=== PATIENT | male | born 1950 | race Caucasian/White ===

== ENCOUNTER 2020-05-31 15:22 | Outpatient (REF) | payer OTHER, SELFPAY | END 2020-05-31 15:23 | disposition home or self-care (01) | LOC: HO.LAB 15:22 | PROVIDERS: PCP Internal Medicine; Visit Provider Internal Medicine | DX: Z20.822 Contact with and (suspected) exposure to COVID-19 (principal) | CPT/HCPCS: 36415; C9803; U0003 ==

== ENCOUNTER 2020-06-30 10:24 | Outpatient (REF) | payer OTHER, SELFPAY | END 2020-06-30 10:25 | disposition home or self-care (01) | LOC: HO.LAB 10:24 | PROVIDERS: Visit Provider Internal Medicine | DX: Z20.822 Contact with and (suspected) exposure to COVID-19 (principal) | CPT/HCPCS: 36415; C9803; U0003; U0005 ==

== ENCOUNTER 2020-07-06 14:09 | Inpatient (IN) | payer MEDICARE, SELFPAY ==
--- NOTE | ~2020-07-06 | XR_ITS ---
EXAMINATION: XR CHEST CLINICAL INFORMATION: Dyspnea COMPARISON: Chest radiographs 11/08/2015, 11/20/2012 TECHNIQUE: Portable upright AP view of the chest was obtained. FINDINGS: There are postsurgical changes with mediastinal clips and sternotomy wires. There is mild cardiac enlargement. Subtle groundglass opacities are suggested along the bronchovascular markings without lobar or segmental airspace consolidation or air bronchograms. The costophrenic sulci are clear. The vascularity is within normal. The visualized hilar and mediastinal contours and remainder of the bony structures are unremarkable. XR/XR chest 1V IMPRESSION: Subtle scattered bronchovascular groundglass opacities. Finding may be related to underlying early atypical or viral pneumonia.
--- NOTE | ~2020-07-06 | CT_ITS ---
EXAMINATION: CT ANGIOGRAM OF THE CHEST WITH AND WITHOUT CONTRAST (CT PULMONARY ANGIOGRAM FOR PE) CLINICAL INFORMATION: Reason for Exam dyspnea, elevated d-dimer r/o PE COMPARISON: Chest radiographs 07/06/2020, 11/08/2015 TECHNIQUE: Prior to contrast administration, noncontrast localization images were obtained. Subsequently, multidetector volumetric imaging was performed from the thoracic inlet to below the diaphragms following the administration of 65 mL Omnipaque 350 intravenous contrast. Sagittal, coronal, and MIP oblique sagittal reformatted images were obtained on the CT workstation, uploaded to PACS, and reviewed. This CT examination was performed using dose optimization techniques as appropriate, variously including the following: *Automated exposure control *Adjustment of mA and/or kV according to patient size (this includes techniques or standardized protocols for targeted exams where dose is matched to indication/reason for exam; i.e. extremities or head) *Use of iterative reconstruction technique Total exam dose-length product 524 mGy-cm FINDINGS: QUALITY OF STUDY/CONTRAST BOLUS: Satisfactory. PULMONARY ARTERIES: No central or segmental pulmonary emboli. Assessment is limited by mild respiratory motion artifact. THORACIC AORTA: The thoracic aorta is normal in caliber and shows no aneurysmal enlargement. There is no contrast in the aorta to assess for dissection. LUNG: There is mild respiratory motion artifact. There is no lobar or segmental airspace consolidation. No mass or lobar segmental airspace consolidation. There is peribronchial and perivascular cuffing. PLEURA: Small bibasilar effusions, greater on right. No pleural thickening or pleural-based mass. MEDIASTINUM: Prior median sternotomy. Cardiomegaly. No pericardial effusion. No septal bowing. CHEST WALL/AXILLA: No axillary or internal mammary lymphadenopathy. OSSEOUS STRUCTURES: Prior median sternotomy. Multilevel degenerative changes thoracic spine. No acute bony abnormality. UPPER ABDOMEN: There is some reflux of contrast into the hepatic veins suggesting elevated right heart pressure. CT/CT angio chest PE protocol IMPRESSION: 1. No visible acute or chronic pulmonary embolism. 2. No thoracic aortic enlargement. No contrast aorta to assess for dissection. 3. Respiratory motion artifact. No lobar or segmental airspace consolidation. 4. Cardiomegaly. Prior median sternotomy. Peribronchial and perivascular cuffing with small bibasilar effusions. Reflux of contrast into the hepatic veins suggesting elevated right heart pressure. VTE: negative
--- NOTE | 2020-07-06 07:47 | ECG_ITS ---
Test Reason : SOB Blood Pressure : / mmHG Vent. Rate : 088 BPM Atrial Rate : 086 BPM P-R Int : 000 ms QRS Dur : 074 ms QT Int : 388 ms P-R-T Axes : 000 -49 -16 degrees QTc Int : 469 ms Atrial fibrillation with premature ventricular or aberrantly conducted complexes Left axis deviation Inferior infarct , age undetermined Abnormal ECG When compared with ECG of 01-AUG-2002 06:49, Atrial fibrillation has replaced Sinus rhythm Vent. rate has increased BY 29 BPM Inferior infarct is now Present QT has lengthened Referred By: Debi Lockwood Electronically Signed By:KEILY REARDON MD
[2020-07-06 14:19] VITALS: BP 157/102; PULSE 79; RESP 18; TEMP 36.9; O2SAT 96; BMI 42.9
--- NOTE | 2020-07-06 14:22 | ED.ARRPALP ---
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 Mode of arrival: ambulatory Limitations: no limitations History of Present Illness HPI narrative: 70 yo male with HTN, HPL, s/p CABG 3V in 2002 has not seen a director medical safety regularly c/o chest tightness with exertion and BROOKS x 5 days sent by PCP for chest pain as well as new onset afib MD complaint: rapid heart beat Onset (ago): day(s) (5) Duration: intermittent Severity: moderate Context: occurred during exertion Associated symptoms: shortness of breath Related Data Home Medications Medication Instructions Recorded Confirmed lancets #100 ea 04/28/20 losartan 100 mg tablet 100 mg PO DAILY 04/28/20 rosuvastatin 40 mg tablet 40 mg PO BEDTIME 04/28/20 07/06/20 trazodone 100 mg tablet 100 mg PO BEDTIME PRN 04/28/20 07/06/20 hydrochlorothiazide 1 tab PO DAILY 07/06/20 07/06/20 metoprolol tartrate 1 tab PO BID 07/06/20 07/06/20 tamsulosin 1 cap PO DAILY 07/06/20 07/06/20 Allergies Allergy/AdvReac Type Severity Reaction Status Date / Time lisinopril Allergy Cough Verified 04/27/20 13:55 Review of Systems Review of Systems: Constitutional : No Fever, No Chills ENT/Mouth : No sore throat, No Rhinorrhea, No Swallowing Difficulty Eyes: No Eye Pain, No Swelling, No Redness Cardiovascular : pos Chest Pain, positive SOB, No Orthopnea, positive Edema Respiratory : No Cough, No Sputum, No Wheezing, positive dyspnea Gastrointestinal : No Nausea, No Vomiting, No Diarrhea, No abdominal Pain, No Hematochezia, No Melena Genitourinary : No Dysuria, No Urinary Frequency, No Hematuria Musculoskeletal : No joint pain, No Myalgias Skin : No Skin Lesions, No rash Neuro : No Weakness, No Numbness, No Dizziness, No Headache Psych : No Anxiety/Panic, No Depression Heme/Lymph: No Bruising, No Lymphadenopathy Endocrine : No Polyuria, No Polydipsia All other systems reviewed and are negative [facility] Past Medical History Attestation statement: The following information was validated with the patient. Source: old records reviewed and obtained from family Medical History (Updated 07/06/20 @ 16:32 by Debi Lockwood DO) GERD (gastroesophageal reflux disease) High cholesterol HTN (hypertension) Surgical History (Updated 07/06/20 @ 14:59 by Debi Lockwood DO) Hx of CABG Social History Social History (Updated 07/06/20 @ 15:00 by Debi Lockwood DO) Alcohol intake: never Smoking Status: Former smoker Use of substances other than those prescribed or required for medical reasons: No Advance Directives: No Advance Directives Information Provided: No Physical Exam Vital Signs: Vital Signs: Last Vital Signs Temp 98.5 F 07/06/20 14:19 Pulse 79 07/06/20 14:19 Resp 18 07/06/20 14:19 BP 157/102 H 07/06/20 14:19 Pulse Ox 96 07/06/20 14:19 Body Mass Index 42.9 Appearance: Alert. Oriented X3. No acute distress. Eyes: Pupils equal, round and reactive to light. ENT: Pharynx normal. Neck: Normal inspection. Neck supple. CVS: irregular heart rate and rhythm. Pulses normal. Respiratory: No respiratory distress. Breath sounds rales in the bases. Abdomen: Soft and nontender. Skin: Skin warm and dry. Normal skin color. Normal skin turgor. Extremities: 1+ pitting bilateral lower extremity edema. No calf ttp Neuro: Oriented X 3. No motor deficit. No sensory deficit. Course Course Course Narrative: CTA PE ordered for elevated ddimer, CXR ?COVID BNP elevated IV lasix ordered, COVID negative COVID PCR negative on 06/30 as well HAS-BLED score 1, CHADSvasc - 3 rate controlled but appears in failure, IV lasix ordered and PO aspirin taken at home already, no PE, will order eliquis at this time hospitalist notified and aware MDM - Arrhythmia/Palpitations MDM Narrative Medical decision making narrative: 70 yo male with 3V CABG in 2002, HTN, HPL here with 5 days of shortness of breath and BROOKS as well as chest pain on exertion, went to PCP found to be in afib, will need labs, EKG, troponin, BNP, ddimer if positive will obtain CTA - COVID swab ordered, no prior episodes of afib in past, has not seen director medical safety regularly, has no pain currently Lab Data Result diagrams: 07/06/20 14:29 07/06/20 14:29 Labs: Lab Results 07/06/20 07/06/20 07/06/20 Range/Units 14:28 14:28 14:28 WBC (4.8-10.8) X10*3/uL RBC (4.60-5.80) X10*6/uL Hgb (14.0-18.0) g/dl Hct (42-52) % MCV (80-98) fL MCH (27.0-33.0) pg MCHC (31.0-36.0) g/dl RDW (11.0-16.0) % Plt Count (160-400) X10*3/uL MPV (9.4-12.4) fL Immature Gran % (Auto) (0.0-0.4) % Neut % (Auto) (45-73) % Lymph % (Auto) (20-40) % [place] % (Auto) (2-11) % Eos % (Auto) (0-4) % Baso % (Auto) (0-2) % Lymph # (Auto) (1.2-4.9) X10*3/uL [place] # (Auto) (0.1-1.2) X10*3/uL Eos # (Auto) (0.0-0.4) X10*3/uL Baso # (Auto) (0.0-0.2) X10*3/uL Abs Immat Gran (auto) (0.00-0.03) X10*3/uL Absolute Neuts (auto) (2.0-8.3) X10*3/uL Absolute Nucleated RBC (0.0-0.012) X10*3/uL Nucleated RBC % (auto) (0.0-0.2) /100WBC PT 13.8 H (10.8-13.0) SEC INR 1.2 H (0.9-1.1) APTT 33.1 (24.1-38.0) SEC D-Dimer 484 NG/ML Sodium (135-145) mmol/L Potassium (3.3-5.1) mmol/L Chloride (96-108) mmol/L Carbon Dioxide (22-29) mmol/L Anion Gap (12-20) BUN (9-16) mg/dL Creatinine (0.5-1.4) mg/dL Estim Creat Clear Calc Estimated GFR Random Glucose (60-115) mg/dL Calcium (8.4-10.2) mg/dL Magnesium (1.6-2.6) mg/dL Total Bilirubin (0.0-1.0) mg/dL Direct Bilirubin (0.0-0.5) mg/dL AST (5-37) U/L ALT (0-40) U/L Alkaline Phosphatase (39-117) U/L Troponin I High Sens 13.7 (<3.5-35.0) ng/L B-Natriuretic Peptide Cancelled 581 H Total Protein (6.5-8.0) g/dL Albumin (3.5-5.0) g/dL TSH (0.32-4.0) uIU/mL COVID-19 (LINDA) (Negative) COVID-19 Clin Com 07/06/20 07/06/20 07/06/20 Range/Units 14:28 14:29 14:29 WBC 9.4 (4.8-10.8) X10*3/uL RBC 5.00 (4.60-5.80) X10*6/uL Hgb 14.2 (14.0-18.0) g/dl Hct 45.2 (42-52) % MCV 90.4 (80-98) fL MCH 28.4 (27.0-33.0) pg MCHC 31.4 (31.0-36.0) g/dl RDW 15.8 (11.0-16.0) % Plt Count 153 L (160-400) X10*3/uL MPV 11.3 (9.4-12.4) fL Immature Gran % (Auto) 0.3 (0.0-0.4) % Neut % (Auto) 55.8 (45-73) % Lymph % (Auto) 30.8 (20-40) % [place] % (Auto) 11.6 H (2-11) % Eos % (Auto) 1.1 (0-4) % Baso % (Auto) 0.4 (0-2) % Lymph # (Auto) 2.9 (1.2-4.9) X10*3/uL [place] # (Auto) 1.1 (0.1-1.2) X10*3/uL Eos # (Auto) 0.1 (0.0-0.4) X10*3/uL Baso # (Auto) 0.0 (0.0-0.2) X10*3/uL Abs Immat Gran (auto) 0.03 (0.00-0.03) X10*3/uL Absolute Neuts (auto) 5.3 (2.0-8.3) X10*3/uL Absolute Nucleated RBC 0.000 (0.0-0.012) X10*3/uL Nucleated RBC % (auto) 0.0 (0.0-0.2) /100WBC PT (10.8-13.0) SEC INR (0.9-1.1) APTT (24.1-38.0) SEC D-Dimer NG/ML Sodium 142 (135-145) mmol/L Potassium 4.5 (3.3-5.1) mmol/L Chloride 111 H (96-108) mmol/L Carbon Dioxide 21 L (22-29) mmol/L Anion Gap 15 (12-20) BUN 19 H (9-16) mg/dL Creatinine 0.80 (0.5-1.4) mg/dL Estim Creat Clear Calc 110.4 Estimated GFR > 60 Random Glucose 81 (60-115) mg/dL Calcium 8.7 (8.4-10.2) mg/dL Magnesium 2.1 (1.6-2.6) mg/dL Total Bilirubin 1.0 (0.0-1.0) mg/dL Direct Bilirubin 0.4 (0.0-0.5) mg/dL AST 22 (5-37) U/L ALT 17 (0-40) U/L Alkaline Phosphatase 79 (39-117) U/L Troponin I High Sens (<3.5-35.0) ng/L B-Natriuretic Peptide Total Protein 7.5 (6.5-8.0) g/dL Albumin 4.1 (3.5-5.0) g/dL TSH 0.54 (0.32-4.0) uIU/mL COVID-19 (LINDA) Negative (Negative) COVID-19 Clin Com See Note ECG Data Attestation: I personally reviewed and interpreted this ECG as follows: ECG interpretation date: 07/06/20 ECG interpretation time: 14:30 Interpretation: Rate: 88 Rhythm: afib wih PVCs [place]: left Normal QRS complex. ST T wave : normal, no DIDIER qTC: normal prior studies: no acute ischemia The study has been interpreted contemporaneously by me. . Discharge Plan Discharge Clinical Impression: Acute dyspnea Atrial fibrillation Qualifiers: Atrial fibrillation type: unspecified Qualified Code(s): I48.91 - Unspecified atrial fibrillation Chest pain Qualifiers: Chest pain type: unspecified Qualified Code(s): R07.9 - Chest pain, unspecified Congestive cardiac failure Qualifiers: Heart failure type: unspecified Heart failure chronicity: acute Qualified Code(s): I50.9 - Heart failure, unspecified Patient Disposition: Admitted As Inpatient
[2020-07-06 14:34] LABS: MANUAL DIFF FLAG NO
[2020-07-06 14:39] LABS: Basophils Percent Auto 0.4 % (0-2); Eosinophils Absolute Auto 0.1 X10*3/uL (0.0-0.4); Eosinophils Percent Auto 1.1 % (0-4); Hematocrit 45.2 % (42-52); Hemoglobin 14.2 g/dl (14.0-18.0); Imm Gran Abs Auto 0.03 X10*3/uL (0.00-0.03); Imm Gran Pct Auto 0.3 % (0.0-0.4); Lymphocytes Absolute Auto 2.9 X10*3/uL (1.2-4.9); Lymphocytes Percent Auto 30.8 % (20-40); Mean Corpuscular HGB Conc 31.4 g/dl (31.0-36.0); Mean Corpuscular Hemoglobin 28.4 pg (27.0-33.0); Mean Corpuscular Volume 90.4 fL (80-98); Mean Platelet Volume 11.3 fL (9.4-12.4); Monocytes Absolute Auto 1.1 X10*3/uL (0.1-1.2); Monocytes Percent Auto 11.6 % (2-11); Neutrophils Absolute Auto 5.3 X10*3/uL (2.0-8.3); Neutrophils Percent Auto 55.8 % (45-73); Platelet Count 153 X10*3/uL (160-400); Red Cell Distribution Width 15.8 % (11.0-16.0); White Blood Count 9.4 X10*3/uL (4.8-10.8)
[2020-07-06 14:44] LABS: INTERNATIONAL NORM RATIO 1.2 (0.9-1.1); Prothrombin Time 13.8 SEC (10.8-13.0)
[2020-07-06 14:47] LABS: D Dimer 484 NG/ML; Partial Thromboplastin Time 33.1 SEC (24.1-38.0)
[2020-07-06 15:02] LABS: COVID-19 Test Negative (Negative); IDNOW Serial# 9DD0AD1C
[2020-07-06 15:08] LABS: Alanine Aminotransferase 17 U/L (0-40); Albumin Level 4.1 g/dL (3.5-5.0); Alkaline Phosphatase 79 U/L (39-117); Anion Gap 15 (12-20); Aspartate Amino Transferase 22 U/L (5-37); Bilirubin Direct 0.4 mg/dL (0.0-0.5); Blood Urea Nitrogen 19 mg/dL (9-16); Calcium 8.7 mg/dL (8.4-10.2); Carbon Dioxide 21 mmol/L (22-29); Chloride 111 mmol/L (96-108); Creatinine Clr Calc Pharmacy 110.4; Estimated Glomerular Filt Rate > 60; Glucose Random 81 mg/dL (60-115); Magnesium 2.1 mg/dL (1.6-2.6); Potassium 4.5 mmol/L (3.3-5.1); Sodium 142 mmol/L (135-145); Total Protein 7.5 g/dL (6.5-8.0)
[2020-07-06 15:09] LABS: B Type Natriuretic Peptide 581 pg/mL (<100); Troponin-I High Sensitivity 13.7 ng/L (<3.5-35.0)
[2020-07-06 15:27] LABS: Thyroid Stimulating Hormone 0.54 uIU/mL (0.32-4.0)
[2020-07-06] MEDS: iohexoL 350 MG/ML 100 ML INFUS..BTL 65 ML IV (16:04)
[2020-07-06 16:48] VITALS: BP 169/100; PULSE 88; RESP 18; TEMP 36.6; O2SAT 97
[2020-07-06] MEDS: Apixaban 5 MG TABLET PO (16:59)
--- NOTE | 2020-07-06 17:39 | P.HPHOSP_ITS ---
History of Present Illness Date of Service: 07/06/20 Chief Complaint: chest pain, shortness of breath This is a 70-year-old Cymro-speaking male with history of coronary artery disease who presents to the emergency department with chest pain and shortness of breath. His history was obtained with the help of a military pay clerk. [place] so he is a vague historian. Patient reports chest pain in the center of his chest which is worse with exertion and reproducible on exam. It has been intermittent over the past 5 days. It typically lasts about 5 minutes. There is no pleuritic component. He also reports dyspnea on exertion. His shortness of breath improves when lying down. He denies cough, fever or chills. He reports palpitations but it is unclear how often this occurs. He has noticed swelling in his legs. He has a history of CAD but is unable to describe any of his medications or other medical history. HIs EKG was significant for atrial fibrillation with controlled heart rate. BNP was 581 and troponin 13.7. He does not think he has a history of atrial fibrillation. Was negative for PE, did show small bibasilar effusions. He was treated with IV Lasix and 1 dose of Eliquis. Review of Systems Review of Systems: Yes all other systems are reviewed and are negative Constitutional: Constitutional: Denies chills and Denies fever(s) Cardiovascular: Cardiovascular: Reports chest pain, Reports palpitations, Reports dyspnea on exertion and Denies orthopnea Respiratory: Respiratory: Denies cough and Reports dyspnea on exertion Gastrointestinal: Gastrointestinal: Denies abdominal pain Endocrine: Endocrine: Reports palpitations [facility] Medical History (Updated 07/06/20 @ 17:46 by ANTONIO Hairston) BPH (benign prostatic hyperplasia) CAD (coronary artery disease) GERD (gastroesophageal reflux disease) High cholesterol HTN (hypertension) Functional capacity: independent ambulation Family History Other No cardiac disease Family history: reviewed and not pertinent Surgical History Hx of CABG Social History (Updated 07/06/20 @ 17:47 by ANTONIO Hairston) Household Members: Spouse Alcohol intake: never Smoking Status: Former smoker Use of substances other than those prescribed or required for medical reasons: No Advance Directives: No Advance Directives Information Provided: No Meds Allergies Allergy/AdvReac Type Severity Reaction Status Date / Time lisinopril Allergy Cough Verified 04/27/20 13:55 Active Medications: Current Medications Generic Name Dose Route Start Last Admin Trade Name Freq PRN Reason Stop Dose Admin Pharmacy Consult 1 each 07/06/20 16:34 Consult Rx Perform Med Rec MISCELLANE ONCE PRN Consult order Home Medications Medication Instructions Recorded Confirmed Last Taken Type lancets #100 ea 04/28/20 Unknown History hydrochlorothiazide 1 tab PO DAILY 07/06/20 07/06/20 Unknown History metoprolol tartrate 1 tab PO BID 07/06/20 07/06/20 Unknown History rosuvastatin 1 tab PO BEDTIME 07/06/20 07/06/20 Unknown History tamsulosin 1 cap PO DAILY 07/06/20 07/06/20 Unknown History trazodone 1 tab PO BEDTIME PRN 07/06/20 07/06/20 Unknown History Physical Exam Vital Signs and Narrative: Vital Signs: Last Vital Signs Temp 97.8 F 07/06/20 16:48 Pulse 88 07/06/20 16:48 Resp 18 07/06/20 16:48 BP 169/100 H 07/06/20 16:48 Pulse Ox 97 07/06/20 16:48 Body Mass Index 42.9 Const: General: alert and awake Nutritional Appearance: obese Orientation/consciousness: patient oriented x3 HENMT: Head: Yes normocephalic and Yes atraumatic Eyes: Sclerae: sclerae normal Chest: Chest palpation & inspection: normal inspection of the chest Resp: Effort & Inspection: normal respiratory effort and no respiratory distress Auscultation: rales bilateral at the base Cardio: Rate: regular rate Rhythm: abnormal rhythm irregularly irregular GI: Palpation (GI): Soft to palpation and nontender Skin: General skin exam: no rashes or lesions noted Neuro: General: patient oriented x3 Cranial nerves: Yes CN's II-XII intact bilaterally and Yes Bilaterally intact EOM present Extrem: Other: b/l leg edema Results Labs CBC and Chem 7: 07/06/20 14:29 07/06/20 14:29 Labs: Laboratory Results - last 24 hr 07/06/20 07/06/20 07/06/20 14:28 14:28 14:28 MCV MCH MCHC RDW Plt Count MPV Immature Gran % (Auto) Neut % (Auto) Lymph % (Auto) [place] % (Auto) Eos % (Auto) Baso % (Auto) Lymph # (Auto) [place] # (Auto) Eos # (Auto) Baso # (Auto) Abs Immat Gran (auto) Absolute Neuts (auto) Absolute Nucleated RBC Nucleated RBC % (auto) PT 13.8 H INR 1.2 H APTT 33.1 D-Dimer 484 Anion Gap Estim Creat Clear Calc Estimated GFR Random Glucose Calcium Magnesium Total Bilirubin Direct Bilirubin AST ALT Alkaline Phosphatase Troponin I High Sens 13.7 B-Natriuretic Peptide Cancelled 581 H Total Protein Albumin TSH COVID-19 (LINDA) COVID-19 Clin Com 07/06/20 07/06/20 07/06/20 14:28 14:29 14:29 MCV 90.4 MCH 28.4 MCHC 31.4 RDW 15.8 Plt Count 153 L MPV 11.3 Immature Gran % (Auto) 0.3 Neut % (Auto) 55.8 Lymph % (Auto) 30.8 [place] % (Auto) 11.6 H Eos % (Auto) 1.1 Baso % (Auto) 0.4 Lymph # (Auto) 2.9 [place] # (Auto) 1.1 Eos # (Auto) 0.1 Baso # (Auto) 0.0 Abs Immat Gran (auto) 0.03 Absolute Neuts (auto) 5.3 Absolute Nucleated RBC 0.000 Nucleated RBC % (auto) 0.0 PT INR APTT D-Dimer Anion Gap 15 Estim Creat Clear Calc 110.4 Estimated GFR > 60 Random Glucose 81 Calcium 8.7 Magnesium 2.1 Total Bilirubin 1.0 Direct Bilirubin 0.4 AST 22 ALT 17 Alkaline Phosphatase 79 Troponin I High Sens B-Natriuretic Peptide Total Protein 7.5 Albumin 4.1 TSH 0.54 COVID-19 (LINDA) Negative COVID-19 Clin Com See Note Imaging Radiologist's Impressions: Impressions Chest X-Ray 07/06/20 14:23 IMPRESSION: Subtle scattered bronchovascular groundglass opacities. Finding may be related to underlying early atypical or viral pneumonia. Chest CTA 07/06/20 14:54 IMPRESSION: 1. No visible acute or chronic pulmonary embolism. 2. No thoracic aortic enlargement. No contrast aorta to assess for dissection. 3. Respiratory motion artifact. No lobar or segmental airspace consolidation. 4. Cardiomegaly. Prior median sternotomy. Peribronchial and perivascular cuffing with small bibasilar effusions. Reflux of contrast into the hepatic veins suggesting elevated right heart pressure. VTE: negative Assessment and Plan (1) Atrial fibrillation: Qualifiers: Atrial fibrillation type: unspecified Qualified Code(s): I48.91 - Unspecified atrial fibrillation Status: Acute (2) Acute dyspnea: Status: Acute (3) Chest pain: Qualifiers: Chest pain type: unspecified Qualified Code(s): R07.9 - Chest pain, unspecified Status: Acute This is a 70-year-old Cymro-speaking male with a history of CAD status post CABG, BPH, hypertension presents to the emergency department with shortness of breath and chest pain found to have new onset atrial fibrillation possible CHF New onset atrial fibrillation Heart rate controlled Chads score 3. TSH wnl -continue dose of beta-alana for rate control -given 1 dose of Eliquis in ED, will continue -echocardiogram -cardiology consult Dyspnea No evidence of infection sx worse with exertion. small effusions on imaging BNP 581, no previous. seems c/w chf -IV lasix -echo -cardiology consult -trend troponin Chest pain ? r/t afib h/o CAD s/p CABG, but initial trop 13.7 also somewhat reproducible on exam -trend troponin -continue home asa, statin, BB HTN continue HCTZ, metoprolol BPH continue flomax Morbid obesity 42.9 likely contributing to dyspnea dvt ppx - eliquis code status - full code this case was discussed with Dr. Cabrera
[2020-07-06] MEDS: Furosemide 40 MG/4 ML VIAL IVPUSH (17:58)
--- NOTE | 2020-07-06 18:21 | PM.EVENT ---
Event Note Date of Service: 07/06/20 Event Note: The patient was seen and evaluated with ANTONIO Melgar. I agree with her note, assessment and plan with the following. In summary, 70 years old male with PMH of CAD, HTN, GERD, BPH who presents to the hospital with chest pain and shortness of breath. He is not the best historian he reports episodes of pain that comes and goes. He also reported dyspnea on exertion. Denies any fever, chills, coughing, swelling in his extremities. Found to be in atrial fibrillation in the emergency with unclear chronicity. Admitted for further evaluation and treatment. New onset atrial fibrillation Rate control Moises score of 3 Start Eliquis full dose To check echo and get cardiology eval in the morning Dyspnea on exertion Seems to be related to episodes of AFib Will monitor and check physical therapy evaluation, if continue to be symptomatic might consider cardioversion EKG showing no ST or T-wave changes to suggest ACS Rest of evaluations by PA note.
[2020-07-06 19:43] VITALS: BP 169/96; PULSE 82; RESP 18; O2SAT 97
[2020-07-06 22:00] LABS: Troponin-I High Sensitivity 12.7 ng/L (<3.5-35.0)
[2020-07-06 22:06] VITALS: BP 164/95; PULSE 76; RESP 25; TEMP 36.9; O2SAT 97
[2020-07-06 22:07] VITALS: BP 164/95; PULSE 74
[2020-07-06] MEDS: Metoprolol Tartrate 50 MG TABLET PO (22:07)
[2020-07-06] MEDS: Atorvastatin Calcium 80 MG TABLET PO (22:07)
[2020-07-07] VITALS (15 sets, daily range): BP systolic 116–157; BP diastolic 66–103; PULSE 58–76; RESP 14–22; TEMP 36.4–36.8; O2SAT 94–98; BMI 41.8
--- NOTE | 2020-07-07 00:11 | PC.NURSE ---
pt oob to bathroom with steady gait. pt states he suffers from chonic back pain to his lower back. pt denies chest pain.
--- NOTE | 2020-07-07 02:50 | PC.NURSE ---
pt ambulated to bathroom with steady gait. no sob noted. pt back to bed and denies pain. vitals stable skin pink warm and dry.
[2020-07-07 05:59] LABS: Imm Gran Abs Auto 0.02 X10*3/uL (0.00-0.03); Imm Gran Pct Auto 0.2 % (0.0-0.4); Mean Platelet Volume 11.5 fL (9.4-12.4); PLT CLUMP 1; SCAN SMEAR FLAG 1
[2020-07-07 06:01] LABS: Basophils Percent Auto 0.5 % (0-2); Eosinophils Absolute Auto 0.1 X10*3/uL (0.0-0.4); Eosinophils Percent Auto 1.2 % (0-4); Hematocrit 43.4 % (42-52); Hemoglobin 13.9 g/dl (14.0-18.0); Lymphocytes Absolute Auto 1.8 X10*3/uL (1.2-4.9); Lymphocytes Percent Auto 22.3 % (20-40); MANUAL DIFF FLAG NO; Mean Corpuscular Hemoglobin 28.8 pg (27.0-33.0); Monocytes Absolute Auto 0.9 X10*3/uL (0.1-1.2); Monocytes Percent Auto 10.7 % (2-11); Neutrophils Absolute Auto 5.3 X10*3/uL (2.0-8.3); Neutrophils Percent Auto 65.1 % (45-73); Platelet Count 134 X10*3/uL (160-400); Red Blood Count 4.82 X10*6/uL (4.60-5.80); Red Cell Distribution Width 15.8 % (11.0-16.0); White Blood Count 8.1 X10*3/uL (4.8-10.8)
[2020-07-07 06:22] LABS: B Type Natriuretic Peptide 579 pg/mL (<100)
[2020-07-07 06:35] LABS: Anion Gap 12 (12-20); Blood Urea Nitrogen 18 mg/dL (9-16); Calcium 8.8 mg/dL (8.4-10.2); Carbon Dioxide 26 mmol/L (22-29); Chloride 108 mmol/L (96-108); Creatinine Clr Calc Pharmacy 110.4; Estimated Glomerular Filt Rate > 60; Glucose Random 96 mg/dL (60-115); Potassium 3.8 mmol/L (3.3-5.1); Sodium 142 mmol/L (135-145)
[2020-07-07] MEDS: 0.9 % Sodium Chloride Flush 3 ML SYRINGE IVFLUSH ×3 (07:34→21:33)
--- NOTE | 2020-07-07 07:35 | PC.NURSE ---
pt is alert and oriented x3. Pt has bilateral +1 pitting edema on lower legs. skin is shiny and taut but normal in color, pt denies any pain in legs or feet. pedal pulses present bilaterally. lung sounds clear bilaterally in all [place], pt denies feeling short of breath and denies pain with respirations. respiratory rate and depth normal, effort is non-labored. pt able to speak in full sentences. pt given bedside urinal to monitor intake and output. pt currently eating breakfast. pt aware of plan of care admission to hospital.
--- NOTE | 2020-07-07 09:05 | PC.NURSE ---
pt's son arely stopped in for an updated status on his father. son states that he has been unable to get his father on his phone since yesterday after his arrival to ed. pt is aware that is was in the waiting room for an update. pt 's phone was so this rn has put pt's phone to charge for him. pt's son is aware of plan of care for admission to hospital for his father.
[2020-07-07] MEDS: Metoprolol Tartrate 50 MG TABLET PO (09:14)
[2020-07-07] MEDS: Apixaban 5 MG TABLET PO ×2 (09:14→21:29)
[2020-07-07] MEDS: hydroCHLOROthiazide 25 MG TABLET PO (09:15)
[2020-07-07] MEDS: Tamsulosin HCL 0.4 MG CAPSULE PO (09:15)
--- NOTE | 2020-07-07 09:15 | PC.NURSE ---
this rn called pt's bing ([phone]) and gave her an update on pt status. she is aware that pt's phone is charging and he will call her as soon as the phone charged. pt's son earlier had some concern about pt signing any paper work because son states that his father is unable to read and write. aware.
[2020-07-07] MEDS: Furosemide 40 MG/4 ML VIAL IVPUSH (09:16)
--- NOTE | 2020-07-07 10:06 | PC.NURSE ---
Rechecked blood pressure, 135/95, pt has voided 500cc of clear yellow urine since 7am. pt still has slight pitting in lower legs bilaterally but less than before. skin is still shiny and taut. pt denies pain in lower legs or feet bilaterally. pedal pulses palpable bilaterally. aware.
--- NOTE | 2020-07-07 11:10 | PC.NURSE ---
pt is having echocardiogram being done at bedside.
--- NOTE | 2020-07-07 12:22 | P.CONCA_ITS ---
History of Present Illness History of Present Illness Date of Service: 07/07/20 Requesting physician: Bharathi Quintanilla Consult reason: chest pain and congestive heart failure Chief complaint: Afib CHF Narrative: Thank you for asking us to consult on Chucko0 for new onset congestive heart failure. Patient is Lao speaking 70-year-old male with prior history of coronary artery disease status post 3 vessel coronary artery bypass grafting by Dr. Rasmussen at [facility] in July of 2002 for angina. Patient since then has done generally well. Saw his food services director about 3 weeks ago when he was doing well. About a week ago he started noticing symptoms of exertional chest discomfort which he describes as pressure when he t jessica to walk fast in a grocery store with his . Symptoms then subside with rest in 5 minutes. He has also been noticing increasing exertional shortness of breath, however says he has been short of breath ever since his childhood. He has noticed some leg swelling over the last week as well as gaining weight and some abdominal distension as well as shortness of breath when he is laying down. He also noticed some palpitations however is very vague about the same. He came to the hospital was noted to be in atrial fibrillation with controlled ventricular response was noted to be in congestive heart failure by elevated BNP. He has been given Lasix with good diuresis. He says he feels better and shortness of breath is improved. Denies any chest pressure right now. His troponins are flat Review of Systems Constitutional: Constitutional: Denies body ache(s), Denies chills, Denies fever(s) and Denies headache(s) ENT: Denies headache(s) Cardiovascular: Cardiovascular: Reports Abdominal Distension, Reports chest pain with activity, Reports leg edema, Denies Loss of Consciousness, Denies palpitations, Reports dyspnea on exertion and Reports orthopnea Respiratory: Respiratory: Denies cough, Denies excessive phlegm production and Reports dyspnea on exertion Gastrointestinal: Gastrointestinal: Reports no additional gastrointestinal complaints Neurologic: Reports system reviewed and no additional complaints, except as documented and Denies headache(s) Psychiatric: Psychiatric: Reports no additional psychiatric complaints Endocrine: Endocrine: Reports no additional endocrine complaints and Denies palpitations PMFSH Past Medical History Medical History (Updated 07/07/20 @ 12:33 by Jaison Rivera MD) BPH (benign prostatic hyperplasia) CAD (coronary artery disease) Congestive heart failure Exertional chest pain GERD (gastroesophageal reflux disease) High cholesterol HTN (hypertension) Functional capacity: independent ambulation Family History Family History Other No cardiac disease Family history: reviewed and not pertinent Surgical History Surgical History Hx of CABG Social History Social History Household Members: Spouse Alcohol intake: never Smoking Status: Former smoker Use of substances other than those prescribed or required for medical reasons: No Advance Directives: No Advance Directives Information Provided: No Meds Allergies Allergy/AdvReac Type Severity Reaction Status Date / Time lisinopril Allergy Cough Verified 04/27/20 13:55 Active Medications: Current Medications Generic Name Dose Route Start Last Admin Trade Name Freq PRN Reason Stop Dose Admin Acetaminophen 650 mg 07/06/20 20:40 Acetaminophen 325 Mg Tablet PO Q6H PRN Pain, Mild (Pain Scale 1-3) Apixaban 5 mg 07/07/20 09:00 07/07/20 09:14 Apixaban 5 Mg Tablet PO 5 mg BID FABY Administration Atorvastatin Calcium 80 mg 07/06/20 21:00 07/06/20 22:07 Atorvastatin Calcium 80 Mg Tablet PO 80 mg BEDTIME FABY Administration Docusate Sodium 100 mg 07/06/20 20:40 Docusate Sodium 100 Mg Capsule PO DAILY PRN Constipation Furosemide 40 mg 07/07/20 09:00 07/07/20 09:16 Furosemide 40 Mg/4 Ml Vial IVPUSH 40 mg DAILY FABY Administration Protocol Hydrochlorothiazide 25 mg 07/07/20 09:00 07/07/20 09:15 Hydrochlorothiazide 25 Mg Tablet PO 25 mg DAILY FABY Administration Protocol Metoprolol Tartrate 50 mg 07/06/20 21:00 07/07/20 09:14 Metoprolol Tartrate 50 Mg Tablet PO 50 mg BID FABY Administration Protocol Ondansetron HCl 4 mg 07/06/20 20:40 Ondansetron Hcl 4 Mg/2 Ml Vial IVPUSH Q8H PRN Nausea and Vomiting Pharmacy Consult 1 each 07/06/20 16:34 Consult Rx Perform Med Rec MISCELLANE ONCE PRN Consult order Sodium Chloride 3 ml 07/07/20 00:00 07/07/20 07:34 0.9 % Sodium Chloride Flush 3 Ml Syringe IVFLUSH 3 ml QSHIFT FABY Administration Tamsulosin HCl 0.4 mg 07/07/20 09:00 07/07/20 09:15 Tamsulosin Hcl 0.4 Mg Capsule PO 0.4 mg DAILY FABY Administration Trazodone HCl 100 mg 07/06/20 20:40 Trazodone Hcl 100 Mg Tablet PO BEDTIME PRN Insomnia Home Medications Medication Instructions Recorded Confirmed Last Taken Type lancets #100 ea 04/28/20 Unknown History hydrochlorothiazide 1 tab PO DAILY 07/06/20 07/06/20 Unknown History metoprolol tartrate 1 tab PO BID 07/06/20 07/06/20 Unknown History rosuvastatin 1 tab PO BEDTIME 07/06/20 07/06/20 Unknown History tamsulosin 1 cap PO DAILY 07/06/20 07/06/20 Unknown History trazodone 1 tab PO BEDTIME PRN 07/06/20 07/06/20 Unknown History Physical Exam Vital Signs: Vital Signs: Last Vital Signs Temp 98.2 F 07/07/20 09:12 Pulse 72 07/07/20 09:14 Resp 18 07/07/20 09:12 BP 135/85 07/07/20 09:14 Pulse Ox 97 07/07/20 09:12 Body Mass Index 41.8 Const: General: cooperative, comfortable, alert and awake Nutritional Appearance: obese Orientation/consciousness: patient oriented x3 Limitations: no limitations HENMT: Head: Yes normocephalic and Yes atraumatic Neck: Neck: Yes trachea midline, Yes supple and Yes JVD Resp: Effort & Inspection: normal respiratory effort Auscultation: clear to auscultation bilaterally Cardio: Palpation: abnormal PMI Rhythm: abnormal rhythm irregularly irregular Heart sounds: S1 normal heart sound present and S2 normal heart sound present GI: Auscultation: normal bowel sounds Skin: General skin exam: no rashes or lesions noted Neuro: General: patient oriented x3 and no focal motor deficits Extrem: General: No clubbing, No cyanosis and Yes edema Psych: Appearance: grossly normal Results Labs and Meds Result diagrams: 07/07/20 05:50 07/07/20 05:51 Lab results: Laboratory Results - last 24 hr 07/06/20 07/06/20 07/06/20 14:28 14:28 14:28 WBC RBC Hgb Hct MCV MCH MCHC RDW Plt Count MPV Immature Gran % (Auto) Neut % (Auto) Lymph % (Auto) Emanuel % (Auto) Eos % (Auto) Baso % (Auto) Lymph # (Auto) Emanuel # (Auto) Eos # (Auto) Baso # (Auto) Abs Immat Gran (auto) Absolute Neuts (auto) Absolute Nucleated RBC Nucleated RBC % (auto) PT 13.8 H INR 1.2 H APTT 33.1 D-Dimer 484 Sodium Potassium Chloride Carbon Dioxide Anion Gap BUN Creatinine Estim Creat Clear Calc Estimated GFR Random Glucose Calcium Magnesium Total Bilirubin Direct Bilirubin AST ALT Alkaline Phosphatase Troponin I High Sens 13.7 B-Natriuretic Peptide Cancelled 581 H Total Protein Albumin TSH COVID-19 (LINDA) COVID-[facility] 07/06/20 07/06/20 07/06/20 14:28 14:29 14:29 WBC 9.4 RBC 5.00 Hgb 14.2 Hct 45.2 MCV 90.4 MCH 28.4 MCHC 31.4 RDW 15.8 Plt Count 153 L MPV 11.3 Immature Gran % (Auto) 0.3 Neut % (Auto) 55.8 Lymph % (Auto) 30.8 Emanuel % (Auto) 11.6 H Eos % (Auto) 1.1 Baso % (Auto) 0.4 Lymph # (Auto) 2.9 Emanuel # (Auto) 1.1 Eos # (Auto) 0.1 Baso # (Auto) 0.0 Abs Immat Gran (auto) 0.03 Absolute Neuts (auto) 5.3 Absolute Nucleated RBC 0.000 Nucleated RBC % (auto) 0.0 PT INR APTT D-Dimer Sodium 142 Potassium 4.5 Chloride 111 H Carbon Dioxide 21 L Anion Gap 15 BUN 19 H Creatinine 0.80 Estim Creat Clear Calc 110.4 Estimated GFR > 60 Random Glucose 81 Calcium 8.7 Magnesium 2.1 Total Bilirubin 1.0 Direct Bilirubin 0.4 AST 22 ALT 17 Alkaline Phosphatase 79 Troponin I High Sens B-Natriuretic Peptide Total Protein 7.5 Albumin 4.1 TSH 0.54 COVID-19 (LINDA) Negative COVID-19 Interact Public Safety Com See Note 07/06/20 07/07/20 07/07/20 21:30 05:50 05:50 WBC 8.1 RBC 4.82 Hgb 13.9 L Hct 43.4 MCV 90.0 MCH 28.8 MCHC 32.0 RDW 15.8 Plt Count 134 L MPV 11.5 Immature Gran % (Auto) 0.2 Neut % (Auto) 65.1 Lymph % (Auto) 22.3 Emanuel % (Auto) 10.7 Eos % (Auto) 1.2 Baso % (Auto) 0.5 Lymph # (Auto) 1.8 Emanuel # (Auto) 0.9 Eos # (Auto) 0.1 Baso # (Auto) 0.0 Abs Immat Gran (auto) 0.02 Absolute Neuts (auto) 5.3 Absolute Nucleated RBC 0.000 Nucleated RBC % (auto) 0.0 PT INR APTT D-Dimer Sodium Potassium Chloride Carbon Dioxide Anion Gap BUN Creatinine Estim Creat Clear Calc Estimated GFR Random Glucose Calcium Magnesium Total Bilirubin Direct Bilirubin AST ALT Alkaline Phosphatase Troponin I High Sens 12.7 B-Natriuretic Peptide 579 H Total Protein Albumin TSH COVID-19 (LINDA) COVID-19 Interact Public Safety Com 07/07/20 05:51 WBC RBC Hgb Hct MCV MCH MCHC RDW Plt Count MPV Immature Gran % (Auto) Neut % (Auto) Lymph % (Auto) Emanuel % (Auto) Eos % (Auto) Baso % (Auto) Lymph # (Auto) Emanuel # (Auto) Eos # (Auto) Baso # (Auto) Abs Immat Gran (auto) Absolute Neuts (auto) Absolute Nucleated RBC Nucleated RBC % (auto) PT INR APTT D-Dimer Sodium 142 Potassium 3.8 Chloride 108 Carbon Dioxide 26 Anion Gap 12 BUN 18 H Creatinine 0.80 Estim Creat Clear Calc 110.4 Estimated GFR > 60 Random Glucose 96 Calcium 8.8 Magnesium Total Bilirubin Direct Bilirubin AST ALT Alkaline Phosphatase Troponin I High Sens B-Natriuretic Peptide Total Protein Albumin TSH COVID-19 (LINDA) COVID-19 Interact Public Safety Com EKG shows atrial fibrillation with PVC with left axis deviation possible inferior infarct Imaging Radiologist's impression: Impressions Chest X-Ray 07/06/20 14:23 IMPRESSION: Subtle scattered bronchovascular groundglass opacities. Finding may be related to underlying early atypical or viral pneumonia. Chest CTA 07/06/20 14:54 IMPRESSION: 1. No visible acute or chronic pulmonary embolism. 2. No thoracic aortic enlargement. No contrast aorta to assess for dissection. 3. Respiratory motion artifact. No lobar or segmental airspace consolidation. 4. Cardiomegaly. Prior median sternotomy. Peribronchial and perivascular cuffing with small bibasilar effusions. Reflux of contrast into the hepatic veins suggesting elevated right heart pressure. VTE: negative Assessment and Plan (1) Congestive heart failure: Status: Acute New onset symptoms suggestive of congestive heart failure with elevated BNP with chest x-ray finding of bilateral pleural effusion with clinical evidenc e of fluid overload. Most likely precipitated by new onset atrial fibrillation. Exact duration of atrial fibrillation not known, see below. Continue IV diuresis with Lasix 40 mg IV b.i.d.. Strict I&Os Q shift. Continue to trend BMP and BNP. Will follow echocardiogram that was done already to review the results as to noting LV systolic and diastolic function to evaluate for pulmonary hypertension. Eventually may require rhythm control approach was atrial fibrillation after adequate anticoagulation unless he does not improve and may need ANGÉLICA guided cardioversion. (2) Atrial fibrillation: Qualifiers: Atrial fibrillation type: unspecified Qualified Code(s): I48.91 - Unspecified atrial fibrillation Status: Acute Atrial fibrillation of unknown duration. Rate adequately controlled at this point time. Most likely cause for his congestive heart failure is about due to loss of AV synchrony. Eventually require rhythm control approach. Exact duration of atrial fibrillation unknown. Agree with Eliquis 5 mg b.i.d. for anticoagulation. Continue current rate control. If he has inadequate rate control or persistent heart failure despite adequate diuresis, may pursue rhythm control with ANGÉLICA guided. (3) Exertional chest pain: Status: Acute Recent onset exertional angina is suggestive of progressive myocardial ischemia probably due to graft closure. He is not having any evidence of acute coronary syndrome at this point time. This can be worked up as an outpatient. Blood pressure is optimized at current time. Continue current therapy. Continue high-intensity statin therapy. Aspirin can be withheld given that he has been started on oral anticoagulation therapy to reduce bleeding risk. Findings were discussed with him in details with help of supervisor blood donor recruiters. Will continue to follow with the patient. Thank you for allowing us to partake in his care Procedures Date of Service Date of Service: 07/07/20
--- NOTE | 2020-07-07 12:34 | HO.PM.IMPN ---
Subjective Subjective Date of Service: 07/07/20 Interval History: the patient was seen and evaluated this morning Laying in bed, feels comfortable, heart rate irregular and controlled Denies any fever, chills No reported chest pain, improvement in shortness of breath No reported other overnight events. Systemic review: No fever, chills or weakness No recurrent chest pain, episodes of palpitation Exertion and shortness of breath or coughing No abdominal pain, nausea or vomiting No urinary symptoms No any rash or wounds Physical Exam Vital Signs: Vital Signs: Last Vital Signs Temp 98.2 F 07/07/20 09:12 Pulse 72 07/07/20 09:14 Resp 18 07/07/20 09:12 BP 135/85 07/07/20 09:14 Pulse Ox 97 07/07/20 09:12 Body Mass Index 41.8 Const: Other: Constitutional : Alert, oriented, not in distress Neck : Normal inspection, Supple Cardiovascular : Irregularly irregular, S1 S2, no lower extremity edema Respiratory : Fair bilateral air entry, find basal left-sided crackles, no wheezes or rhonchi Gastrointestinal: soft, lax, Normal bowel sounds, Non tender Skin : Warm/Dry, No rash Neurological : Alert & oriented x3, No focal deficit Objective Data Current Medications Generic Name Dose Route Start Last Admin Trade Name Freq PRN Reason Stop Dose Admin Acetaminophen 650 mg 07/06/20 20:40 Acetaminophen 325 Mg Tablet PO Q6H PRN Pain, Mild (Pain Scale 1-3) Apixaban 5 mg 07/07/20 09:00 07/07/20 09:14 Apixaban 5 Mg Tablet PO 5 mg BID FABY Administration Atorvastatin Calcium 80 mg 07/06/20 21:00 07/06/20 22:07 Atorvastatin Calcium 80 Mg Tablet PO 80 mg BEDTIME FABY Administration Docusate Sodium 100 mg 07/06/20 20:40 Docusate Sodium 100 Mg Capsule PO DAILY PRN Constipation Furosemide 40 mg 07/07/20 09:00 07/07/20 09:16 Furosemide 40 Mg/4 Ml Vial IVPUSH 40 mg DAILY FABY Administration Protocol Hydrochlorothiazide 25 mg 07/07/20 09:00 07/07/20 09:15 Hydrochlorothiazide 25 Mg Tablet PO 25 mg DAILY FABY Administration Protocol Metoprolol Tartrate 50 mg 07/06/20 21:00 07/07/20 09:14 Metoprolol Tartrate 50 Mg Tablet PO 50 mg BID FABY Administration Protocol Ondansetron HCl 4 mg 07/06/20 20:40 Ondansetron Hcl 4 Mg/2 Ml Vial IVPUSH Q8H PRN Nausea and Vomiting Pharmacy Consult 1 each 07/06/20 16:34 Consult Rx Perform Med Rec MISCELLANE ONCE PRN Consult order Sodium Chloride 3 ml 07/07/20 00:00 07/07/20 07:34 0.9 % Sodium Chloride Flush 3 Ml Syringe IVFLUSH 3 ml QSHIFT FABY Administration Tamsulosin HCl 0.4 mg 07/07/20 09:00 07/07/20 09:15 Tamsulosin Hcl 0.4 Mg Capsule PO 0.4 mg DAILY FABY Administration Trazodone HCl 100 mg 07/06/20 20:40 Trazodone Hcl 100 Mg Tablet PO BEDTIME PRN Insomnia Labs CBC & Chem 7: 07/07/20 05:50 07/07/20 05:51 Assessment and Plan (1) Atrial fibrillation: Status: Acute (2) Acute dyspnea: Status: Acute (3) Chest pain: Status: Acute (4) Acute diastolic CHF (congestive heart failure): Status: Acute Assessment and Plan: This is a 70-year-old [place] Islander-speaking male with a history of CAD status post CABG, BPH, hypertension presents to the emergency department with shortness of breath and chest pain found to have new onset atrial fibrillation possible CHF New onset atrial fibrillation rate controlled Chads score 3 continue metoprolol for rate control Continue Eliquis, discussed benefits and risks with the patient who agrees to the plan Pending echocardiogram Keep on monitor for now Acute diastolic CHF exacerbation effusions on imaging BNP 581 Continue IV Lasix Intake and output Pending cardiology consult Chest pain h/o CAD s/p CABG Troponin trended negative Possibly result of AFib continue home asa, statin, BB HTN continue HCTZ, metoprolol BPH continue flomax Morbid obesity 42.9 likely contributing to dyspnea, advised to lose weight dvt ppx - eliquis code status - full code
[2020-07-07 14:49] LABS: B Type Natriuretic Peptide 473 pg/mL (<100)
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
--- NOTE | 2020-07-07 20:40 | CA_ITS ---
Transthoracic Echocardiogram Patient (Last, First, Middle): Harvinder Espinosa, Gender: Male Date of : 1950 Age: 70 Procedure Date: 07/07/2020 Procedure Type: Transthoracic Echocardiogram Location: [facility] [place] Height: 172.72 cm Weight: 127.92 kg BSA: 2.37 m2 Heart Rate: bpm BP: 154 / 93 mmHg Automation Specialist: DELMAR Mayfield MD: Radha ALVAREZ Auto Top Mechanic: Jaison Rivera MD Symptoms: new afib, chf Study Quality: Fair ECG Rhythm: Atrial Fibrillation Conclusions: - 1. Normal LV systolic function with mild LVH 2. Severely dilated left atrium 3. [id number] mitral regurgitation 4. Moderate tricuspid regurgitation 5. Mildly elevated right ventricular systolic pressure 6. No gross pericardial effusion Findings Procedure Information Contrast agent, definity, is being given per protocol without apparent complications. Left Ventricle Normal left ventricular size and systolic function. There is mildly increased left ventricular wall thickness. The visually estimated ejection fraction is between 55-60%. Diastolic function is indeterminate on the basis of available data. Right Ventricle Mildly increased right ventricular cavity size. There is normal right ventricular systolic function. Atria The left atrium is severely dilated. Interatrial shunt cannot be excluded. The right atrium is mildly dilated. Aortic Valve Normal aortic valve structure and function. There is no aortic valve stenosis. There is no aortic valve regurgitation. Mitral Valve There is mild anterior and posterior mitral leaflet thickening. There is mild to moderate mitral valve regurgitation. There is no mitral valve stenosis. Pulmonic Valve The pulmonic valve was not well visualized. Tricuspid Valve Likely normal tricuspid valve structure and function. There is moderate tricuspid valve regurgitation. Mild pulmonary hypertension is present. Great Vessels All visible segments of the aorta are normal in size. The pulmonary artery was not well visualized. Venous The inferior vena cava was not well visualized. Pericardium/Pleural There is no evidence of pericardial effusion. Prior Study Comparison No previous study in the last 5 years for comparison Measurements 2D Linear Measurements IVSd: 1.31 0.6-0.9/0.6-1.0 cm LVIDd: 5.47 3.9-5.3/4.2-5.9 cm LVIDd Index: 2.31 2.4-3.2/2.2-3.1 cm/m2 LVIDs: 3.78 2.0-3.6 cm LVPWd: 1.20 0.7-1.1 cm Ao Root: 3.30 2.1-3.5 cm LA Diam: 5.40 2.7-3.8/3.0-4.0 cm LAIDs Index: 2.28 1.5-2.3 cm/m2 LV Mass: 358.28 67-162/88-224 g LV Mass Index: 151.17 43-95/49-115 g/m2 LVOT Diam: 2.10 3.0+(-)1.3 cm 2D Systolic Function EF 4C: 48.50 >55% EF 2C: 66.40 >55% EF BiP: 58.80 >55% Mitral Valve MV Pk E: 0.98 MV Decel Time: 141.00 E'Medial: 7.74 E/E' Med: 12.60 PHT: 41.00 MVA PHT: 5.37 Decel Perkins: 6.92 Aortic Valve AoV Pk Rip: 1.25 AoV Mn Rip: 0.74 AoV VTI: 0.25 AoV Pk Grad: 6.00 Aov Mn Grad: 3.00 DARCY Cont.VTI: 2.74 LVOT LVOT Pk Rip: 0.93 LVOT Mn Rip: 0.59 LVOT VTI: 0.20 LVOT Pk Grad: 3.00 LVOT Mn Grad: 2.00 LVOT Diam: 2.10 LVOT Area: 3.46 Diastolic Function MV Pk E: 0.98 E'Medial: 7.74 E/E' Med: 12.60 Tricuspid Valve TR Pk Rip: 3.07 TR Pk Grad: 38.00 RA Press: 3.00 RVSP: 41.00 Great Vessels Aorta Ao Root-2D: 3.30 2.0-3.7 cm Ao Asc: 2.90 2.1-3.4 cm Pulmonary Valve PV Pk Rip: 0.72 Peak PV Grad: 2.00 Updated in Other Vendor System with Status of Final Jaison Rivera MD electronically signed on 07/07/2020 4:40:29 PM with status of Final
[2020-07-07] MEDS: Atorvastatin Calcium 80 MG TABLET PO (21:29)
[2020-07-08] VITALS (7 sets, daily range): BP systolic 101–136; BP diastolic 64–98; PULSE 67–86; RESP 16–20; TEMP 36.3–36.4; O2SAT 94–96; BMI 40.8
[2020-07-08 05:57] LABS: Anion Gap 15 (12-20); Blood Urea Nitrogen 20 mg/dL (9-16); Carbon Dioxide 25 mmol/L (22-29); Chloride 103 mmol/L (96-108); Creatinine Clr Calc Pharmacy 108.9; Estimated Glomerular Filt Rate > 60; Glucose Random 103 mg/dL (60-115); Potassium 3.9 mmol/L (3.3-5.1); Sodium 139 mmol/L (135-145)
[2020-07-08] MEDS: 0.9 % Sodium Chloride Flush 3 ML SYRINGE IVFLUSH ×3 (08:30→23:40)
[2020-07-08] MEDS: Furosemide 40 MG/4 ML VIAL IVPUSH ×2 (08:30→17:19)
[2020-07-08] MEDS: Tamsulosin HCL 0.4 MG CAPSULE PO (08:31)
[2020-07-08] MEDS: Metoprolol Tartrate 50 MG TABLET PO ×2 (08:31→20:21)
[2020-07-08] MEDS: hydroCHLOROthiazide 25 MG TABLET PO (08:31)
[2020-07-08] MEDS: Apixaban 5 MG TABLET PO ×2 (08:31→20:21)
--- NOTE | 2020-07-08 11:58 | MHC.CM.PN ---
IMM 07/05/20, EMR REVIEWED, PT ADMITTED W/ACUTE DIASTOLIC CHF, AFIB, DYSPNEA AND CHEST PAIN, CM MET W/PT VIA POULTRY INSEMINATOR, PT REPORTS HE LIVES WITH HIS AND IS INDEPENDENT AT HOME AND DENIES USE OF DME, PT DOES REPORT HE HAS A WEEKLY VNA AND DOES NOT RECALL THE NAME OF THE COMPANY, PT ASKS CM TO CALL WHO REPORTS THE VNA IS THROUGH [facility] AND THE NEXT VISIT WILL BE ON Friday, CM WILL FOLLOW UP WITH [facility] ON Friday TO VERIFY SERVICES DUE TO [facility] BEING CLOSED ON WEEKENDS. PT WILL BE CONTINUE ON Parental Health AFTER D/C AND PT WAS GIVEN A 30DAY SUPPLY DISCOUNT CARD AND DIRECTIONS OF WHAT TO DO IF COPAY IS TO HIGH, NUMBER CIRCLED FOR PT ON PAMPHLET. DISCHARGE PLAN: HOME W/RESUMP OF VNA, TO TRANSPORT. PCP: GLADYS MANRIQUE : DEISY TEE, PER REQUEST PLEASE SPEAK WITH DAUGHTER DAUGHTER: [phone]
--- NOTE | 2020-07-08 12:13 | PM.PNCARD ---
Subjective Subjective Date of Service: 07/08/20 Principal diagnosis: Atrial fibrillation, heart failure Interval history: Patient is feeling a lot better today. Has diuresed well. BNP is down trending. Echo shows normal LV systolic function but severely dilated left atrium. Remains in atrial fibrillation controlled ventricular response. Blood pressure is optimal. Review of Systems Review of Systems Yes all other systems are reviewed and are negative Physical Exam Vital Signs: Last Vital Signs Temp 97.6 F 07/08/20 11:58 Pulse 67 07/08/20 11:58 Resp 18 07/08/20 11:58 BP 101/69 07/08/20 11:58 Pulse Ox 95 07/08/20 11:58 Body Mass Index 40.8 Const General: cooperative, comfortable, no acute distress, alert and awake Nutritional Appearance: obese Orientation/consciousness: patient oriented x3 Limitations: no limitations Neck Neck: Yes trachea midline, Yes supple and Yes JVD Resp Effort & Inspection: normal respiratory effort Auscultation: clear to auscultation bilaterally Cardio Rhythm: abnormal rhythm irregularly irregular Heart sounds: S1 normal heart sound present and S2 normal heart sound present GI Auscultation: normal bowel sounds Skin General skin exam: no rashes or lesions noted Neuro General: patient oriented x3 and no focal motor deficits Extrem General: No clubbing, No cyanosis and Yes edema (Minimal, improving significantly) Psych Appearance: grossly normal Results Labs and Meds Result diagrams: 07/07/20 05:50 07/08/20 05:08 Lab results: Laboratory Results - last 24 hr 07/07/20 07/08/20 14:08 05:08 Sodium 139 Potassium 3.9 Chloride 103 Carbon Dioxide 25 Anion Gap 15 BUN 20 H Creatinine 0.79 Estim Creat Clear Calc 108.9 Estimated GFR > 60 Random Glucose 103 Calcium 9.0 B-Natriuretic Peptide 473 H Progress Note: A&P Assessment and plan (1) Acute diastolic CHF (congestive heart failure): Status: Acute Assessment and Plan: Heart failure which is improved significantly. Still has some mild fluid overload and central venous congestion. Continue IV Lasix for 1 more day. If by tomorrow he has good urine output and BNP is down trended significantly, can be discharged home on p.o. Lasix 40 mg. Heart failure education should be provided in Hungarian. Most likely cause for his heart failure is related to new onset atrial fibrillation. Will require ischemic workup which can be pursued as an outpatient. He follows with a learning program manager at [facility]. (2) Atrial fibrillation: Status: Acute Assessment and Plan: Atrial fibrillation, new onset. Rate is adequately controlled. May need to consider outpatient for rhythm control approach given his age. However he does have significant left atrial enlargement which could be challenging for rhythm control approach. This will be pursued as an outpatient with his learning program manager. Continue full oral anticoagulation, currently on apixaban 5 mg b.i.d.. Fall Risk Details Current Medications: Current Medications Generic Name Dose Route Start Last Admin Trade Name Freq PRN Reason Stop Dose Admin Acetaminophen 650 mg 07/06/20 20:40 Acetaminophen 325 Mg Tablet PO Q6H PRN Pain, Mild (Pain Scale 1-3) Apixaban 5 mg 07/07/20 09:00 07/08/20 08:31 Apixaban 5 Mg Tablet PO 5 mg BID FABY Administration Atorvastatin Calcium 80 mg 07/06/20 21:00 07/07/20 21:29 Atorvastatin Calcium 80 Mg Tablet PO 80 mg BEDTIME FABY Administration Docusate Sodium 100 mg 07/06/20 20:40 Docusate Sodium 100 Mg Capsule PO DAILY PRN Constipation Furosemide 40 mg 07/08/20 18:00 Furosemide 40 Mg/4 Ml Vial IVPUSH BID@0900,1800 FABY Protocol Hydrochlorothiazide 25 mg 07/07/20 09:00 07/08/20 08:31 Hydrochlorothiazide 25 Mg Tablet PO 25 mg DAILY FABY Administration Protocol Metoprolol Tartrate 50 mg 07/06/20 21:00 07/08/20 08:31 Metoprolol Tartrate 50 Mg Tablet PO 50 mg BID FABY Administration Protocol Ondansetron HCl 4 mg 07/06/20 20:40 Ondansetron Hcl 4 Mg/2 Ml Vial IVPUSH Q8H PRN Nausea and Vomiting Pharmacy Consult 1 each 07/06/20 16:34 Consult Rx Perform Med Rec MISCELLANE ONCE PRN Consult order Sodium Chloride 3 ml 07/07/20 00:00 07/08/20 08:30 0.9 % Sodium Chloride Flush 3 Ml Syringe IVFLUSH 3 ml QSHIFT FABY Administration Tamsulosin HCl 0.4 mg 07/07/20 09:00 07/08/20 08:31 Tamsulosin Hcl 0.4 Mg Capsule PO 0.4 mg DAILY FABY Administration Trazodone HCl 100 mg 07/06/20 20:40 Trazodone Hcl 100 Mg Tablet PO BEDTIME PRN Insomnia Time Spent With Patient Time: Total time spent is greater than 50% in coordination of care (as documented) at patient's floor/unit and/or counseling patient: Time with patient: 25 - 35 minutes Procedures Date of Service Date of Service: 07/08/20
--- NOTE | 2020-07-08 12:37 | HO.PM.IMPN ---
Subjective Subjective Date of Service: 07/08/20 Interval History: the patient was seen and evaluated this morning Laying in bed, feels comfortable, heart rate irregular and controlled Denies any fever, chills Making good amount of urine, swelling decreasing No reported chest pain, improvement in shortness of breath No reported other overnight events. Systemic review: No fever, chills or weakness No recurrent chest pain, episodes of palpitation Exertion and shortness of breath or coughing No abdominal pain, nausea or vomiting No urinary symptoms No any rash or wounds Physical Exam Vital Signs: Vital Signs: Last Vital Signs Temp 97.6 F 07/08/20 11:58 Pulse 67 07/08/20 11:58 Resp 18 07/08/20 11:58 BP 101/69 07/08/20 11:58 Pulse Ox 95 07/08/20 11:58 Body Mass Index 40.8 Const: Other: Constitutional : Alert, oriented, not in distress Neck : Normal inspection, Supple Cardiovascular : Irregularly irregular, S1 S2, bilateral trace lower extremity edema, elevated JVP Respiratory : Fair bilateral air entry, find basal left-sided crackles, no wheezes or rhonchi Gastrointestinal: soft, lax, Normal bowel sounds, Non tender Skin : Warm/Dry, No rash Neurological : Alert & oriented x3, No focal deficit Objective Data Current Medications Generic Name Dose Route Start Last Admin Trade Name Freq PRN Reason Stop Dose Admin Acetaminophen 650 mg 07/06/20 20:40 Acetaminophen 325 Mg Tablet PO Q6H PRN Pain, Mild (Pain Scale 1-3) Apixaban 5 mg 07/07/20 09:00 07/08/20 08:31 Apixaban 5 Mg Tablet PO 5 mg BID FABY Administration Atorvastatin Calcium 80 mg 07/06/20 21:00 07/07/20 21:29 Atorvastatin Calcium 80 Mg Tablet PO 80 mg BEDTIME FABY Administration Docusate Sodium 100 mg 07/06/20 20:40 Docusate Sodium 100 Mg Capsule PO DAILY PRN Constipation Furosemide 40 mg 07/08/20 18:00 Furosemide 40 Mg/4 Ml Vial IVPUSH BID@0900,1800 FABY Protocol Hydrochlorothiazide 25 mg 07/07/20 09:00 07/08/20 08:31 Hydrochlorothiazide 25 Mg Tablet PO 25 mg DAILY FABY Administration Protocol Metoprolol Tartrate 50 mg 07/06/20 21:00 07/08/20 08:31 Metoprolol Tartrate 50 Mg Tablet PO 50 mg BID FABY Administration Protocol Ondansetron HCl 4 mg 07/06/20 20:40 Ondansetron Hcl 4 Mg/2 Ml Vial IVPUSH Q8H PRN Nausea and Vomiting Pharmacy Consult 1 each 07/06/20 16:34 Consult Rx Perform Med Rec MISCELLANE ONCE PRN Consult order Sodium Chloride 3 ml 07/07/20 00:00 07/08/20 08:30 0.9 % Sodium Chloride Flush 3 Ml Syringe IVFLUSH 3 ml QSHIFT FABY Administration Tamsulosin HCl 0.4 mg 07/07/20 09:00 07/08/20 08:31 Tamsulosin Hcl 0.4 Mg Capsule PO 0.4 mg DAILY FABY Administration Trazodone HCl 100 mg 07/06/20 20:40 Trazodone Hcl 100 Mg Tablet PO BEDTIME PRN Insomnia Labs CBC & Chem 7: 07/07/20 05:50 07/08/20 05:08 Assessment and Plan (1) Atrial fibrillation: Status: Acute (2) Acute dyspnea: Status: Acute (3) Chest pain: Status: Acute (4) Acute diastolic CHF (congestive heart failure): Status: Acute Assessment and Plan: This is a 70-year-old Upper Sorbian-speaking male with a history of CAD status post CABG, BPH, hypertension presents to the emergency department with shortness of breath and chest pain found to have new onset atrial fibrillation possible CHF New onset atrial fibrillation rate controlled Chads score 3 continue metoprolol for rate control Continue Eliquis, discussed benefits and risks with the patient who agrees to the plan echocardiogram showing dilated LA, LVH and normal EF Keep on monitor for now Acute diastolic CHF exacerbation effusions on imaging BNP trending down Continue IV Lasix Intake and output Appreciate cardiology consult Chest pain h/o CAD s/p CABG Troponin trended negative Possibly result of AFib continue home asa, statin, BB HTN continue HCTZ, metoprolol BPH continue flomax Morbid obesity 42.9 likely contributing to dyspnea, advised to lose weight dvt ppx - eliquis code status - full code
--- NOTE | 2020-07-08 12:46 | MHC.CM.PN ---
Addendum entered by Katya Olson RN 07/08/20 12:47: DISCHARGE PLAN HOME W/ RESUMPTION OF VNA OR ADDITIONAL VNA SERVICES, TO TRANSPORT. Original Note: REFERRAL MADE TO [facility] IN ANTICIPATION OF NEED FOR ADDITIONAL VNA SERVICES, CM TO FOLLOW-UP W/[facility] Friday07/10/20.
[2020-07-08 14:28] LABS: B Type Natriuretic Peptide 244 pg/mL (<100)
[2020-07-08] MEDS: Atorvastatin Calcium 80 MG TABLET PO (20:21)
[2020-07-09] VITALS: BP 125/72; PULSE 66; RESP 16; TEMP 36.6; O2SAT 95
[2020-07-09 03:33] VITALS: BP 107/67; PULSE 72; RESP 18; O2SAT 96
[2020-07-09 05:43] LABS: Anion Gap 17 (12-20); Blood Urea Nitrogen 20 mg/dL (9-16); Calcium 9.4 mg/dL (8.4-10.2); Carbon Dioxide 27 mmol/L (22-29); Chloride 98 mmol/L (96-108); Creatinine Clr Calc Pharmacy 91.5; Estimated Glomerular Filt Rate > 60; Glucose Random 112 mg/dL (60-115); Potassium 4.1 mmol/L (3.3-5.1); Sodium 138 mmol/L (135-145)
[2020-07-09 05:59] VITALS: BMI 39.9
[2020-07-09 08:00] VITALS: BP 127/84; PULSE 65; RESP 16; TEMP 36.8; O2SAT 96
[2020-07-09 08:29] VITALS: BP 127/84; PULSE 100
[2020-07-09] MEDS: Apixaban 5 MG TABLET PO (08:29)
[2020-07-09] MEDS: Metoprolol Tartrate 50 MG TABLET PO (08:29)
[2020-07-09] MEDS: 0.9 % Sodium Chloride Flush 3 ML SYRINGE IVFLUSH (08:29)
[2020-07-09] MEDS: Tamsulosin HCL 0.4 MG CAPSULE PO (08:29)
[2020-07-09] MEDS: hydroCHLOROthiazide 25 MG TABLET PO (08:29)
[2020-07-09] MEDS: Furosemide 40 MG/4 ML VIAL IVPUSH (08:29)
--- NOTE | 2020-07-09 09:52 | PM.DS ---
DS: Providers Provider Date of Service: 07/09/20 Date of admission: 07/06/20 17:34 Primary care physician: Jeff Ny MD Consults: 07/06/20 20:40 Consult to Cardiology Routine Consulting Provider: Jaison Rivera Reason for consultation: new afib, chf Has provider been notified: No 07/07/20 19:02 Consult Respiratory Therapy Routine Reason for consultation: MARTELL HX. NONCOMPLIANT WITH CPAP DS: Diagnosis Discharge Diagnosis (1) Acute dyspnea: Status: Acute (2) Chest pain: Status: Acute (3) Acute diastolic CHF (congestive heart failure): Status: Acute (4) Exertional chest pain: Status: Acute (5) New onset atrial fibrillation: Status: Acute DS: Medications Discharge Medications Home Medications: Home Medications Medication Instructions Recorded Confirmed lancets #100 ea 04/28/20 hydrochlorothiazide 1 tab PO DAILY 07/06/20 07/06/20 metoprolol tartrate 1 tab PO BID 07/06/20 07/06/20 rosuvastatin 1 tab PO BEDTIME 07/06/20 07/06/20 tamsulosin 1 cap PO DAILY 07/06/20 07/06/20 trazodone 1 tab PO BEDTIME PRN 07/06/20 07/06/20 Previous Rx's Medication Instructions Recorded apixaban [Eliquis] 5 mg PO BID #60 tab 07/09/20 furosemide 40 mg PO QAM #30 tab 07/09/20 DS: Summary Hospital Course Hospital Course: Admission note HPI This is a 70-year-old Setswana-speaking male with history of coronary artery disease who presents to the emergency department with chest pain and shortness of breath. His history was obtained with the help of a translator and interpreterDannie Alberts so he is a vague historian. Patient reports chest pain in the center of his chest which is worse with exertion and reproducible on exam. It has been intermittent over the past 5 days. It typically lasts about 5 minutes. There is no pleuritic component. He also reports dyspnea on exertion. His shortness of breath improves when lying down. He denies cough, fever or chills. He reports palpitations but it is unclear how often this occurs. He has noticed swelling in his legs. He has a history of CAD but is unable to describe any of his medications or other medical history. HIs EKG was significant for atrial fibrillation with controlled heart rate. BNP was 581 and troponin 13.7. He does not think he has a history of atrial fibrillation. Was negative for PE, did show small bibasilar effusions. He was treated with IV Lasix and 1 dose of Eliquis. Hospital course The patient was admitted to the hospital for evaluation of shortness of breath and chest pain. He was found on EKG to have new onset atrial fibrillation with controlled rate. He was continued his home dose metoprolol and Eliquis was added after discussing the benefits and risks with the patient with treat with. An echocardiogram was done showing dilated LA, LDH and normal ejection fraction. Evaluated by Cardiology who recommended to continue the same. He was also noticed to be in acute diastolic CHF. BNP was elevated and trended down during the hospital stay as he was treated with IV Lasix with good response and good output. To be discharged on oral Lasix and to follow up with Cardiology as outpatient. No reported chest pain during the hospital stay. To be discharged home Eliquis and Lasix among his other home medications Time Spent with Patient Time attestation: Total time spent providing and/or coordinating discharge services: Discharge coordination time: Greater than 30 minutes Physical Exam Vital Signs: Vital Signs: Last Vital Signs Temp 98.3 F 07/09/20 08:00 Pulse 100 07/09/20 08:29 Resp 16 07/09/20 08:00 BP 127/84 07/09/20 08:29 Pulse Ox 96 07/09/20 08:00 Body Mass Index 39.9 Const: Other: Constitutional : Alert, oriented, not in distress Neck : Normal inspection, Supple Cardiovascular : Irregularly irregular, S1 S2, no lower extremity edema Respiratory : Fair bilateral air entry, no crackles, no wheezes or rhonchi Gastrointestinal: soft, lax, Normal bowel sounds, Non tender Skin : Warm/Dry, No rash Neurological : Alert & oriented x3, No focal deficit DS: Data Data Completed and Pending Labs on day of discharge: Laboratory Results - last 24 hr 07/08/20 07/09/20 13:23 04:57 Sodium 138 Potassium 4.1 Chloride 98 Carbon Dioxide 27 Anion Gap 17 BUN 20 H Creatinine 0.94 Estim Creat Clear Calc 91.5 Estimated GFR > 60 Random Glucose 112 Calcium 9.4 B-Natriuretic Peptide 244 H Discharge Plan Discharge Patient Disposition: Home Health Service Referrals: [facility] VISITING NURSE [Other] (Resumption of VNA services.) Jeff Ny MD [Primary Care Provider] - Discharge Medications: New Eliquis 5 mg Tablet 5 mg PO BID Qty: 60 RF: 2 furosemide 40 mg tablet 40 mg PO QAM Qty: 30 RF: 2 Continued tamsulosin 0.4 mg capsule 1 cap PO DAILY RF: 0 metoprolol tartrate 50 mg tablet 1 tab PO BID RF: 0 hydrochlorothiazide 25 mg tablet 1 tab PO DAILY RF: 0 trazodone 100 mg tablet 1 tab PO BEDTIME PRN (Reason: Insomnia) RF: 0 rosuvastatin 40 mg tablet 1 tab PO BEDTIME RF: 0 Discharge Orders: Discharge Order (Routine); Ordered 07/09/20 Ordered By: Bharathi Quintanilla Diet: advance to usual diet Activity on Discharge: As tolerated Stand Alone Forms: Patient Portal Discharge page Care Plan Goals: Read below Health Concerns: Read below Plan of Treatment: You were admitted to hospital for reported chest pain and shortness of breath. You were evaluated by EKG, heart enzymes and heart monitoring which showed irregular heart rhythm called atrial fibrillation which was evaluated by Cardiology and treated with your home dose metoprolol and addition of blood thinners of Eliquis. An echogram was showing within normal heart function. Your also noted to fluid overload treated as heart failure with IV water pills. To be discharged home on oral pills. Started Eliquis, which for bleeding Start Lasix, monitor your weight at home To follow up with Cardiology as outpatient
--- NOTE | 2020-07-09 09:56 | MHC.CM.PN ---
PT DISCHARGING HOME W/RESUMPTION OF [facility] VNA, FAMILY TO OUTPATIENT CASE MANAGER PT BETWEEN 11:00-11:30AM, FAMILY REPORTS PT IS DUE FOR VNA VISIT , CM TO FOLLOW-UP W/[facility] ON Friday.
--- NOTE | 2020-07-09 11:09 | P.PNCA_ITS ---
Subjective Subjective Date of Service: 07/09/20 Principal diagnosis: Atrial fibrillation, heart failure Interval history: Patient feeling very well. Not having any symptoms of angina. Heart rate is well controlled. Shortness of breath is much improved. Cumulative negative balance of 6400 cc. BNP is down trended to 244, greater than 50% improvement. Review of Systems Review of Systems Yes all other systems are reviewed and are negative Physical Exam Vital Signs: Last Vital Signs Temp 98.3 F 07/09/20 08:00 Pulse 100 07/09/20 08:29 Resp 16 07/09/20 08:00 BP 127/84 07/09/20 08:29 Pulse Ox 96 07/09/20 08:00 Body Mass Index 39.9 Const General: cooperative, comfortable, alert and awake Nutritional Appearance: obese Orientation/consciousness: patient oriented x3 Neck Neck: Yes trachea midline, Yes supple and Yes no JVD Resp Effort & Inspection: normal respiratory effort Auscultation: clear to auscultation bilaterally Cardio Jugular venous distension: no JVD Rhythm: abnormal rhythm irregularly irregular Heart sounds: S1 normal heart sound present and S2 normal heart sound present GI Auscultation: normal bowel sounds Skin General skin exam: no rashes or lesions noted Neuro General: patient oriented x3 and no focal motor deficits Extrem General: Yes no clubbing, cyanosis or edema Results Labs and Meds Result diagrams: 07/07/20 05:50 07/09/20 04:57 Lab results: Laboratory Results - last 24 hr 07/08/20 07/09/20 13:23 04:57 Sodium 138 Potassium 4.1 Chloride 98 Carbon Dioxide 27 Anion Gap 17 BUN 20 H Creatinine 0.94 Estim Creat Clear Calc 91.5 Estimated GFR > 60 Random Glucose 112 Calcium 9.4 B-Natriuretic Peptide 244 H Progress Note: A&P Assessment and plan (1) New onset atrial fibrillation: Status: Acute Assessment and Plan: New onset rate control atrial fibrillation. Rate is adequately control on current metoprolol therapy. Continue the same. Unknown duration of atrial fibrillation. At some point I may need to consider rhythm control approach. He will follow up with his own java tech lead at [facility]. Continue full oral anticoagulation, currently on Eliquis 5 mg b.i.d.. (2) Congestive heart failure: Status: Acute Assessment and Plan: Congestive heart failure well optimized at current time. Continue p.o. Lasix therapy. We discussed about heart failure management at home. Daily weight monitoring and avoidance of salt loading was discussed. Additional diuretic therapy if he has sudden weight gain was discussed as well. Eventually might most likely benefit from rhythm control approach. Consider sleep study as outpatient. Management of heart failure was discussed with help of staff design engineer. (3) Exertional chest pain: Status: Acute Assessment and Plan: Exertional chest pain with remote history of coronary artery bypass grafting. Will require myocardial perfusion imaging as outpatient. This will be pursued through his java tech lead's office. Continue current high-intensity statin therapy as well as metoprolol therapy. Advised to avoid sudden strenuous exertion. Patient can be discharged home today. Thank you for allowing us to partake in his care Fall Risk Details Current Medications: Current Medications Generic Name Dose Route Start Last Admin Trade Name Freq PRN Reason Stop Dose Admin Acetaminophen 650 mg 07/06/20 20:40 Acetaminophen 325 Mg Tablet PO Q6H PRN Pain, Mild (Pain Scale 1-3) Apixaban 5 mg 07/07/20 09:00 07/09/20 08:29 Apixaban 5 Mg Tablet PO 5 mg BID FABY Administration Atorvastatin Calcium 80 mg 07/06/20 21:00 07/08/20 20:21 Atorvastatin Calcium 80 Mg Tablet PO 80 mg BEDTIME FABY Administration Docusate Sodium 100 mg 07/06/20 20:40 Docusate Sodium 100 Mg Capsule PO DAILY PRN Constipation Furosemide 40 mg 07/08/20 18:00 07/09/20 08:29 Furosemide 40 Mg/4 Ml Vial IVPUSH 40 mg BID@0900,1800 FABY Administration Protocol Hydrochlorothiazide 25 mg 07/07/20 09:00 07/09/20 08:29 Hydrochlorothiazide 25 Mg Tablet PO 25 mg DAILY FABY Administration Protocol Metoprolol Tartrate 50 mg 07/06/20 21:00 07/09/20 08:29 Metoprolol Tartrate 50 Mg Tablet PO 50 mg BID FABY Administration Protocol Ondansetron HCl 4 mg 07/06/20 20:40 Ondansetron Hcl 4 Mg/2 Ml Vial IVPUSH Q8H PRN Nausea and Vomiting Pharmacy Consult 1 each 07/06/20 16:34 Consult Rx Perform Med Rec MISCELLANE ONCE PRN Consult order Sodium Chloride 3 ml 07/07/20 00:00 07/09/20 08:29 0.9 % Sodium Chloride Flush 3 Ml Syringe IVFLUSH 3 ml QSHIFT FABY Administration Tamsulosin HCl 0.4 mg 07/07/20 09:00 07/09/20 08:29 Tamsulosin Hcl 0.4 Mg Capsule PO 0.4 mg DAILY FABY Administration Trazodone HCl 100 mg 07/06/20 20:40 Trazodone Hcl 100 Mg Tablet PO BEDTIME PRN Insomnia Time Spent With Patient Time: Total time spent is greater than 50% in coordination of care (as documented) at patient's floor/unit and/or counseling patient: Time with patient: 25 - 35 minutes Procedures Date of Service Date of Service: 07/09/20
--- NOTE | 2020-07-09 11:57 | PC.NURSE ---
IV AND MONITOR REMOVED, HEM MARKER USED FOR DISCHARGE INSTRUCTIONS.
--- NOTE | 2020-07-11 16:04 | MHC.CM.PN ---
CM RECEIVED CALL FROM LIASON AT [facility] AT 4PM ON 07/11/20 REGARDING PT AND REPORTED THAT THEY CONTACTED [facility] ON 07/10/20 AND [facility] DID REQUEST THEY PROVIDE VNA SERVICES FOR PT, FAMILY IN AGREEMENT AND [facility] WILL BEGIN SERVICE FOR PT.
== END 2020-07-09 11:23 | disposition home health service (06) | DRG 293 ==
LOC: HO.ED 16:36 → HO.EDOVER 18:03 → HO.ICU 07-07 13:55
PROVIDERS: Physician Assistant Medical; Admitting Provider Student in an Organized Health Care Education/Training Program; Emergency Provider Emergency Medicine; PCP Internal Medicine; Visit Provider Student in an Organized Health Care Education/Training Program
DX: I11.0 Hypertensive heart disease with heart failure (principal); I48.91 Unspecified atrial fibrillation; I25.10 Atherosclerotic heart disease of native coronary artery without angina pectoris; Z95.1 Presence of aortocoronary bypass graft; Z91.19 Patient's noncompliance with other medical treatment and regimen; I50.9 Heart failure, unspecified; K21.9 Gastro-esophageal reflux disease without esophagitis; N40.0 Benign prostatic hyperplasia without lower urinary tract symptoms; Z20.822 Contact with and (suspected) exposure to COVID-19; Z79.899 Other long term (current) drug therapy
CPT/HCPCS: 36415; 71045; 71275; 80048; 80076; 83735; 83880; 84443; 84484; 85025; 85379; 85610; 85730; 87635; 93005; 93306; 96374; 96376; 99285; J1940; Q9957; Q9967

== ENCOUNTER → 2020-09-05 14:39 | Outpatient (BNVA) | payer MEDICARE, SELFPAY | PROVIDERS: PCP Internal Medicine; Visit Provider Urology | DX: Z13.89 Encounter for screening for other disorder (principal) | CPT/HCPCS: Q3014 ==

== ENCOUNTER 2021-01-03 10:18 | Outpatient (REF) | payer MEDICARE, SELFPAY ==
--- NOTE | ~2021-01-03 | XR_ITS ---
EXAMINATION: XR CHEST CLINICAL INFORMATION: Cough COMPARISON: Previous chest x-ray and chest CTA June 2020 TECHNIQUE: 2 views of the chest were obtained. FINDINGS: The cardiac silhouette is enlarged but stable. There are post-CABG changes. There may be pulmonary venous redistribution. There is no evidence of pulmonary edema or pneumonia. There is no pleural effusion. There are degenerative changes of the spine. XR/XR chest 2V IMPRESSION: Stable enlargement of the cardiac silhouette and pulmonary venous redistribution. No evidence of pulmonary edema or pneumonia.
== END 2021-01-03 10:19 | disposition home or self-care (01) ==
LOC: HO.XRAY 10:18
PROVIDERS: Absent Provider Internal Medicine; PCP Internal Medicine; Visit Provider Emergency Medicine
DX: R05 Cough (principal)
CPT/HCPCS: 71046

== ENCOUNTER 2021-01-30 07:40 | Outpatient (REF) | payer MEDICARE, SELFPAY ==
[2021-01-30 09:23] LABS: PSA,Total (Free>4and<10) 4.89 ng/mL (0.00-4.00)
[2021-01-31 11:11] LABS: Free Prostate Spec Ag 0.8 ng/mL; Percent Free Prostate Spec Ag 18 % (calc) (>25); Prostate Specific Ag Total 4.5 ng/mL (< OR = 4.0)
== END 2021-01-30 07:41 | disposition home or self-care (01) ==
LOC: HO.LAB 07:40
PROVIDERS: PCP Internal Medicine; Visit Provider Urology
DX: Z12.5 Encounter for screening for malignant neoplasm of prostate (principal); N40.1 Benign prostatic hyperplasia with lower urinary tract symptoms; N13.8 Other obstructive and reflux uropathy
CPT/HCPCS: 36415; 84153; 84154

== ENCOUNTER → 2021-03-12 11:01 | Outpatient (BNVA) | payer MEDICARE, SELFPAY | PROVIDERS: PCP Internal Medicine; Referring Provider Internal Medicine; Visit Provider Surgery | DX: D17.1 Benign lipomatous neoplasm of skin and subcutaneous tissue of trunk (principal) | CPT/HCPCS: 99202 ==

== ENCOUNTER → 2021-04-16 18:46 | Outpatient (REF) | payer MEDICARE, SELFPAY | LOC: HO.SL 18:46 | PROVIDERS: PCP Internal Medicine; Visit Provider Internal Medicine | DX: G47.9 Sleep disorder, unspecified (principal); R06.83 Snoring | CPT/HCPCS: 95810 ==

== ENCOUNTER → 2021-04-20 13:14 | Outpatient (BNVA) | payer MEDICARE, SELFPAY | PROVIDERS: PCP Internal Medicine; Visit Provider Urology | DX: N40.1 Benign prostatic hyperplasia with lower urinary tract symptoms (principal); R35.1 Nocturia; R97.20 Elevated prostate specific antigen [PSA] | CPT/HCPCS: Q3014 ==

== ENCOUNTER 2021-05-21 09:05 | Outpatient (REF) | payer MEDICARE, SELFPAY ==
[2021-05-21 11:51] LABS: Binax Internal Control QC Valid; Binax Now Covid-19 Ag Negative (Negative)
== END 2021-05-21 09:06 | disposition home or self-care (01) ==
LOC: HO.LAB 09:05
PROVIDERS: Visit Provider Internal Medicine
DX: Z20.822 Contact with and (suspected) exposure to COVID-19 (principal)
CPT/HCPCS: 36415; C9803

== ENCOUNTER 2021-07-03 09:50 | Day surgery (SDC) | payer MEDICARE, SELFPAY ==
--- NOTE | 2021-03-30 | ECG_ITS ---
Test Reason : preop Blood Pressure : / mmHG Vent. Rate : 066 BPM Atrial Rate : 000 BPM P-R Int : 000 ms QRS Dur : 094 ms QT Int : 410 ms P-R-T Axes : 000 -54 -16 degrees QTc Int : 429 ms Atrial fibrillation with premature ventricular or aberrantly conducted complexes Left anterior fascicular block Abnormal ECG When compared with ECG of 06-JUL-2020 14:26, Heart rate has decreased Premature ventricular complexes are now less frequent Referred By: Maribeth Bob Electronically Signed By:KAT PATRICK MD
[2021-03-30 12:21] VITALS: BMI 43.5
[2021-03-30 12:29] VITALS: BP 141/76; PULSE 76; RESP 20; O2SAT 96
--- NOTE | 2021-03-30 12:34 | P.CONAN_ITS ---
HPI - Anesthesia Eval Consult details Narrative: Pt cx'd self d/t shortness of breath 71yo M for Right Excision of Back Lipoma Optimized per blasting gang miner Shaan for afib PMFSH Active Problems Active Problems: All Active Problems (Updated 03/30/21 @ 12:29 by Coral Hadley RN) New onset atrial fibrillation (Acute) Exertional chest pain (Acute) Nocturia more than twice per night (Acute) Feeling of incomplete bladder emptying (Acute) Lipoma of back (Acute) Morbid obesity (Acute) BPH (benign prostatic hyperplasia) (Acute) Past Medical History Medical History Atrial fibrillation BPH (benign prostatic hyperplasia) CAD (coronary artery disease) Congestive heart failure COVID-19 vaccine series completed Diabetes Exertional chest pain GERD (gastroesophageal reflux disease) High cholesterol HTN (hypertension) Lipoma of back Morbid obesity Sleep apnea Unable to read or write Family History Family History Other No cardiac disease Family history of problems with anesthesia: No Surgical History Surgical History (Updated 03/30/21 @ 12:19 by Coral Hadley RN) H/O colonoscopy History of esophagogastroduodenoscopy (EGD) Hx of CABG History of Problems with Anesthesia: No Social History Social History Household Members: Spouse Housing: Apartment Do you presently have visiting nurse or other home services: Yes ([facility] EVERY 3-4 MONTHS.) Alcohol intake: never Patient Tobacco Use Status: Former Tobacco user Quit Date: teenager Tobacco use type: Cigarette Use of substances other than those prescribed or required for medical reasons: No Have you been hit, kicked, punched, or otherwise hurt by someone within the past year? If so, by whom?: No Are you DNR?: No Advance Directives: No Advance Directives Information Provided: Yes (informational brochure given) Advance Directives on File: No Recently lost weight without trying: No Eating poorly because of decreased appetite: No Nutrition Risks: No Nutritional Risk Poor oral hygiene: No (crown lower left) service: No Current occupational status: unemployed Narrative Narrative: No recent illness No CP/SOB with minimal activity Meds Allergies Allergy/AdvReac Type Severity Reaction Status Date / Time lisinopril Allergy Cough Verified 03/12/21 11:16 Home Medications Medication Instructions Recorded Confirmed Last Taken Type lancets #100 ea 04/28/20 03/12/21 Unknown History metoprolol tartrate 50 mg tablet 1 tab PO BID 07/06/20 03/30/21 Unknown History rosuvastatin 40 mg tablet 1 tab PO BEDTIME 07/06/20 03/30/21 Unknown History tamsulosin 0.4 mg capsule 1 cap PO DAILY 07/06/20 03/30/21 Unknown History trazodone 100 mg tablet 1 tab PO BEDTIME PRN 07/06/20 03/30/21 Unknown History blood sugar diagnostic (OneTouch #10 ea 03/12/21 03/12/21 Unknown History Ultra Test) losartan 100 mg tablet 100 mg PO DAILY 03/12/21 03/30/21 Unknown History metformin 500 mg tablet,extended 500 mg PO QPM 03/12/21 03/30/21 Unknown History release 24 hr omeprazole 40 mg capsule,delayed 40 mg PO BID 03/12/21 03/30/21 Unknown History release Exam Exam Date and Time: March 30, 2021 1234 Height,Weight and Vital Signs: Height 5 ft 8 in Weight 129.9 kg Last Vital Signs Pulse 76 03/30/21 12:29 Resp 20 03/30/21 12:29 BP 141/76 H 03/30/21 12:29 Pulse Ox 96 03/30/21 12:29 Pertinent Lab Results Pertinent Lab Results: Lab Results 03/30/21 03/30/21 Range/Units 13:07 13:07 WBC 7.4 (4.8-10.8) X10*3/uL RBC 4.67 (4.60-5.80) X10*6/uL Hgb 13.5 L (14.0-18.0) g/dl Hct 42.7 (42.0-52.0) % MCV 91.4 (80.0-98.0) fL MCH 28.9 (27.0-33.0) pg MCHC 31.6 (31.0-36.0) g/dl RDW 15.2 (11.0-16.0) % Plt Count 147 L (160-400) X10*3/uL MPV 11.7 (9.4-12.4) fL Absolute Nucleated RBC 0.000 (0.0-0.012) X10*3/uL Nucleated RBC % (auto) 0.0 (0.0-0.2) /100WBC Sodium 144 (135-145) mmol/L Potassium 4.5 (3.3-5.1) mmol/L Chloride 108 (96-108) mmol/L Carbon Dioxide 27 (22-29) mmol/L Anion Gap 14 (12-20) BUN 22 H (9-16) mg/dL Creatinine 0.97 (0.5-1.4) mg/dL Estim Creat Clear Calc 90.5 Estimated GFR > 60 Random Glucose 133 H (60-115) mg/dL Calcium 9.2 (8.4-10.2) mg/dL Magnesium 2.1 (1.6-2.6) mg/dL Narrative Narrative: EKG 03/2021 Vent. Rate : 066 BPM ? ? Atrial Rate : 000 BPM ?? P-R Int : 000 ms? QRS Dur : 094 ms ? ? QT Int : 410 ms ? ? ? P-R-T Axes : 000 -54 -16 degrees ?? QTc Int : 429 ms ? Atrial fibrillation with premature ventricular or aberrantly conducted complexes Left anterior fascicular block Abnormal ECG When compared with ECG of 06-JUL-2020 14:26, Heart rate has decreased Premature ventricular complexes are now less frequent Airway Mallampati Class: I TM Dist: >3cm Neck ROM: Full Loose/Missing/Broken Teeth: No (Lower right crown) Heart: irreg Lungs: clear throughout, but bases dim Assessment and Plan Assessment Anesthesia Assessment: Anesthesia Plan Discussed and PAT Visit Final Anesthetic Review Family History of Problems with Anesthesia: No History of Problems with Anesthesia: No
[2021-03-30 13:37] LABS: Hematocrit 42.7 % (42.0-52.0); Hemoglobin 13.5 g/dl (14.0-18.0); Mean Corpuscular HGB Conc 31.6 g/dl (31.0-36.0); Mean Corpuscular Hemoglobin 28.9 pg (27.0-33.0); Mean Corpuscular Volume 91.4 fL (80.0-98.0); Mean Platelet Volume 11.7 fL (9.4-12.4); Platelet Count 147 X10*3/uL (160-400); Red Blood Count 4.67 X10*6/uL (4.60-5.80); Red Cell Distribution Width 15.2 % (11.0-16.0); White Blood Count 7.4 X10*3/uL (4.8-10.8)
[2021-03-30 14:03] LABS: Anion Gap 14 (12-20); Blood Urea Nitrogen 22 mg/dL (9-16); Calcium 9.2 mg/dL (8.4-10.2); Carbon Dioxide 27 mmol/L (22-29); Chloride 108 mmol/L (96-108); Creatinine Clr Calc Pharmacy 90.5; Estimated Glomerular Filt Rate > 60; Glucose Random 133 mg/dL (60-115); Magnesium 2.1 mg/dL (1.6-2.6); Potassium 4.5 mmol/L (3.3-5.1); Sodium 144 mmol/L (135-145)
--- NOTE | 2021-05-17 12:49 | P.CONAN_ITS ---
HPI - Anesthesia Eval Consult details Narrative: 71yo M for Right Excision of Back Lipoma Optimized per instructional supervisor Shaan for afib PMFSH Active Problems Active Problems: All Active Problems (Updated 04/20/21 @ 15:02 by Nate Mendieta MD) Elevated PSA (Acute) New onset atrial fibrillation (Acute) Exertional chest pain (Acute) Nocturia more than twice per night (Acute) Feeling of incomplete bladder emptying (Acute) Lipoma of back (Acute) Morbid obesity (Acute) BPH (benign prostatic hyperplasia) (Acute) Past Medical History Medical History Atrial fibrillation BPH (benign prostatic hyperplasia) CAD (coronary artery disease) Congestive heart failure COVID-19 vaccine series completed Diabetes Exertional chest pain GERD (gastroesophageal reflux disease) High cholesterol HTN (hypertension) Lipoma of back Morbid obesity Sleep apnea Unable to read or write Family History Family History Other No cardiac disease Family history of problems with anesthesia: No Surgical History Surgical History H/O colonoscopy History of esophagogastroduodenoscopy (EGD) Hx of CABG History of Problems with Anesthesia: No Social History Social History Household Members: Spouse Housing: Apartment Do you presently have visiting nurse or other home services: Yes ([facility] EVERY 3-4 MONTHS.) Alcohol intake: never Patient Tobacco Use Status: Former Tobacco user Quit Date: teenager Tobacco use type: Cigarette service: No Current occupational status: unemployed Meds Allergies Allergy/AdvReac Type Severity Reaction Status Date / Time lisinopril Allergy Cough Verified 04/20/21 13:15 Home Medications Medication Instructions Recorded Confirmed Last Taken Type lancets #100 ea 04/28/20 03/12/21 Unknown History metoprolol tartrate 50 mg tablet 1 tab PO BID 07/06/20 03/30/21 Unknown History rosuvastatin 40 mg tablet 1 tab PO BEDTIME 07/06/20 03/30/21 Unknown History trazodone 100 mg tablet 1 tab PO BEDTIME PRN 07/06/20 03/30/21 Unknown History blood sugar diagnostic (OneTouch #10 ea 03/12/21 03/12/21 Unknown History Ultra Test) losartan 100 mg tablet 100 mg PO DAILY 03/12/21 03/30/21 Unknown History metformin 500 mg tablet,extended 500 mg PO QPM 03/12/21 03/30/21 Unknown History release 24 hr omeprazole 40 mg capsule,delayed 40 mg PO BID 03/12/21 03/30/21 Unknown History release Exam Exam Date and Time: May 17, 2021 1249 Height,Weight and Vital Signs: Height 5 ft 8 in Weight 129.9 kg Last Vital Signs Pulse 76 03/30/21 12:29 Resp 20 03/30/21 12:29 BP 141/76 H 03/30/21 12:29 Pulse Ox 96 03/30/21 12:29 Pertinent Lab Results Pertinent Lab Results: Laboratory Tests 03/30/21 03/30/21 13:07 13:07 WBC 7.4 RBC 4.67 Hgb 13.5 L Hct 42.7 MCV 91.4 MCH 28.9 MCHC 31.6 RDW 15.2 Plt Count 147 L MPV 11.7 Absolute Nucleated RBC 0.000 Nucleated RBC % (auto) 0.0 Sodium 144 Potassium 4.5 Chloride 108 Carbon Dioxide 27 Anion Gap 14 BUN 22 H Creatinine 0.97 Estim Creat Clear Calc 90.5 Estimated GFR > 60 Random Glucose 133 H Calcium 9.2 Magnesium 2.1 Narrative Narrative: EKG 03/2021 Vent. Rate : 066 BPM ? ? Atrial Rate : 000 BPM ?? P-R Int : 000 ms? QRS Dur : 094 ms ? ? QT Int : 410 ms ? ? ? P-R-T Axes : 000 -54 -16 degrees ?? QTc Int : 429 ms ? Atrial fibrillation with premature ventricular or aberrantly conducted complexes Left anterior fascicular block Abnormal ECG When compared with ECG of 06-JUL-2020 14:26, Heart rate has decreased Premature ventricular complexes are now less frequent ECHO 06/2020 Conclusions: -? 1. Normal LV systolic function with mild LVH? 2. Severely dilated left atrium? 3. [id number] mitral regurgitation ? 4. Moderate tricuspid regurgitation? 5. Mildly elevated right ventricular systolic pressure ? 6. No gross pericardial effusion ?? Assessment and Plan Assessment Anesthesia Assessment: Chart Reviewed Final Anesthetic Review Family History of Problems with Anesthesia: No History of Problems with Anesthesia: No
--- NOTE | 2021-06-29 09:38 | P.CONAN_ITS ---
Documented by User: Maribeth Bob NP 06/29/21 09:39 HPI - Anesthesia Eval Consult details Narrative: 71yo M for Right Excision of Back Lipoma Optimized per tractor mechanic apprentice Shaan for afib PMFSH Active Problems Active Problems: All Active Problems (Updated 04/20/21 @ 15:02 by Nate Mendieta MD) Elevated PSA (Acute) New onset atrial fibrillation (Acute) Exertional chest pain (Acute) Nocturia more than twice per night (Acute) Feeling of incomplete bladder emptying (Acute) Lipoma of back (Acute) Morbid obesity (Acute) BPH (benign prostatic hyperplasia) (Acute) Past Medical History Medical History Atrial fibrillation BPH (benign prostatic hyperplasia) CAD (coronary artery disease) Congestive heart failure COVID-19 vaccine series completed Diabetes Exertional chest pain GERD (gastroesophageal reflux disease) High cholesterol HTN (hypertension) Lipoma of back Morbid obesity Sleep apnea Unable to read or write Family History Family History Other No cardiac disease Family history of problems with anesthesia: No Surgical History Surgical History H/O colonoscopy History of esophagogastroduodenoscopy (EGD) Hx of CABG History of Problems with Anesthesia: No Social History Social History Household Members: Spouse Housing: Apartment Do you presently have visiting nurse or other home services: Yes ([facility] EVERY 3-4 MONTHS.) Alcohol intake: never Patient Tobacco Use Status: Former Tobacco user Quit Date: teenager Tobacco use type: Cigarette Smoked in Last 30 Days: No Use of substances other than those prescribed or required for medical reasons: No Have you been hit, kicked, punched, or otherwise hurt by someone within the past year? If so, by whom?: No Are you DNR?: No Advance Directives: No Advance Directives Information Provided: Yes (informational brochure given) Advance Directives on File: No Recently lost weight without trying: No Eating poorly because of decreased appetite: No Nutrition Risks: No Nutritional Risk Poor oral hygiene: No (crown lower left) service: No Current occupational status: unemployed Meds Allergies Allergy/AdvReac Type Severity Reaction Status Date / Time lisinopril Allergy Cough Verified 07/03/21 10:27 Home Medications Medication Instructions Recorded Confirmed Last Taken Type lancets #100 ea 04/28/20 03/12/21 Unknown History metoprolol tartrate 50 mg tablet 1 tab PO BID 07/06/20 03/30/21 Unknown History rosuvastatin 40 mg tablet 1 tab PO BEDTIME 07/06/20 03/30/21 Unknown History trazodone 100 mg tablet 1 tab PO BEDTIME PRN 07/06/20 03/30/21 Unknown History blood sugar diagnostic (OneTouch #10 ea 03/12/21 03/12/21 Unknown History Ultra Test) losartan 100 mg tablet 100 mg PO DAILY 03/12/21 03/30/21 Unknown History metformin 500 mg tablet,extended 500 mg PO QPM 03/12/21 07/03/21 06/30/21 History release 24 hr omeprazole 40 mg capsule,delayed 40 mg PO BID 03/12/21 03/30/21 Unknown History release Exam Exam Date and Time: June 29, 2021 0938 Height,Weight and Vital Signs: Height 5 ft 8 in Weight 129.9 kg Last Vital Signs Pulse 76 03/30/21 12:29 Resp 20 03/30/21 12:29 BP 141/76 H 03/30/21 12:29 Pulse Ox 96 03/30/21 12:29 Pertinent Lab Results Pertinent Lab Results: Laboratory Tests 03/30/21 03/30/21 13:07 13:07 WBC 7.4 RBC 4.67 Hgb 13.5 L Hct 42.7 MCV 91.4 MCH 28.9 MCHC 31.6 RDW 15.2 Plt Count 147 L MPV 11.7 Absolute Nucleated RBC 0.000 Nucleated RBC % (auto) 0.0 Sodium 144 Potassium 4.5 Chloride 108 Carbon Dioxide 27 Anion Gap 14 BUN 22 H Creatinine 0.97 Estim Creat Clear Calc 90.5 Estimated GFR > 60 Random Glucose 133 H Calcium 9.2 Magnesium 2.1 Assessment and Plan Assessment Anesthesia Assessment: Chart Reviewed Final Anesthetic Review Family History of Problems with Anesthesia: No History of Problems with Anesthesia: No Documented by User: Alirio Torres MD 07/03/21 15:14 HPI - Anesthesia Eval Consult details Narrative: 71yo M for Right Excision of Back Lipoma CABG about 11years ago Optimized per tractor mechanic apprentice Shaan for afib, on hold . Patient did not take his beta blockers for more than 24 hours . Explained to the patient of the increased risks . Also counselled the patient the importance of taking the beta blockers . [facility] Past Medical History Medical History Atrial fibrillation BPH (benign prostatic hyperplasia) CAD (coronary artery disease) Congestive heart failure COVID-19 vaccine series completed Diabetes Exertional chest pain GERD (gastroesophageal reflux disease) High cholesterol HTN (hypertension) Lipoma of back Morbid obesity Sleep apnea Unable to read or write Family History Family History Other No cardiac disease Surgical History Surgical History H/O colonoscopy History of esophagogastroduodenoscopy (EGD) Hx of CABG Social History Social History Household Members: Spouse Housing: Apartment Do you presently have visiting nurse or other home services: Yes ([facility] EVERY 3-4 MONTHS.) Alcohol intake: never Patient Tobacco Use Status: Former Tobacco user Quit Date: teenager Tobacco use type: Cigarette Smoked in Last 30 Days: No Use of substances other than those prescribed or required for medical reasons: No Have you been hit, kicked, punched, or otherwise hurt by someone within the past year? If so, by whom?: No Are you DNR?: No Advance Directives: No Advance Directives Information Provided: Yes (informational brochure given) Advance Directives on File: No Recently lost weight without trying: No Eating poorly because of decreased appetite: No Nutrition Risks: No Nutritional Risk Poor oral hygiene: No (crown lower left) service: No Current occupational status: unemployed Meds Allergies Allergy/AdvReac Type Severity Reaction Status Date / Time lisinopril Allergy Cough Verified 07/03/21 10:27 Home Medications Medication Instructions Recorded Confirmed Last Taken Type lancets #100 ea 04/28/20 03/12/21 Unknown History metoprolol tartrate 50 mg tablet 1 tab PO BID 07/06/20 03/30/21 Unknown History rosuvastatin 40 mg tablet 1 tab PO BEDTIME 07/06/20 03/30/21 Unknown History trazodone 100 mg tablet 1 tab PO BEDTIME PRN 07/06/20 03/30/21 Unknown History blood sugar diagnostic (OneTouch #10 ea 03/12/21 03/12/21 Unknown History Ultra Test) losartan 100 mg tablet 100 mg PO DAILY 03/12/21 03/30/21 Unknown History metformin 500 mg tablet,extended 500 mg PO QPM 03/12/21 07/03/21 06/30/21 History release 24 hr omeprazole 40 mg capsule,delayed 40 mg PO BID 03/12/21 03/30/21 Unknown History release Exam Airway Mallampati Class: III TM Dist: >3cm Neck ROM: Full Loose/Missing/Broken Teeth: Yes (Crowns , missing ) Heart: irregular Lungs: distant breath sounds Assessment and Plan Assessment Anesthesia Assessment: Anesthesia Plan Discussed Final Anesthetic Review NPO: Yes ASA Class: III Final Preanesthetic Review: Meds/Allgs Chart Reviewed, Consent Obtained/Reviewed and Anes Risks/Benef Reviewed Patient Risk: High Procedure Risk: Intermediate Anesthetic Plan Anesthetic Plan: MAC: Disposition: Standard PACU
[2021-07-03] VITALS (7 sets, daily range): BP systolic 109–168; BP diastolic 79–90; PULSE 54–104; RESP 14–24; TEMP 36.4–36.9; O2SAT 93–98; BMI 33.4
[2021-07-03 10:22] LABS: Glucose, Whole Blood 110 mg/dL (60-115)
[2021-07-03] MEDS: Lactated Ringers 1,000 ML 50 ML IVCONT (10:35)
--- NOTE | 2021-07-03 11:08 | MHC.SHP ---
Pre-Procedural Eval Section A Date of Service: 07/03/21 The patient is an INPATIENT: No Section B Chief Complaint: Lipoma of Back Details of Present Illness: has mass on back with increasing size and discomfort Relevant Family History (Specify if Yes): No Relevant Social History: None Present Medications: see Short Stay Collaborative assessment Medical History: Significant History (obesity, BPH, afib) Allergies: Allergies Allergy/AdvReac Type Severity Reaction Status Date / Time lisinopril Allergy Cough Verified 07/03/21 10:27 Review of Systems Sugical H&P ROS: Negative: Constitution, Cardiovascular, Respiratory, Neurological, Psychiatric, Hem-Onc, Allergic/Immunologic, Gastrointestinal, Genitourinary, Musculoskeletal, Integumentary, Endocrine and Eyes/Ears/Nose/Throat Exam Surgical H&P Exam: Normal: HEENT, Normal: Heart, Normal: Lungs, Normal: Extremities, Normal: Abdomen, Normal: Skin and Normal: Neurological Exam Comment: vague mass on back to the right of midline Plan Diagnosis/Plan: Unchanged I have reviewed the history and physical and performed a pertinent physical examination on my patient. No changes have occurred unless specified.
--- NOTE | 2021-07-03 12:02 | W.PM.OPN ---
Operative Note Operative Note Date of Service: 07/03/21 Narrative: Preop diagnosis: Lipoma, back Postop diagnosis: Lipoma, partly some muscular, on the back, about 4.5 cm in widest diameter Procedure: Excision of submuscular lipoma from the back Surgeon: Dwight Paulino MD [employer] assistant manager: ANTONIO Sahu The patient is a 71-year-old male with a vague, lipomatous mass on the back a little to the right of the midline. He says that this has been increasing in size and has been bothering him he wanted this removed. He understood the technique of excision which I told him will be done under anesthesia in view of the apparent deep location and vague margins of the lipoma. He understood the risks, benefits, and alternatives. He has had stopped his Eliquis 2 days prior to the procedure . He was brought to the operating room and placed in left lateral decubitus position under monitored anesthesia care. The lipomatous mass was just to the right of the midline in the mid back area. This area was prepped and draped. I infiltrated the planned line of incision with lidocaine 1%. I made a transverse incision in the skin overlying the lipoma using blade 15. This was carried down through the full-thickness of skin and subcutaneous fat with electrocautery. It is noted the patient was morbidly obese who had to go through a thick amount of subcutaneous fat. I was eventually able to visualize the lipoma. The margins were not well defined and there was note of adherent fibrous tissue surrounding this so we had to carefully dissect with the Metzenbaum scissors as well as electrocautery to be able to this from the surrounding tissue. I also was extending through the muscle layer so we had to carefully stripped off of the muscle from the deeper layers of the lipoma to be able to separate this. Since this involved cutting some of the muscle fibers, we encountered some bleeding which had to controlled with clamping and ligation of fine vessels with Dexon 3-0 ties Eventually, I was able to completely remove lipoma posteriorly and there was note of exposed muscle fibers which had to cauterize because of some oozing. We copiously irrigated. Once hemostasis was ensured, I reapposed the deeper subcutaneous layer including what I felt was fascia with Dexon 3-0 sutures. Reapposed the rest of subcutaneous layer with Dexon 3-0 interrupted sutures. Skin closure was achieved with Dexon 4-0 subcuticular running stitch. The incision was infiltrated with Marcaine 0.5% for postop AGUSTÍN. Dressings were applied. The procedure was completed re correct. Estimated blood loss was about 50 cc. The patient was then awakened and transferred to the recovery room with stable vital signs
--- NOTE | 2021-07-03 12:08 | W.PM.OPN ---
Operative Note Operative Note Date of Service: 07/03/21 Narrative: preop diagnosis: Lipoma of the back Postop diagnosis: Lipoma of the back, partly submuscular procedure: Excision of submuscular lipoma, from the back surgeon: Dwight Paulino MD graduate research assistant: ANTONIO Sahu The patient is 71-year-old male with a vague lipomatous on the back just to the right of the midline. This seems to be deep with margins that were not well-defined. in view of increased in size and discomfort, he wanted to proceed with excision. He understood the technique of excision to be done under anesthesia in view of the deep location and vague margins. He was aware of the risks, benefits, and alternatives He was brought to the operating room. He was placed in left lateral decubitus position under monitored anesthesia care. the area of the lipoma was prepped and draped. Lidocaine 1% was used for local anesthesia. I have made incision transversely on the skin overlying the lipoma using blade 15. This was carried down through the full-thickness of the skin with electrocautery. It is noted that the patient was morbidly obese so we had to go through a very thick amount of subcutaneous fat with electrocautery. We continued dissecting until I was able to visualize at lipomas this year. The planes surrounding this were not well-defined in view of 1st adhesions. We had to carefully dissect with the Metzenbaum scissors and electrocautery to separate this from the rest of the surrounding tissue. This seemed to be submuscular posteriorly. We had to carefully divide this off of the rest of the muscle layers as well. We continued with this dissection and in view of the involvement of muscle layers, we were encountering fine vessels with bleeding. I had to clamp and ligate this small vessels with Dexon 3-0 ties for hemostasis Eventually was able to completely separate the lipoma from the rest of the underlying muscle layer. This was sent as a specimen. This measured about 4 cm across I copies irrigated. I had to cauterize some divided muscle fibers for hemostasis. Once hemostasis was ensured, I reapposed the deep subcutaneous layer including fascia with Dexon 3-0 interrupted sutures. Additional simple interrupted sutures were placed of the deep subcutaneous layer. The skin was closed with a running Dexon 4-0 subcuticular stitch. The incision was infiltrated with Marcaine 0.5% for postop analgesia. Dressings were applied and the procedure was completed. The patient tolerated procedure well. No complication noted. Initial And final counts of sponges and instruments were correct. Estimated blood loss was about 50 cc. The patient was extubated without difficulty and transferred to the recovery room with stable vital signs.
== END 2021-07-03 13:44 | disposition home or self-care (01) ==
PROVIDERS: Nurse Practitioner; PCP Internal Medicine; Visit Provider Surgery
PROC: (CPT 21933; principal; 2021-07-03 11:50)
DX: D17.1 Benign lipomatous neoplasm of skin and subcutaneous tissue of trunk (principal); I25.10 Atherosclerotic heart disease of native coronary artery without angina pectoris; I11.0 Hypertensive heart disease with heart failure; I50.31 Acute diastolic (congestive) heart failure; Z95.1 Presence of aortocoronary bypass graft; I48.91 Unspecified atrial fibrillation; G47.30 Sleep apnea, unspecified; E11.9 Type 2 diabetes mellitus without complications; Z79.84 Long term (current) use of oral hypoglycemic drugs; Z79.01 Long term (current) use of anticoagulants; Z79.899 Other long term (current) drug therapy; Z88.8 Allergy status to other drugs, medicaments and biological substances; Z87.891 Personal history of nicotine dependence; E66.01 Morbid (severe) obesity due to excess calories; Z68.41 Body mass index [BMI] 40.0-44.9, adult
CPT/HCPCS: 21933; 36415; 80048; 82947; 83735; 85027; 88304; 93005; J0690; J2250; J3010

== ENCOUNTER → 2021-07-16 12:38 | Outpatient (BNVA) | payer MEDICARE, SELFPAY | PROVIDERS: PCP Internal Medicine; Referring Provider Internal Medicine; Visit Provider Surgery | DX: D17.1 Benign lipomatous neoplasm of skin and subcutaneous tissue of trunk (principal) | CPT/HCPCS: 99212 ==

== ENCOUNTER → 2021-10-05 10:04 | Outpatient (REF) | payer OTHER, MEDICAID, SELFPAY ==
--- NOTE | 2021-10-05 10:18 | CA_ITS ---
Transthoracic Echocardiogram Patient (Last, First, Middle): Harvinder Espinosa, Gender: Male Date of : 1950 Age: 71 Procedure Date: 10/05/2021 Procedure Type: Transthoracic Echocardiogram Location: OP Height: 167.64 cm Weight: 127.01 kg BSA: 2.31 m2 Heart Rate: bpm BP: 140 / 80 mmHg Wastewater Project Manager: STEPHANIE Mayfield MD: Jeff Ny MD Microfiche Duplicator: Jaison Rivera MD Symptoms: I50.9 HF I.10 HTN Study Quality: Technically Difficult/contrast ECG Rhythm: Atrial Fibrillation Conclusions: - 1. Low normal LV systolic function with LVEF of 50-55% with elevated filling pressures 2. At least moderately dilated left atrium 3. [id number] mitral regurgitation 4. Moderately elevated right ventricular systolic pressure Findings Procedure Information Contrast agent, definity, is being given per protocol without apparent complications. Left Ventricle Normal left ventricular cavity size. There is mildly increased left ventricular wall thickness. The left ventricular systolic function is low normal. The visually estimated ejection fraction is between 50-55%. Elevated filling pressures. E/E prime ratio is >15, consistent with elevated filling pressures. Right Ventricle The right ventricle was not well visualized. Moderately increased right ventricular cavity size. There is normal right ventricular systolic function. Atria The left atrium is moderately dilated. Interatrial shunt cannot be excluded. The right atrium was not well visualized. Aortic Valve The aortic valve was not well visualized. There is no aortic valve stenosis. There is no aortic valve regurgitation. Mitral Valve There is mild anterior and posterior mitral leaflet thickening. There is mild mitral annular calcification. There is mild to moderate mitral valve regurgitation. There is no mitral valve stenosis. Pulmonic Valve The pulmonic valve was not well visualized. Tricuspid Valve Likely normal tricuspid valve structure and function. There is mild tricuspid valve regurgitation. Moderate pulmonary hypertension is present. Great Vessels All visible segments of the aorta are normal in size. The pulmonary artery was not well visualized. Venous The inferior vena cava is mildly dilated and collapses less than 50% with inspiration. Pericardium/Pleural The pericardium was not well visualized. Prior Study Comparison Changes noted compared to prior study dated: 07/07/2020. LV systolic function is marginally reduced. RV systolic pressure is further increased Measurements 2D Linear Measurements IVSd: 1.36 0.6-0.9/0.6-1.0 cm LVIDd: 5.39 3.9-5.3/4.2-5.9 cm LVIDd Index: 2.33 2.4-3.2/2.2-3.1 cm/m2 LVIDs: 3.67 2.0-3.6 cm LVPWd: 1.27 0.7-1.1 cm LA Diam: 5.30 2.7-3.8/3.0-4.0 cm LAIDs Index: 2.29 1.5-2.3 cm/m2 LV Mass: 373.63 67-162/88-224 g LV Mass Index: 161.74 43-95/49-115 g/m2 LVOT Diam: 2.30 3.0+(-)1.3 cm 2D Systolic Function EF 4C: 50.40 >55% EF 2C: 52.50 >55% EF BiP: 51.60 >55% Aortic Valve AoV Pk Rip: 1.40 AoV Mn Rip: 0.89 AoV VTI: 0.29 AoV Pk Grad: 8.00 Aov Mn Grad: 4.00 DARCY Cont.VTI: 3.06 LVOT LVOT Pk Rip: 0.90 LVOT Mn Rip: 0.57 LVOT VTI: 0.21 LVOT Pk Grad: 3.00 LVOT Mn Grad: 2.00 LVOT Diam: 2.30 LVOT Area: 4.15 Right Ventricle TAPSE (mm): 18.60 TVS' Rip: 8.59 Tricuspid Valve TR Pk Rip: 3.36 TR Pk Grad: 45.00 RA Press: 8.00 RVSP: 53.00 Great Vessels Aorta Sinus of Valsalva: 3.40 2.0-3.[address] Ridge: 2.86 1.7-3.4 cm Ao Asc: 3.10 2.1-3.4 cm Updated in Other Vendor System with Status of Final Jaison Rivera MD electronically signed on 10/05/2021 2:25:39 PM with status of Final
[2021-10-05 10:28] LABS: MANUAL DIFF FLAG NO
[2021-10-05 11:19] LABS: Basophils Percent Auto 0.6 % (0-2); Eosinophils Absolute Auto 0.1 X10*3/uL (0.0-0.4); Eosinophils Percent Auto 1.1 % (0-4); Hematocrit 42.9 % (42.0-52.0); Hemoglobin 13.2 g/dl (14.0-18.0); Imm Gran Abs Auto 0.03 X10*3/uL (0.00-0.03); Imm Gran Pct Auto 0.4 % (0.0-0.4); Lymphocytes Absolute Auto 2.4 X10*3/uL (1.2-4.9); Lymphocytes Percent Auto 33.1 % (20-40); Mean Corpuscular HGB Conc 30.8 g/dl (31.0-36.0); Mean Corpuscular Hemoglobin 27.8 pg (27.0-33.0); Mean Corpuscular Volume 90.3 fL (80.0-98.0); Mean Platelet Volume 11.5 fL (9.4-12.4); Monocytes Absolute Auto 0.7 X10*3/uL (0.1-1.2); Monocytes Percent Auto 9.8 % (2-11); Platelet Count 151 X10*3/uL (160-400); Red Blood Count 4.75 X10*6/uL (4.60-5.80); Red Cell Distribution Width 14.7 % (11.0-16.0); White Blood Count 7.3 X10*3/uL (4.8-10.8)
[2021-10-05 11:46] LABS: B Type Natriuretic Peptide 286 pg/mL (<100)
[2021-10-05 11:51] LABS: Alanine Aminotransferase 16 U/L (0-40); Anion Gap 11 (12-20); Aspartate Amino Transferase 18 U/L (5-37); Blood Urea Nitrogen 18 mg/dL (9-16); Calcium 9.1 mg/dL (8.4-10.2); Carbon Dioxide 26 mmol/L (22-29); Chloride 106 mmol/L (96-108); Cholesterol 126 mg/dL; Estimated Glomerular Filt Rate > 60; Glucose Random 133 mg/dL (60-115); HDL Cholesterol 40 mg/dL; LDL Cholesterol Calculated 70 mg/dl; Potassium 4.2 mmol/L (3.3-5.1); Sodium 139 mmol/L (135-145); Triglycerides 84 mg/dL
[2021-10-05 12:00] LABS: Thyroid Stimulating Hormone 0.34 uIU/mL (0.32-4.0)
== END ==
LOC: HO.CARD 10:04
PROVIDERS: Absent Provider Internal Medicine Cardiovascular Disease; PCP Internal Medicine; Visit Provider Internal Medicine
DX: R06.02 Shortness of breath (principal); I11.0 Hypertensive heart disease with heart failure; I50.9 Heart failure, unspecified
CPT/HCPCS: 36415; 80048; 80061; 83880; 84443; 84450; 84460; 85025; 93306; Q9957

== ENCOUNTER 2021-10-23 10:32 | Outpatient (REF) | payer OTHER, SELFPAY ==
[2021-10-23 12:01] LABS: Alanine Aminotransferase 16 U/L (0-40); Alkaline Phosphatase 80 U/L (39-117); Aspartate Amino Transferase 17 U/L (5-37); Bilirubin Direct 0.3 mg/dL (0.0-0.5); Bilirubin Total 0.8 mg/dL (0.0-1.0); Lipase 26 U/L (8-78); Total Protein 7.2 g/dL (6.5-8.0)
[2021-10-23 12:42] LABS: PSA,Total (Free>4and<10) 5.01 ng/mL (0.00-4.00)
[2021-10-26 15:33] LABS: Percent Free Prostate Spec Ag 20 % (calc) (>25); Prostate Specific Ag Total 4.9 ng/mL (< OR = 4.0)
[2021-10-27 13:20] LABS: Vitamin D 25-OH, D2 <4 ng/mL; Vitamin D 25-OH, D3 25 ng/mL; Vitamin D 25-OH, Total 25 ng/mL (30-100)
== END 2021-10-23 10:33 | disposition home or self-care (01) ==
LOC: HO.LAB 10:32
PROVIDERS: Absent Provider Urology; PCP Internal Medicine; Visit Provider Nurse Practitioner Family
DX: Z12.5 Encounter for screening for malignant neoplasm of prostate (principal); R10.9 Unspecified abdominal pain; N13.8 Other obstructive and reflux uropathy; N40.1 Benign prostatic hyperplasia with lower urinary tract symptoms; R97.20 Elevated prostate specific antigen [PSA]; E55.9 Vitamin D deficiency, unspecified; K21.9 Gastro-esophageal reflux disease without esophagitis; R14.0 Abdominal distension (gaseous); K59.01 Slow transit constipation
CPT/HCPCS: 36415; 80076; 82306; 83690; 84153; 84154; 99202

== ENCOUNTER 2021-10-24 08:09 | Outpatient (REF) | payer OTHER, SELFPAY | END 2021-10-24 08:10 | disposition home or self-care (01) | LOC: HO.LNP 08:09 | PROVIDERS: Visit Provider Nurse Practitioner Family | DX: K21.9 Gastro-esophageal reflux disease without esophagitis (principal) | CPT/HCPCS: 87338 ==

== ENCOUNTER → 2021-10-30 08:37 | Outpatient (BNVA) | payer OTHER, SELFPAY | PROVIDERS: PCP Internal Medicine; Visit Provider Urology | DX: R97.20 Elevated prostate specific antigen [PSA] (principal); N40.1 Benign prostatic hyperplasia with lower urinary tract symptoms; R35.1 Nocturia | CPT/HCPCS: 51798; 99212 ==

== ENCOUNTER → 2021-12-04 09:55 | Outpatient (BNVA) | payer OTHER, SELFPAY | PROVIDERS: PCP Internal Medicine; Visit Provider Nurse Practitioner Family | DX: K59.04 Chronic idiopathic constipation (principal); R14.0 Abdominal distension (gaseous); K21.9 Gastro-esophageal reflux disease without esophagitis; R79.89 Other specified abnormal findings of blood chemistry; Z79.899 Other long term (current) drug therapy | CPT/HCPCS: 99212; Q3014 ==

== ENCOUNTER 2022-06-13 09:38 | Outpatient (REF) | payer OTHER, SELFPAY ==
[2022-06-13 11:04] LABS: PSA,Total (Free>4and<10) 2.85 ng/mL (0.00-4.00)
== END 2022-06-13 09:39 | disposition home or self-care (01) ==
LOC: HO.LAB 09:38
PROVIDERS: PCP Internal Medicine; Visit Provider Urology
DX: N40.1 Benign prostatic hyperplasia with lower urinary tract symptoms (principal); N13.8 Other obstructive and reflux uropathy; R97.20 Elevated prostate specific antigen [PSA]; Z12.5 Encounter for screening for malignant neoplasm of prostate
CPT/HCPCS: 36415; 84153

== ENCOUNTER → 2022-07-05 08:01 | Outpatient (BNVA) | payer OTHER, SELFPAY | PROVIDERS: PCP Internal Medicine; Referring Provider Internal Medicine; Visit Provider Nurse Practitioner Family | DX: R97.20 Elevated prostate specific antigen [PSA] (principal); N40.1 Benign prostatic hyperplasia with lower urinary tract symptoms; N13.8 Other obstructive and reflux uropathy; K59.04 Chronic idiopathic constipation; K21.9 Gastro-esophageal reflux disease without esophagitis; R14.0 Abdominal distension (gaseous); Z79.899 Other long term (current) drug therapy | CPT/HCPCS: 99212; Q3014 ==

== ENCOUNTER 2022-10-08 11:56 | Outpatient (REF) | payer OTHER, SELFPAY ==
--- NOTE | ~2022-10-08 | XR_ITS ---
EXAMINATION: XR THORACIC SPINE XR LUMBAR SPINE CLINICAL INFORMATION: Back pain. COMPARISON: CT angiogram of the chest 07/06/2020. TECHNIQUE: 3 views of the thoracic spine, 6 views of the lumbosacral spine. FINDINGS: THORACIC SPINE: Patient is status post median sternotomy. Degenerative changes are seen throughout the spine with fusion of the anterior longitudinal ligament. No compression fractures or bony destructive lesions are seen. LUMBAR SPINE: degenerative changes are seen with preservation of disc spaces with the exception of L5-S1 where there is marked narrowing, vacuum phenomenon and large osteophytes. No significant degenerative changes are seen at facet joints. No fractures or bony destructive lesions. The visualized portions of the sacrum appear unremarkable. 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
--- NOTE | ~2022-10-08 | XR_ITS ---
EXAMINATION: XR THORACIC SPINE XR LUMBAR SPINE CLINICAL INFORMATION: Back pain. COMPARISON: CT angiogram of the chest 07/06/2020. TECHNIQUE: 3 views of the thoracic spine, 6 views of the lumbosacral spine. FINDINGS: THORACIC SPINE: Patient is status post median sternotomy. Degenerative changes are seen throughout the spine with fusion of the anterior longitudinal ligament. No compression fractures or bony destructive lesions are seen. LUMBAR SPINE: degenerative changes are seen with preservation of disc spaces with the exception of L5-S1 where there is marked narrowing, vacuum phenomenon and large osteophytes. No significant degenerative changes are seen at facet joints. No fractures or bony destructive lesions. The visualized portions of the sacrum appear unremarkable. 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
== END 2022-10-08 11:57 | disposition home or self-care (01) ==
LOC: HO.HHCX 11:56
PROVIDERS: Visit Provider Internal Medicine
DX: M54.50 Low back pain, unspecified (principal); M54.6 Pain in thoracic spine
CPT/HCPCS: 72070; 72110

== ENCOUNTER → 2022-10-22 09:12 | Outpatient (BNVA) | payer OTHER, SELFPAY | PROVIDERS: PCP Internal Medicine; Visit Provider Nurse Practitioner Family | DX: G47.33 Obstructive sleep apnea (adult) (pediatric) (principal); G47.19 Other hypersomnia; I48.91 Unspecified atrial fibrillation; I25.10 Atherosclerotic heart disease of native coronary artery without angina pectoris; I10 Essential (primary) hypertension; E66.01 Morbid (severe) obesity due to excess calories; Z68.42 Body mass index [BMI] 45.0-49.9, adult; Z55.0 Illiteracy and low-level literacy; Z95.1 Presence of aortocoronary bypass graft | CPT/HCPCS: 99202 ==

== ENCOUNTER → 2022-11-05 07:54 | Outpatient (BNVA) | payer OTHER, SELFPAY | PROVIDERS: PCP Internal Medicine; Visit Provider Nurse Practitioner Family | DX: K59.04 Chronic idiopathic constipation (principal); K21.9 Gastro-esophageal reflux disease without esophagitis; Z79.899 Other long term (current) drug therapy | CPT/HCPCS: 99212 ==

== ENCOUNTER → 2022-11-06 19:21 | Outpatient (REF) | payer OTHER, SELFPAY | LOC: HO.SL 19:21 | PROVIDERS: PCP Internal Medicine; Visit Provider Nurse Practitioner Family | DX: Z13.89 Encounter for screening for other disorder (principal) ==

== ENCOUNTER → 2022-11-06 | Outpatient (REF) | payer OTHER, SELFPAY | LOC: HO.SL | PROVIDERS: PCP Internal Medicine; Visit Provider Nurse Practitioner Family | DX: G47.33 Obstructive sleep apnea (adult) (pediatric) (principal); E66.01 Morbid (severe) obesity due to excess calories | CPT/HCPCS: 95810 ==

== ENCOUNTER → 2022-12-16 19:30 | Outpatient (REF) | payer OTHER, SELFPAY | LOC: HO.SL 19:30 | PROVIDERS: PCP Internal Medicine; Visit Provider Psychiatry & Neurology Neurology | DX: Z13.89 Encounter for screening for other disorder (principal) ==

== ENCOUNTER 2022-12-23 08:30 | Outpatient (REF) | payer OTHER, SELFPAY ==
[2022-12-24 01:51] LABS: Prostate Specific Antigen 2.33 ng/mL (<0.05-4.0)
== END 2022-12-23 08:31 | disposition home or self-care (01) ==
LOC: HO.LAB 08:30
PROVIDERS: PCP Internal Medicine; Visit Provider Urology
DX: Z12.5 Encounter for screening for malignant neoplasm of prostate (principal); R97.20 Elevated prostate specific antigen [PSA]
CPT/HCPCS: 36415; 84153

== ENCOUNTER 2022-12-31 09:37 | Outpatient (AMB) | payer OTHER, SELFPAY ==
--- NOTE | 2022-12-31 10:55 | A.OFFVIS_ITS ---
Intake Intake Visit Reasons: 6M PSA/PVR(set) Intake Note: Patient is present for Follow Up PSA/PVR Urology Med: Terazosin Antibiotic Allergy: none Blood Thinner: Eliquis Pharmacy: [facility] PVR: 0ML Allergies No Known Allergies Allergy (Verified 12/31/22 11:01) HPI HPI Comments History of Present Illness Details Harvinder is a pleasant Anguillan-speaking male. He is a patient of Dr Yoav Bazzi. He is here with the following urologic condition - testicular pain - elevated PSA Anguillan translation provided in office by qualified medical with ambulance driver PSA remains low at 2.3 Continue current medications repeat lab work in 6 months PVR 0 Nocturia x1, improved stream and emptying Lower urinary tract symptoms with elevated PSA He presents for -further evaluation of elevated PSA Current management is - combination therapy with tamsulosin capsule and fin asteride Laboratory investigations include - 09/25 4.1, 03/30 3.9, 02/28 5.1, 01/30 4.5, 10/31 4.9, 07/04 2.9, 01/01 2.3 Imaging investigations include - a transrectal ultrasound no Individualized Prostate Cancer Risk Calculator - < 5% high risk A TRUS biopsy - has not been performed Symptoms include - incomplete emptying, with mild nocturia Overall symptoms are mild Therapeutic plan will be - recheck PSA in 6 months PFSH Medical History Atrial fibrillation BPH (benign prostatic hyperplasia) CAD (coronary artery disease) Congestive heart failure COVID-19 vaccine series completed Diabetes Exertional chest pain GERD (gastroesophageal reflux disease) High cholesterol HTN (hypertension) Lipoma of back Morbid obesity Sleep apnea Unable to read or write Surgical History H/O colonoscopy History of esophagogastroduodenoscopy (EGD) Hx of CABG Status post excision of lipoma (~07/03/21) Family History Mother Cardiac disease Cancer Father Prostate cancer Cardiac disease Social History Household Members: Spouse Housing: Apartment Do you presently have visiting nurse or other home services: Yes ([facility]NA EVERY 3-4 MONTHS.) Alcohol intake: never Patient Tobacco Use Status: Former Tobacco user Quit Date: teenager Tobacco use type: Cigarette service: No Current occupational status: unemployed Review of Systems Const Denies chills and Denies fever(s) Card Reports no additional complaints and Denies syncope Resp Denies cough GI Denies abdominal pain and Denies heartburn Reports as per HPI and Denies change in libido Neuro Denies syncope Psych Denies change in libido Endo Denies change in libido Physical Exam Const General: cooperative, healthy appearing, comfortable and no acute distress Orientation/consciousness: patient oriented x3 HEENT Face and sinus: Yes normal facial exam Mouth: moist mucous membranes Neck Neck: Yes normal visual inspection, Yes full ROM and Yes trachea midline Chest Chest palpation & inspection: normal inspection of the chest Resp Effort & Inspection: normal respiratory effort, able to speak in complete sentences and no respiratory distress GI Inspection: Yes normal to inspection Back/Spine/Pelvis Cervical Spine: normal cervical lordosis Thoracic/Lumbar Spine: thoracic and lumbar spine normal to inspection Skin General skin exam: no rashes or lesions noted Neuro General: patient oriented x3, gait normal, tone normal and moves all extremities Extrem General: Yes normal to inspection and Yes capillary refill normal Office Procedures Post Void Residual Post Residual Void Post Void Residual (PVR): 0 [id number] Void Residual by ultrasound Assessment & Plan Assessment & Plan (1) Elevated PSA: Code(s): R97.20 - Elevated prostate specific antigen [PSA] (2) BPH (benign prostatic hyperplasia): Code(s): N40.0 - Benign prostatic hyperplasia without lower urinary tract symptoms Orders: Orders AMB Post Void Residual by ultrasound Today N40.0 - Benign prostatic hyperplasia without lower urinary tract symptoms Prostate Specific Antigen 6 Months R97.20 - Elevated prostate specific antigen [PSA] Patient Instructions: Imaging studies, laboratory and physical exam results were discussed and reviewed in detail. No major barriers to patient understanding were identified. An opportunity to ask questions regarding the treatment plan was provided. All questions were answered. The patient expressed understanding and agreement with the above treatment plan. The patient is aware they should contact our office by phone for worsening of their current condition or the appearance of new urologic symptoms. Compliance is encouraged with any medications and followup testing that is ordered. It is a privilege to participate in the urologic care of your patient. If you have any questions or concerns regarding treatment for the above conditions, or other urologic issues, please do not hesitate to contact me. The office telephone contact is [phone]. This note is constructed using voice recognition software. While every effort has been made to ensure accuracy equestrian trainer errors may have been included. Yours sincerely, Dr Nate Mendieta MD, [facility] - Urology Providers of Expert, Compassionate Care for the Genitourinary System Coding Level of Care Code Est Pt Level 3 (72365) Diagnoses Elevated PSA R97.20 BPH (benign prostatic hyperplasia) N40.0 CPT Codes Post Residual Void - PVR CPT Code: 93476-Siuo Void Residual by ultrasound ([id number])
== END 2022-12-31 11:24 | disposition home or self-care (01) ==
PROVIDERS: PCP Internal Medicine; Visit Provider Urology
DX: R97.20 Elevated prostate specific antigen [PSA] (principal); N40.0 Benign prostatic hyperplasia without lower urinary tract symptoms
CPT/HCPCS: 99213

== ENCOUNTER → 2022-12-31 09:37 | Outpatient (BNVA) | payer OTHER, SELFPAY | PROVIDERS: Visit Provider Urology | DX: R97.20 Elevated prostate specific antigen [PSA] (principal); N40.0 Benign prostatic hyperplasia without lower urinary tract symptoms | CPT/HCPCS: 51798; 99212 ==

== ENCOUNTER 2023-02-04 07:44 | Outpatient (REF) | payer OTHER, SELFPAY ==
[2023-02-08 21:38] LABS: Vitamin D 25-OH, D2 <4 ng/mL; Vitamin D 25-OH, D3 27 ng/mL; Vitamin D 25-OH, Total 27 ng/mL (30-100)
== END 2023-02-04 07:45 | disposition home or self-care (01) ==
LOC: HO.LAB 07:44
PROVIDERS: PCP Internal Medicine; Visit Provider Nurse Practitioner Family
DX: E55.9 Vitamin D deficiency, unspecified (principal)
CPT/HCPCS: 36415; 82306

== ENCOUNTER 2023-06-02 15:16 | Outpatient (REF) | payer OTHER, SELFPAY ==
[2023-06-02 17:58] LABS: Microalbum/Creatinine Ratio Ur 8.2 ug/mg cr (<30)
== END 2023-06-02 15:17 | disposition home or self-care (01) ==
LOC: HO.HHCL 15:16
PROVIDERS: Visit Provider Internal Medicine
DX: E11.9 Type 2 diabetes mellitus without complications (principal)
CPT/HCPCS: 82043; 82570

== ENCOUNTER 2023-06-23 07:42 | Outpatient (REF) | payer OTHER, SELFPAY ==
[2023-06-23 10:04] LABS: Prostate Specific Antigen 3.31 ng/mL (<0.05-4.0)
== END 2023-06-23 07:43 | disposition home or self-care (01) ==
LOC: HO.LAB 07:42
PROVIDERS: PCP Internal Medicine; Visit Provider Urology
DX: R97.20 Elevated prostate specific antigen [PSA] (principal); Z12.5 Encounter for screening for malignant neoplasm of prostate
CPT/HCPCS: 36415; 84153

== ENCOUNTER 2023-07-04 09:08 | Outpatient (AMB) | payer OTHER, SELFPAY ==
--- NOTE | 2023-07-04 09:30 | A.OFFVIS_ITS ---
Intake Intake Visit Reasons: 6M PSA(set) Intake Note: Patient presents today for a follow-up Meds- Finasteride, Terazosin Allergies to Antibiotic- No Known Allergies Blood Thinner- Eliquis Post Void Residual: 0ml Patient Symptoms: Patient stated he feel like he urinates very often, he thinks is the medication that cause him to go to the restroom very often. Marine Services Technician Required: No Accompanied by: Allergies No Known Allergies Allergy (Verified 07/04/23 09:49) Medication List - Last Reconciled 07/04/23 by Nate Mendieta MD apixaban (Eliquis) 5 mg PO BID blood sugar diagnostic (OneTouch Ultra Test strips) As directed cholecalciferol (vitamin D3) 50 mcg PO DAILY famotidine 40 mg PO BEDTIME finasteride 5 mg PO DAILY 90 days furosemide 40 mg PO QAM lancets As directed losartan 100 mg PO DAILY metformin ER 500 mg PO QPM metoprolol tartrate 1 tab PO BID pantoprazole 40 mg PO DAILY rosuvastatin 1 tab PO BEDTIME sennosides (Natural Senna Laxative) 8.6 mg PO BEDTIME terazosin 10 mg PO BEDTIME 90 days trazodone 1 tab PO BEDTIME PRN HPI HPI Comments History of Present Illness Details Harvinder is a pleasant Chinese-speaking male. He is a patient of Dr Yoav Bazzi. He is here with the following urologic condition - testicular pain - elevated PSA Chinese translation provided in office by qualified medical with spanish medical interpreter PSA slight rise to 3.3 Repeat in 6 months Continue current medications repeat lab work in 6 months PVR 0 Nocturia x1, improved stream and emptying Refill prostate medication Lower urinary tract symptoms with elevated PSA He presents for -further evaluation of elevated PSA Current management is - combination therapy with tamsulosin capsule and finasteride Laboratory investigations include - 09/25 4.1, 03/30 3.9, 02/28 5.1, 01/30 4 .5, 10/31 4.9, 07/04 2.9, 01/01 2.3, 07/05 3.3 Imaging investigations include - a transrectal ultrasound no Individualized Prostate Cancer Risk Calculator - < 5% high risk A TRUS biopsy - has not been performed Symptoms include - incomplete emptying, with mild nocturi a Overall symptoms are mild Therapeutic plan will be - recheck PSA in 6 months PFSH Medical History Atrial fibrillation BPH (benign prostatic hyperplasia) CAD (coronary artery disease) Congestive heart failure COVID-19 vaccine series completed Diabetes Exertional chest pain GERD (gastroesophageal reflux disease) High cholesterol HTN (hypertension) Lipoma of back Morbid obesity Sleep apnea Unable to read or write Surgical History H/O colonoscopy History of esophagogastroduodenoscopy (EGD) Hx of CABG Status post excision of lipoma (~07/03/21) Family History Mother Cardiac disease Cancer Father Prostate cancer Cardiac disease Social History Household Members: Spouse Housing: Apartment Do you presently have visiting nurse or other home services: Yes (VNA EVERY 3-4 MONTHS.) Alcohol intake: never Patient Tobacco Use Status: Former Tobacco user Quit Date: teenager Tobacco use type: Cigarette service: No Current occupational status: unemployed Review of Systems Const Denies chills and Denies fever(s) Card Reports no additional complaints and Denies syncope Resp Denies cough GI Denies abdominal pain and Denies heartburn Reports as per HPI and Denies change in libido Neuro Denies syncope Psych Denies change in libido Endo Denies change in libido Physical Exam Const General: cooperative, healthy appearing, comfortable and no acute distress Orientation/consciousness: patient oriented x3 HEENT Face and sinus: Yes normal facial exam Mouth: moist mucous membranes Neck Neck: Yes normal visual inspection, Yes full ROM and Yes trachea midline Chest Chest palpation & inspection: normal inspection of the chest Resp Effort & Inspection: normal respiratory effort, able to speak in complete sentences and no respiratory distress GI Inspection: Yes normal to inspection Back/Spine/Pelvis Cervical Spine: normal cervical lordosis Thoracic/Lumbar Spine: thoracic and lumbar spine normal to inspection Skin General skin exam: no rashes or lesions noted Neuro General: patient oriented x3, gait normal, tone normal and moves all extremities Extrem General: Yes normal to inspection and Yes capillary refill normal Office Procedures Post Void Residual Post Residual Void Post Void Residual (PVR): 0 [id number] Void Residual by ultrasound Assessment & Plan Assessment & Plan (1) Elevated PSA: Code(s): R97.20 - Elevated prostate specific antigen [PSA] (2) Nocturia more than twice per night: Code(s): R35.1 - Nocturia (3) Feeling of incomplete bladder emptying: Code(s): R39.14 - Feeling of incomplete bladder emptying (4) BPH (benign prostatic hyperplasia): Code(s): N40.0 - Benign prostatic hyperplasia without lower urinary tract symptoms Plan Six month follow-up PSA tele Orders: Orders AMB Post Void Residual by ultrasound Today N40.0 - Benign prostatic hyperplasia without lower urinary tract symptoms, R33.9 - Retention of urine, unspecified Medications: Refilled finasteride 5 mg PO DAILY 90 tabs 1RF 90 days N13.8 - Other obstructive and reflux uropathy, N40.1 - Benign prostatic hyperplasia with lower urinary tract symptoms, R33.9 - Retention of urine, unspecified Patient Instructions: Imaging studies, laboratory and physical exam results were discussed and reviewed in detail. No major barriers to patient understanding were identified. An opportunity to ask questions regarding the treatment plan was provided. All questions were answered. The patient expressed understanding and agreement with the above treatment plan. The patient is aware they should contact our office by phone for worsening of their current condition or the appearance of new urologic symptoms. Compliance is encouraged with any medications and followup testing that is ordered. It is a privilege to participate in the urologic care of your patient. If you have any questions or concerns regarding treatment for the above conditions, or other urologic issues, please do not hesitate to contact me. The office telephone contact is [phone]. This note is constructed using voice recognition software. While every effort has been made to ensure accuracy specifications writer errors may have been included. Yours sincerely, Dr Nate Mendieta MD, [facility] - Urology Providers of Expert, Compassionate Care for the Genitourinary System Coding Level of Care Code Est Pt Level 3 (33910) Diagnoses Elevated PSA R97.20 Nocturia more than twice per night R35.1 Feeling of incomplete bladder emptying R39.14 BPH (benign prostatic hyperplasia) N40.0 CPT Codes Post Residual Void - PVR CPT Code: 64622-Cfsh Void Residual by ultrasound ([id number])
== END 2023-07-04 10:17 | disposition home or self-care (01) ==
PROVIDERS: PCP Internal Medicine; Visit Provider Urology
DX: R97.20 Elevated prostate specific antigen [PSA] (principal); R35.1 Nocturia; R39.14 Feeling of incomplete bladder emptying; N40.0 Benign prostatic hyperplasia without lower urinary tract symptoms
CPT/HCPCS: 99213

== ENCOUNTER → 2023-07-04 09:08 | Outpatient (BNVA) | payer OTHER, SELFPAY | PROVIDERS: PCP Internal Medicine; Visit Provider Urology | DX: R97.20 Elevated prostate specific antigen [PSA] (principal); N40.1 Benign prostatic hyperplasia with lower urinary tract symptoms; R35.1 Nocturia; R39.14 Feeling of incomplete bladder emptying | CPT/HCPCS: 51798; 99212 ==

== ENCOUNTER 2023-08-04 07:49 | Outpatient (REF) | payer OTHER, SELFPAY ==
[2023-08-04 08:38] LABS: Estimated Average Glucose 134 mg/dL; Hemoglobin A1c % 6.3 % (<6.0)
[2023-08-04 08:52] LABS: Anion Gap 12 (12-20); Blood Urea Nitrogen 19 mg/dL (9-16); Calcium 8.9 mg/dL (8.4-10.2); Carbon Dioxide 25 mmol/L (22-29); Chloride 108 mmol/L (96-108); Estimated Glomerular Filt Rate > 60; Glucose Random 115 mg/dL (60-115); Sodium 141 mmol/L (135-145)
== END 2023-08-04 07:50 | disposition home or self-care (01) ==
LOC: HO.LAB 07:49
PROVIDERS: Nurse Practitioner Family; PCP Internal Medicine; Visit Provider Internal Medicine
DX: I10 Essential (primary) hypertension (principal); E11.9 Type 2 diabetes mellitus without complications; R97.20 Elevated prostate specific antigen [PSA]; Z12.5 Encounter for screening for malignant neoplasm of prostate
CPT/HCPCS: 36415; 80048; 83036; 84153

== ENCOUNTER 2023-10-21 11:35 | Outpatient (REF) | payer OTHER, SELFPAY ==
--- NOTE | ~2023-10-21 | XR_ITS ---
EXAMINATION: XR KNEE, RIGHT CLINICAL INFORMATION: Patient states right knee pain for 1 month; he injured his knee with a hammer working on his car. COMPARISON: None available. TECHNIQUE: 4 views of the right knee. FINDINGS: The bones are diffusely demineralized. Surgical clips in the soft tissues along the medial aspect of the leg. Small joint effusion. Moderate narrowing of the medial compartment. Tiny tricompartmental osteophytes. XR/XR knee RT 4V IMPRESSION: Moderate degenerative changes.
== END 2023-10-21 11:36 | disposition home or self-care (01) ==
LOC: HO.HHCX 11:35
PROVIDERS: Visit Provider Internal Medicine
DX: M25.561 Pain in right knee (principal)
CPT/HCPCS: 73564

== ENCOUNTER 2023-12-16 13:01 | Outpatient (AMB) | payer OTHER, SELFPAY ==
--- NOTE | 2023-12-16 13:11 | A.OFFVIS_ITS ---
Vital Signs 12/16/23 13:12 Height 5 ft 6 in Weight 275 lb 9.245 oz BMI 44.5 BP 134/76 Blood Pressure Location Lt brachial Position Sitting Pulse 75 Intake Visit Reasons: 1 year follow up Intake Note: Harvinder presents in the office as a 1 year follow up. CC: Everything is good and no concerns today. Recruiting Coordinator Required: Yes Recruiting Coordinator Name: [id number] Demetrius Allergies No Known Allergies Allergy (Verified 12/16/23 13:14) HPI HPI 1 year follow up: Details: LAST VISIT: GERD (gastroesophageal reflux disease) Continue on pantoprazole and famotidine. Discussed with patient the importance of avoiding dietary triggers and late night snacking. Eating smaller meals and more often. Staying upright for minimum 3 hours after meals discussed with patient Chronic idiopathic constipation Continue Senokot. Discussed with patient the importance of losing weight trying to exercise to help increase bowel motility. I will see patient in 1 year, sooner on as needed basis. Will discuss going for colonoscopy. Patient is agreeable to this plan and verbalizes understanding of instructions. He was given the opportunity to ask questions and all questions answered. ? Thank you for allowing me to participate in his care Plan Medications New pantoprazole take one tablet half an hour before breakfast 40 mg PO DAILY 90 tabs 3RF K21.9 - Gastro-esophageal reflux disease without esophagitis TODAY'S VISIT Patient is here today for follow-up. Was able to reach [facility] medical records to see when patient had last colonoscopy. They reported that his last colonoscopy was in 2006 and he was supposed to repeat his colonoscopy in 2017. Patient was diagnosed with AFib few years back and sees manager internet retails sales regularly. His manager internet retails sales name is Dr. Chung. Shaan is on a list for him, however patient does not remember if he is taking it or not. Will call manager internet retails sales office to get his list and see if patient can be cleared before the procedure. Patient currently is taking senna and is moving his bowels better now. Denies melena, hematochezia, unintentional weight loss or ribbon like stools. Patient denies any dyspepsia, dysphagia or odynophagia. Takes pantoprazole in the morning and famotidine at bedtime and reports that he is feeling well. Patient denies any GI concerning symptoms today. [facility] Medical History Unable to read or write Sleep apnea COVID-19 vaccine series completed Diabetes Lipoma of back Morbid obesity Exertional chest pain Congestive heart failure BPH (benign prostatic hyperplasia) CAD (coronary artery disease) Atrial fibrillation GERD (gastroesophageal reflux disease) High cholesterol HTN (hypertension) Surgical History Status post excision of lipoma (~07/03/21) History of esophagogastroduodenoscopy (EGD) H/O colonoscopy Hx of CABG Family History Mother Cardiac disease Cancer Father Prostate cancer Cardiac disease Social History Household Members: Spouse Housing: Apartment Do you presently have visiting nurse or other home services: Yes ([facility] EVERY 3-4 MONTHS.) Alcohol intake: never Patient Tobacco Use Status: Former Tobacco user Tobacco use type: Cigarette service: No Current occupational status: unemployed Review of Systems Const Denies weight gain and Denies weight loss ENT Reports no additional complaints, Denies dysphagia and Denies odynophagia Card Reports no additional complaints Resp Reports no additional complaints GI Denies abdominal pain, Denies belching, Denies melena, Denies bloating, Denies change in bowel habits, Denies dysphagia, Denies excessive flatus, Denies dyspepsia, Denies heartburn, Denies diarrhea, Denies loose stools, Denies nausea, Denies odynophagia and Denies vomiting Reports no additional complaints Musc Reports no additional complaints Neuro Reports no additional complaints Psych Reports no additional complaints Endo Reports no additional complaints Physical Exam Vital Signs: Last Vital Signs Pulse 75 12/16/23 13:12 BP 134/76 12/16/23 13:12 BMI result Body Mass Index 44.5 Const General: healthy appearing, no acute distress and well developed Nutritional Appearance: obese Orientation/consciousness: patient oriented x3 Resp Effort & Inspection: normal respiratory effort, able to speak in complete sentences, no tracheal deviation and symmetric chest movement Auscultation: clear to auscultation bilaterally Cardio Rate: regular rate GI Inspection: Yes normal to inspection, No distended and Yes obesity Palpation (GI): Soft to palpation, not firm, nontender and No hepatosplenomegaly present Auscultation: normal bowel sounds General: Yes no CVA tenderness Back/Spine/Pelvis Back: no CVA tenderness Skin General skin exam: elasticity normal, turgor normal and dry skin Neuro General: patient oriented x3 Psych Appearance: grossly normal Mental Status: mental status grossly normal Assessment & Plan Assessment & Plan (1) GERD (gastroesophageal reflux disease): Code(s): K21.9 - Gastro-esophageal reflux disease without esophagitis Qualifiers: Esophagitis presence: esophagitis presence not specified Qualified Code(s): K21.9 - Gastro-esophageal reflux disease without esophagitis (2) Chronic idiopathic constipation: Code(s): K59.04 - Chronic idiopathic constipation Plan Message sent to surgical schedulers to book patient for upper endoscopy and colonoscopy. Patient has been on pantoprazole and famotidine for quite some time will evaluate. Occasional acid reflux, however depending on what he eats. For the most part his symptoms are suppressed. Patient will be scheduled for colonoscopy as he was supposed to return for colonoscopy in 2017 according to medical records from [facility]. His last colonoscopy was in 2006 was normal. Patient denies any melena, hematochezia, unintentional weight loss or ribbon like stools. Continue senna. Increase fluid intake and activity to promote better bowel motility. Will contact cardiology office to see if we can clear him for procedure. Patient denies any cardiac or respiratory symptoms. Follow-up in the office in 2 months to discuss the prep and what to expect before during and after procedure. Patient is agreeable to this plan and verbalizes understanding of instructions. He was given the opportunity to ask questions and all questions answered. Thank you for allowing me to participate in his care Coding Level of Care Code Est Pt Level 3 (66565) Diagnoses Gastroesophageal reflux disease, unspecified whether esophagitis present K21.9 Esophagitis presence: esophagitis presence not specified Chronic idiopathic constipation K59.04 Time Spent (min) 30 Comment 20 minutes spent with patient and additional 10 minutes spent reviewing his records
[2023-12-16 13:12] VITALS: BP 134/76; PULSE 75; BMI 44.5
== END 2023-12-16 13:56 | disposition home or self-care (01) ==
PROVIDERS: PCP Internal Medicine; Visit Provider Nurse Practitioner Family
DX: K21.9 Gastro-esophageal reflux disease without esophagitis (principal); K59.04 Chronic idiopathic constipation
CPT/HCPCS: 99213

== ENCOUNTER → 2023-12-16 13:01 | Outpatient (BNVA) | payer OTHER, SELFPAY | PROVIDERS: PCP Internal Medicine; Visit Provider Nurse Practitioner Family | DX: K21.9 Gastro-esophageal reflux disease without esophagitis (principal); K59.04 Chronic idiopathic constipation | CPT/HCPCS: 99212 ==

== ENCOUNTER 2023-12-29 09:10 | Outpatient (REF) | payer OTHER, SELFPAY ==
--- NOTE | ~2023-12-29 | XR_ITS ---
EXAMINATION: XR KNEE, RIGHT CLINICAL INFORMATION: Pain. COMPARISON: Radiograph right knee 10/21/2023. TECHNIQUE: Four views of the right knee. FINDINGS: No acute fracture or dislocation. Moderate joint space narrowing of the medial and patellofemoral compartments. Mild patellar spurring. No chondrocalcinosis. No osseous erosions. No joint effusion. Redemonstration of surgical clips overlying the soft tissues of the medial and posterior compartments. Similar degree of diffuse of tissue thickening. XR/XR knee RT 4V IMPRESSION: 1. No acute fracture or dislocation. 2. 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 3. Similar degree of diffuse tissue thickening. Electronically signed by: Loyda Ferreira MD 01/22/2024 12:39 PM EDT
== END 2023-12-29 09:11 | disposition home or self-care (01) ==
LOC: HO.XRAY 09:10
PROVIDERS: PCP Internal Medicine; Visit Provider Internal Medicine
DX: M25.561 Pain in right knee (principal)
CPT/HCPCS: 73564

== ENCOUNTER 2024-02-12 15:31 | Outpatient (AMB) | payer OTHER, SELFPAY ==
--- NOTE | 2024-02-12 15:38 | A.OFFVIS_ITS ---
Intake Visit Reasons: 6m/PSA(set) Intake Note: Patient presents today for a follow-up on: nocturia, elevated psa PSA: 3.40 Urology Medications: Finasteride, Terazosin Allergies to Antibiotic- No Known Allergies Blood Thinner- Eliquis Post Void Residual: 40ml's Lab Coordinator Required: Yes Lab Coordinator Name: Halima [id number] Accompanied by: Allergies No Known Allergies Allergy (Verified 02/12/24 20:47) Medication List - Last Reconciled 02/12/24 by REBECCA Rios- apixaban (Eliquis) 5 mg PO BID blood sugar diagnostic (OneTouch Ultra Test strips) As directed cholecalciferol (vitamin D3) 50 mcg PO DAILY famotidine 40 mg PO BEDTIME finasteride 5 mg PO DAILY 90 days furosemide 40 mg PO QAM lancets As directed losartan 100 mg PO DAILY metformin ER 500 mg PO QPM metoprolol succinate ER 100 mg PO BID pantoprazole 40 mg PO DAILY rosuvastatin 1 tab PO BEDTIME sennosides (Natural Senna Laxative) 8.6 mg PO BEDTIME terazosin 10 mg PO DAILY trazodone 50 mg PO BEDTIME HPI Comments Details: Harvinder is a pleasant 74-year-old Argentine-speaking male patient of Dr Yoav Bazzi who is accompanied by his at todays office visit. He has a past medical history of sleep apnea, diabetes, morbid obesity, congestive heart failure, BPH, coronary artery disease, GERD, atrial fibrillation, hypercholesteremia, and hypertension. He presents to the office today for follow-up of his testicular pain and elevated PSA. In discussion with the patient today reports since his last office visit here approximately 8 months ag o he has had no bothersome urinary issues or concerns. He reports compliance with finasteride and terazosin as prescribed. Most recent PSAs results reviewed with the patient and his today. PSAs: 03/29 3.9, 01/30 4.9, 10/31 5.0, 07/04 2.9, 01/01 2.3, 07/05 3.3, 08/02 3.4 We discussed slight increase in PSA however PSA was supposed to be drawn closer to six-month follow-up and was drawn shortly after last appointment here with Dr. Mendieta. We discussed obtaining PSA now for further assessment evaluation as well as in 6 months. He denies urinary urgency, urinary frequency, incontinence, nocturia, hematuria, dysuria, foul smelling urine, changes to urinary stream, flank pain, fever, and or chills. He is happy with his current voiding parameters. He also has a history of testicular pain in when asked he denies having had any testicular pain since his last office visit here. Unable to obtain urine for urinalysis however PVR 40ml's. He otherwise offers no other issues or concerns at this time. [facility] Medical History Unable to read or write Sleep apnea COVID-19 vaccine series completed Diabetes Lipoma of back Morbid obesity Exertional chest pain Congestive heart failure BPH (benign prostatic hyperplasia) CAD (coronary artery disease) Atrial fibrillation GERD (gastroesophageal reflux disease) High cholesterol HTN (hypertension) Surgical History Status post excision of lipoma (~07/03/21) History of esophagogastroduodenoscopy (EGD) H/O colonoscopy Hx of CABG Family History Mother Cardiac disease Cancer Father Prostate cancer Cardiac disease Social History Household Members: Spouse Housing: Apartment Do you presently have visiting nurse or other home services: Yes ([facility] EVERY 3-4 MONTHS.) Alcohol intake: never Patient Tobacco Use Status: Former Tobacco user Tobacco use type: Cigarette service: No Current occupational status: unemployed Review of Systems Const Reports as per HPI Eyes Reports no additional complaints ENT Reports no additional complaints Card Reports as per HPI Resp Reports as per HPI GI Reports as per HPI Reports as per HPI Musc Reports as per HPI Neuro Reports no additional complaints Psych Reports no additional complaints Kadeem/Lymph Reports no additional complaints Aller/Immun Reports no additional complaints Physical Exam Const General: cooperative, healthy appearing, comfortable, no acute distress, well developed, alert and awake Nutritional Appearance: overweight Orientation/consciousness: patient oriented x3 Limitations: no limitations HEENT Head: Yes normal to inspection, Yes normocephalic and Yes atraumatic Ears: hearing grossly normal bilaterally Eyes General: appearance normal, both eyes and all related structures Neck Neck: Yes normal visual inspection and Yes trachea midline Chest Chest palpation & inspection: normal inspection of the chest Resp Effort & Inspection: normal respiratory effort and able to speak in complete sentences Cardio Rate: regular rate GI Inspection: Yes normal to inspection General: Yes no CVA tenderness Back/Spine/Pelvis Back: no CVA tenderness Skin General skin exam: no rashes or lesions noted Neuro General: patient oriented x3 Extrem General: Yes normal to inspection Psych Appearance: grossly normal and well kempt Mental Status: mental status grossly normal Speech and movement: Normal speech and movement present and Clear speech present Affect: normal affect Attitude: cooperative Thought process: Normal thought process present Thought content: Normal thought content present Insight: Fair insight present (Psych) Judgement: Fair judgement present (Psych) Office Procedures Post Void Residual Post Residual Void Post Void Residual (PVR): 40 [id number] Void Residual by ultrasound Assessment & Plan Assessment & Plan (1) Elevated PSA: Code(s): R97.20 - Elevated prostate specific antigen [PSA] Category: Medical (2) Nocturia more than twice per night: Code(s): R35.1 - Nocturia Category: Medical (3) BPH (benign prostatic hyperplasia): Code(s): N40.0 - Benign prostatic hyperplasia without lower urinary tract symptoms Category: Medical Plan Unable to obtain urine for urinalysis however PVR 40 mL. Patient currently denies any bothersome urinary issues or concerns. He reports be happy with current voiding parameters. Continue finasteride and terazosin as prescribed. Recent PSA results reviewed with the patient today; as noted above. Will obtain PSA now and in 6 months. Follow-up in 6 months with lab to be completed prior; or sooner with any issues, concerns, and or questions. Orders: Orders Prostate Specific Antigen 6 Months N40.0 - Benign prostatic hyperplasia without lower urinary tract symptoms Prostate Specific Antigen Today R97.20 - Elevated prostate specific antigen [PSA] AMB Post Void Residual by ultrasound Today R35.1 - Nocturia Patient Instructions: The patient had an opportunity to ask questions regarding the treatment plan. All questions were answered. Physical exam, labs, and imaging were discussed and reviewed in detail. As well as risks, benefits, and discussion of treatment choices. No major barriers to understanding were identified. The patient expressed understanding and agreement with the above treatment plan. The patient was made aware they should contact our office by phone for worsening of their current condition, the appearance of new symptoms, or with any questions or concerns. Compliance is encouraged with any medications and follow up testing that is ordered. It is a privilege to be allowed the opportunity to participate in? your urological care.? Again, if you have any questions or concerns If you have any questions or concerns please do not hesitate to contact me. The office is [phone]. This note is constructed using voice recognition software. While every effort has been made to ensure accuracy senior living sales counselor errors may have been included. Yours sincerely, MUKUND Rios Coding Level of Care Code Est Pt Level 3 (52051) Complex EM visit Add On G2211 Diagnoses Elevated PSA R97.20 Nocturia more than twice per night R35.1 BPH (benign prostatic hyperplasia) N40.0 CPT Codes Post Residual Void - PVR CPT Code: 81060-Tkkn Void Residual by ultrasound ([id number])
== END 2024-02-12 16:15 | disposition home or self-care (01) ==
PROVIDERS: PCP Internal Medicine; Visit Provider Nurse Practitioner Family
DX: R97.20 Elevated prostate specific antigen [PSA] (principal); R35.1 Nocturia; N40.0 Benign prostatic hyperplasia without lower urinary tract symptoms
CPT/HCPCS: 99213; G2211

== ENCOUNTER → 2024-02-12 15:31 | Outpatient (BNVA) | payer OTHER, SELFPAY | PROVIDERS: PCP Internal Medicine; Visit Provider Nurse Practitioner Family | DX: R35.1 Nocturia (principal); R97.20 Elevated prostate specific antigen [PSA]; N40.0 Benign prostatic hyperplasia without lower urinary tract symptoms | CPT/HCPCS: 51798; 99212 ==

== ENCOUNTER 2024-03-12 07:54 | Outpatient (REF) | payer OTHER, SELFPAY ==
[2024-03-12 09:20] LABS: B Type Natriuretic Peptide 204 pg/mL (<100)
[2024-03-12 09:24] LABS: Anion Gap 12 (12-20); Blood Urea Nitrogen 15 mg/dL (9-16); Calcium 9.5 mg/dL (8.4-10.2); Carbon Dioxide 23 mmol/L (22-29); Chloride 109 mmol/L (96-108); Estimated Glomerular Filt Rate > 60; Glucose Random 113 mg/dL (60-115); Potassium 4.2 mmol/L (3.3-5.1); Sodium 140 mmol/L (135-145)
== END 2024-03-12 07:55 | disposition home or self-care (01) ==
LOC: HO.LAB 07:54
PROVIDERS: PCP Internal Medicine; Visit Provider Internal Medicine Cardiovascular Disease
DX: R60.9 Edema, unspecified (principal)
CPT/HCPCS: 36415; 80048; 83880

== ENCOUNTER 2024-03-31 13:01 | Outpatient (AMB) | payer OTHER, SELFPAY ==
[2024-03-31 13:17] VITALS: BP 132/68; PULSE 66; O2SAT 96; BMI 44.8
--- NOTE | 2024-03-31 13:17 | MHC.OFFVIS ---
Vital Signs 03/31/24 13:17 Height 5 ft 6 in Weight 277 lb 12.519 oz BMI 44.8 BP 132/68 Blood Pressure Location Rt brachial Position Sitting Pulse 66 Pulse Source Pulse Oximeter Pulse Oximetry (%) 96 Oxygen Delivery Method Room Air Intake Visit Reasons: 3 month follow up Intake Note: Relevant Flags or Indicators ? Requires Maintenance And Repair Worker? Miguel Blanton presents in office today for a scheduled 3 mos FUV. CC; No recent labs, diagnostics, or med orders placed. Pt did have labs drawn per another office. Relevant GI Sx as reported per pt? None ? Hx of any recent surgeries? None Maintenance And Repair Worker Required: Yes Maintenance And Repair Worker Services: Maintenance And Repair Worker Offered & Declined Maintenance And Repair Worker Name: [id number] Information Interpreted: non-clinical & clinical Accompanied by: Spouse Allergies No Known Allergies Allergy (Verified 03/31/24 13:18) HPI HPI 3 month follow up: Details: LAST VISIT: GERD (gastroesophageal reflux disease) Chronic idiopathic constipation Plan Message sent to surgical schedulers to book patient for upper endoscopy and colonoscopy. Patient has been on pantoprazole and famotidine for quite some time will evaluate. Occasional acid reflux, however depending on what he eats. For the most part his symptoms are suppressed. Patient will be scheduled for colonoscopy as he was supposed to return for colonoscopy in 2017 according to medical records from [facility]. His last colonoscopy was in 2006 was normal. Patient denies any melena, hematochezia, unintentional weight loss or ribbon like stools. Continue senna. Increase fluid intake and activity to promote better bowel motility. Will contact cardiology office to see if we can clear him for procedure. Patient denies any cardiac or respiratory symptoms. Follow-up in the office in 2 months to discuss the prep and what to expect before during and after procedure. Patient is agreeable to this plan and verbalizes understanding of instructions. He was given the opportunity to ask questions and all questions answered. TODAY'S VISIT Patient is here today for follow-up and to discuss going for prep. Patient denies any cardiac or respiratory symptoms. Has appointment with his wrapper caser in April. Patient is scheduled for colonoscopy in June. Will have NATTY Mcbride call his office to make sure that he can get clear. Patient denies any chest pain or shortness of breath with or without exertion. Reports that he has been feeling well. Moving his bowels without any issues now that he is taking senna. Patient denies any melena, hematochezia. Currently he is on Eliquis and if cleared will need to hold Eliquis for 48 hours before procedure. History of sleep apnea. Otherwise patient is doing well no change since last visit. ? [facility] Medical History Unable to read or write Sleep apnea COVID-19 vaccine series completed Diabetes Lipoma of back Morbid obesity Exertional chest pain Congestive heart failure BPH (benign prostatic hyperplasia) CAD (coronary artery disease) Atrial fibrillation GERD (gastroesophageal reflux disease) High cholesterol HTN (hypertension) Surgical History Status post excision of lipoma (~07/03/21) History of esophagogastroduodenoscopy (EGD) H/O colonoscopy Hx of CABG Family History Mother Cardiac disease Cancer Father Prostate cancer Cardiac disease Social History Household Members: Spouse Housing: Apartment Do you presently have visiting nurse or other home services: Yes ([facility] EVERY 3-4 MONTHS.) Alcohol intake: never Patient Tobacco Use Status: Former Tobacco user Tobacco use type: Cigarette service: No Current occupational status: unemployed Review of Systems Const Denies weight gain and Denies weight loss ENT Reports no additional complaints, Denies dysphagia and Denies odynophagia Card Reports no additional complaints Resp Reports no additional complaints GI Denies abdominal pain, Denies belching, Denies melena, Denies bloating, Denies change in bowel habits, Denies dysphagia, Denies excessive flatus, Denies dyspepsia, Denies heartburn, Denies diarrhea, Denies loose stools, Denies nausea, Denies odynophagia and Denies vomiting Reports no additional complaints Musc Reports no additional complaints Neuro Reports no additional complaints Psych Reports no additional complaints Endo Reports no additional complaints Physical Exam Vital Signs: Last Vital Signs Pulse 66 03/31/24 13:17 BP 132/68 03/31/24 13:17 Pulse Ox 96 03/31/24 13:17 Oxygen Delivery Method Room Air 03/31/24 13:17 BMI result Body Mass Index 44.8 Const General: healthy appearing and no acute distress Nutritional Appearance: obese Orientation/consciousness: patient oriented x3 Resp Effort & Inspection: normal respiratory effort, able to speak in complete sentences, no tracheal deviation and symmetric chest movement Auscultation: clear to auscultation bilaterally Cardio Rate: regular rate GI Inspection: Yes normal to inspection, No distended and Yes obesity Palpation (GI): Soft to palpation, not firm, nontender and No hepatosplenomegaly present Auscultation: normal bowel sounds General: Yes no CVA tenderness Back/Spine/Pelvis Back: no CVA tenderness Skin General skin exam: elasticity normal, turgor normal and dry skin Neuro General: patient oriented x3 Psych Appearance: grossly normal Mental Status: mental status grossly normal Assessment & Plan Assessment & Plan (1) GERD (gastroesophageal reflux disease): Code(s): K21.9 - Gastro-esophageal reflux disease without esophagitis Qualifiers: Esophagitis presence: esophagitis presence not specified Qualified Code(s): K21.9 - Gastro-esophageal reflux disease without esophagitis (2) Chronic idiopathic constipation: Code(s): K59.04 - Chronic idiopathic constipation (3) Screen for colon cancer: Code(s): Z12.11 - Encounter for screening for malignant neoplasm of colon Plan What to expect before during and after procedure discussed with patient. Instructions given to patient in [place]. veterinary medicine scientist Jannie used during the whole visit. Stressed the importance of good bowel prep day before procedure as well as clear liquid diet. Both patient and were giving the instructions and agreeable to plan of care. They were given the opportunity to ask questions and all questions answered. Thank you for allowing me to participate in her care Medications: New bisacodyl (Dulcolax (bisacodyl)) take 4 tabs at noon the day before your colonoscopy 20 mg (4 x 5 mg) PO ONCE 1 day 4 tabs 0RF Z12.11 - Encounter for screening for malignant neoplasm of colon polyethylene glycol 3350 (Miralax) As directed by gastroenterology department at [facility] 238 grams PO ONCE 238 grams 0RF Z12.11 - Encounter for screening for malignant neoplasm of colon Coding Level of Care Code Est Pt Level 3 (61285) Diagnoses Gastroesophageal reflux disease, unspecified whether esophagitis present K21.9 Esophagitis presence: esophagitis presence not specified Chronic idiopathic constipation K59.04 Screen for colon cancer Z12.11 Time Spent (min) 30 Comment 20 minutes spent with patient and additional 10 minutes spent reviewing his records
== END 2024-03-31 14:07 | disposition home or self-care (01) ==
PROVIDERS: PCP Internal Medicine; Visit Provider Nurse Practitioner Family
DX: K21.9 Gastro-esophageal reflux disease without esophagitis (principal); K59.04 Chronic idiopathic constipation; Z12.11 Encounter for screening for malignant neoplasm of colon
CPT/HCPCS: 99213

== ENCOUNTER → 2024-03-31 13:01 | Outpatient (BNVA) | payer OTHER, SELFPAY | PROVIDERS: PCP Internal Medicine; Visit Provider Nurse Practitioner Family | DX: K21.9 Gastro-esophageal reflux disease without esophagitis (principal); K59.04 Chronic idiopathic constipation; Z12.11 Encounter for screening for malignant neoplasm of colon; Z55.0 Illiteracy and low-level literacy | CPT/HCPCS: 99212 ==

== ENCOUNTER 2024-06-22 07:07 | Day surgery (SDC) | payer OTHER, SELFPAY ==
--- NOTE | 2024-06-21 09:33 | HO.ANESPROP2 ---
HPI - Anesthesia Eval Consult details Narrative: 74yo M for Upper Endoscopy and Colonoscopy Cardiac optimized. Follows [facility] Cardiology for CAD s/p CABG 2006, afib (Eliquis), CHF. Per office visit note: stress test nml, ECHO stable Anesthesia Pre-Procedure Meds Is the patient on any of the following meds?: SGLT2 Inhib PMFSH Active Problems Active Problems: All Active Problems Excessive daytime sleepiness (Acute) MARTELL (obstructive sleep apnea) (Acute) Elevated PSA (Acute) Feeling of incomplete bladder emptying (Acute) Nocturia more than twice per night (Acute) Exertional chest pain (Acute) New onset atrial fibrillation (Acute) Congestive heart failure (Acute) CAD (coronary artery disease) (Acute) Lipoma of back (Acute) Morbid obesity (Acute) BPH (benign prostatic hyperplasia) (Acute) Past Medical History Medical History (Updated 06/18/24 @ 14:17 by Coral Hadley RN) Unable to read or write Sleep apnea Diabetes Lipoma of back Morbid obesity Exertional chest pain Congestive heart failure BPH (benign prostatic hyperplasia) CAD (coronary artery disease) Atrial fibrillation GERD (gastroesophageal reflux disease) High cholesterol HTN (hypertension) Family History Family History Mother Cardiac disease Cancer Father Prostate cancer Cardiac disease Family history of problems with anesthesia: No Surgical History Surgical History (Updated 06/18/24 @ 14:17 by Coral Hadley RN) Status post excision of lipoma (~07/03/21) History of esophagogastroduodenoscopy (EGD) H/O colonoscopy Hx of CABG History of Problems with Anesthesia: No Social History Social History Household Members: Spouse Housing: Apartment Do you presently have visiting nurse or other home services: Yes ([facility] EVERY 3-4 MONTHS.) Alcohol intake: never Patient Tobacco Use Status: Former Tobacco user Tobacco use type: Cigarette service: No Current occupational status: unemployed Meds Allergies Allergy/AdvReac Type Severity Reaction Status Date / Time No Known Allergies Allergy Verified 03/31/24 13:18 Home Medications ?Medication ?Instructions ?Recorded ?Confirmed ?Last Taken ?Type lancets #100 ea 04/28/20 07/04/23 Unknown History rosuvastatin 40 mg tablet 1 tab PO BEDTIME 07/06/20 06/18/24 Unknown History blood sugar diagnostic (OneTouch #10 ea 03/12/21 07/04/23 Unknown History Ultra Test strips) losartan 100 mg tablet 100 mg PO DAILY 03/12/21 06/18/24 Unknown History metoprolol succinate 100 mg 100 mg PO BID 12/16/23 06/18/24 Unknown History tablet,extended release 24 hr terazosin 10 mg capsule 10 mg PO DAILY 12/16/23 06/18/24 Unknown History trazodone 50 mg tablet 50 mg PO BEDTIME 12/16/23 06/18/24 Unknown History empagliflozin 5 mg-metformin ER 1 tab PO BID 06/18/24 06/18/24 Unknown History 1,000 mg tablet,extended release 24 hr (Synjardy XR) Exam Pertinent Lab Results Pertinent Lab Results: Laboratory Tests 10/05/21 03/12/24 10:27 08:10 WBC 7.3 Hgb 13.2 L Hct 42.9 Plt Count 151 L Sodium 140 Potassium 4.2 Chloride 109 H Carbon Dioxide 23 BUN 15 Creatinine 0.84 Assessment and Plan Assessment Anesthesia Assessment: Chart Reviewed Final Anesthetic Review Family History of Problems with Anesthesia: No History of Problems with Anesthesia: No
--- NOTE | 2024-06-22 08:43 | PC.NURSE ---
patient does not read/write but can sign name comprehends all that is verbalized with oil spot washer alert and oriented x 4. dr. augustine and dr. pulliam went over consents verbally with oil spot washer patient comprehended all questions answered and signed consents.
--- NOTE | 2024-06-22 08:44 | MHC.SHP ---
Pre-Procedural Eval Section A - 24 Hr Update-Section A only Date of Service: 06/22/24 Section B - Complete if H&P > 30 days Chief Complaint: Encounter for screening for malignant neoplasm of Details of Present Illness: GERD Relevant Family History (Specify if Yes): No Relevant Social History: None Present Medications: see Short Stay Collaborative assessment Medical History: Significant History ( Sleep apnea Diabetes Lipoma of back Morbid obesity Exertional chest pain Congestive heart failure BPH (benign prostatic hyperplasia) CAD (coronary artery disease) Atrial fibrillation GERD (gastroesophageal reflux disease) High cholesterol HTN (hypertension)) History of Previous Operations: Relevant previous surgery/procedure and date(s) (Status post excision of lipoma (~07/03/21) History of esophagogastroduodenoscopy (EGD) H/O colonoscopy Hx of CABG) Allergies: Allergies Allergy/AdvReac Type Severity Reaction Status Date / Time No Known Allergies Allergy Verified 03/31/24 13:18 Review of Systems Sugical H&P ROS: Negative: Constitution, Cardiovascular, Respiratory, Neurological, Psychiatric, Hem-Onc, Allergic/Immunologic, Gastrointestinal, Genitourinary, Musculoskeletal, Integumentary, Endocrine and Eyes/Ears/Nose/Throat Exam Surgical H&P Exam: Normal: HEENT, Normal: Heart, Normal: Lungs, Normal: Extremities, Normal: Abdomen, Normal: Skin and Normal: Neurological Plan Diagnosis/Plan: Unchanged I have reviewed the history and physical and performed a pertinent physical examination on my patient. No changes have occurred unless specified. EGD fro GERD and colonoscopy for screening Time Spent With Patient Time: Total time managing care of this patient today ____ minutes.
[2024-06-22] MEDS: Lactated Ringers 1,000 ML 100 ML IVCONT (08:46)
[2024-06-22 08:57] VITALS: BMI 44.4
[2024-06-22 08:57] LABS: Glucose, Whole Blood 105 mg/dL (60-115)
[2024-06-22 08:58] VITALS: BP 160/90; PULSE 75; RESP 18; TEMP 36.7; O2SAT 98
--- NOTE | 2024-06-22 09:33 | HO.OPN-COLON ---
Colonoscopy Operative Note Operative Note Date of Service: 06/22/24 Narrative: Operative Information Procedure Description: EGD, Colonoscopy Indication: GERD, colon screening Anesthesia: MAC FLEXIBLE TRANSORAL UPPER GASTROINTESTINAL ENDOSCOPY AND COLONOSCOPY PROCEDURE NOTE UPPER ENDOSCOPY Consent: Indications for the procedure and potential complications of bleeding, perforation, reaction to medications and missed diagnosis were discussed with the patient and informed consent was obtained. Instrument: Olympus GIF H 190 J mid size upper endoscope Monitoring: Vital signs and clinical assessment, continuous EKG monitoring, Pulse oximetry, Carbon Dioxide monitoring and blood pressure monitoring were done throughout the procedure. Procedure: The patient was placed in the left lateral decubitis position and pre-procedure medications were administered and a bite block was placed. The endoscope was inserted into the mouth and advanced under direct vision to the third part of duodenum. A careful inspection was made as the upper endoscope was withdrawn including a retroflexed examination of the proximal stomach; Findings and interventions are described below. Findings: Larynx:normal Esophagus: GE junction at 39 cm, diaphragm hiatus at 41 cm, mild esophagitis, and 2 cm sliding hiatal hernia --bx from GEJ, distal and proximal esophagus Stomach: Patchy erythema. Biopsies were obtained. Grade 2 flap valve on retroflexed examination of the cardia. Duodenum: Normal bulb and descending duodenum, bx taken Intervention: Biopsies as noted above, COLONOSCOPY Instrument: Olympus variable stiffness pediatric scope 190L Colonoscopy Monitoring: Vital signs and clinical assessment, continuous EKG monitoring, Pulse oximetry, Carbon Dioxide monitoring and blood pressure monitoring were done throughout the procedure. Colon withdrawal time was 8 minutes. Procedure: The patient was placed in the left lateral decubitis position and pre-procedure medications were administered. After a digital rectal examination of the ano-rectum, the video colonoscope was inserted into the rectum and advanced through the colon to the cecum/TI. The colonoscope was slowly withdrawn in a retrograde panoramic fashion and the colon mucosa was carefully examined including a retroflexed view of the rectum. Findings and interventions are described below. Procedure Difficulty: easy Findings: Terminal Ileum-normal Cecum:normal Right sided retroflexion- normal Ascending Colon: normal Transverse Colon -normal Descending Colon:normal Sigmoid Colon: normal Rectum: Retroflexion with small to medium internal hemorrhoids, grade I- slightly inflammed Anorectum - normal Colon preparation: [place] Bowel Preparation Scale Right colon; 2 Transverse colon: 2 Left colon; 2 (0 = Unprepared colon segment with mucosa not seen due to solid stool that cannot be cleared. 1 = Portion of mucosa of the colon segment seen, but other areas of the colon segment not well seen due to staining, residual stool and/or opaque liquid. 2 = Minor amount of residual staining, small fragments of stool and/or opaque liquid, but mucosa of colon segment seen well. 3 = Entire mucosa of colon segment seen well with no residual staining, small fragments of stool or opaque liquid) Impression and Post Procedure Diagnosis: Endoscopy Findings: gastritis esophagitis Colonoscopy Findings: internal hemorrhoids Plan: Await Pathology results Repeat Colonoscopy in 10 years if health allows or earlier if clinically indicated, otherwise this would be his last screening colonoscopy High fiber diet leaflet avoid straining at stool, epsom salts and sitz bath, anusol supps or cream GERD precautions can restart eliquis tonight Above findings were reviewed with the patient and relevant handouts were provided if indicated.
[2024-06-22 09:38] VITALS: BP 110/56; PULSE 74; RESP 18; TEMP 36.7; O2SAT 99
[2024-06-22 09:53] VITALS: BP 119/68; PULSE 60; RESP 18; TEMP 36.7; O2SAT 95
== END 2024-06-22 10:15 | disposition home or self-care (01) ==
PROVIDERS: PCP Internal Medicine; Visit Provider Internal Medicine Gastroenterology
PROC: (CPT 43239; principal; 2024-06-22 09:50)
DX: Z12.11 Encounter for screening for malignant neoplasm of colon (principal); K63.89 Other specified diseases of intestine; K64.0 First degree hemorrhoids; K29.70 Gastritis, unspecified, without bleeding; K21.00 Gastro-esophageal reflux disease with esophagitis, without bleeding; K44.9 Diaphragmatic hernia without obstruction or gangrene; E11.9 Type 2 diabetes mellitus without complications; I11.0 Hypertensive heart disease with heart failure; I50.9 Heart failure, unspecified; E78.5 Hyperlipidemia, unspecified; I48.91 Unspecified atrial fibrillation; G47.33 Obstructive sleep apnea (adult) (pediatric); E66.9 Obesity, unspecified; Z68.41 Body mass index [BMI] 40.0-44.9, adult; Z79.01 Long term (current) use of anticoagulants; Z79.899 Other long term (current) drug therapy; Z79.02 Long term (current) use of antithrombotics/antiplatelets
CPT/HCPCS: 43239; G0121; 82947; 88305; 88313; 88342; J2003; J2704

== ENCOUNTER → 2024-06-22 07:07 | Outpatient (BNV) | payer OTHER, SELFPAY | PROVIDERS: PCP Internal Medicine; Visit Provider Internal Medicine Gastroenterology | DX: Z12.11 Encounter for screening for malignant neoplasm of colon (principal); K64.0 First degree hemorrhoids; K21.00 Gastro-esophageal reflux disease with esophagitis, without bleeding; K29.70 Gastritis, unspecified, without bleeding | CPT/HCPCS: 43239; G0121 ==

== ENCOUNTER 2024-07-06 08:21 | Outpatient (AMB) | payer OTHER, SELFPAY ==
--- NOTE | 2024-07-06 08:26 | A.OFFVIS_ITS ---
Vital Signs 07/06/24 08:27 Height 5 ft 6 in Weight 281 lb 12.012 oz BMI 45.5 BP 140/78 H Blood Pressure Location Rt brachial Position Sitting Pulse 68 Pulse Source Pulse Oximeter Pulse Oximetry (%) 97 Oxygen Delivery Method Room Air Intake Visit Reasons: S/P double; Dr. Levi Intake Note: ESTABLISHED PATIENT for s/p double Chief Complaint; Pt denies any GI concerns currently. Pt is here to discuss results only. Infant And Toddler Teacher Required: Yes Infant And Toddler Teacher Services: Infant And Toddler Teacher Present Infant And Toddler Teacher Name: MUNIRA Melgar [id number] [place] Information Interpreted: clinical only Accompanied by: Significant Other Allergies No Known Allergies Allergy (Verified 07/06/24 08:26) HPI HPI S/P double; Dr. Levi: Details: LAST VISIT: GERD (gastroesophageal reflux disease) Chronic idiopathic constipation Screen for colon cancer Plan What to expect before during and after procedure discussed with patient. Instructions given to patient in Telugu. toggle press folder and feeder Jannie used during the whole visit. Stressed the importance of good bowel prep day before procedure as well as clear liquid diet. Both patient and were giving the instructions and agreeable to plan of care. They were given the opportunity to ask questions and all questions answered. ? Thank you for allowing me to participate in her care Medications New bisacodyl (Dulcolax (bisacodyl)) take 4 tabs at noon the day before your colonoscopy 20 mg (4 x 5 mg) PO ONCE 1 day 4 tabs 0RF Z12.11 polyethylene glycol 3350 (Miralax) As directed by gastroenterology department at [facility] 238 grams PO ONCE 238 grams 0RF Z12.11 ENDOSCOPY AND COLONOSCOPY Findings: Larynx:normal Esophagus: GE junction at 39 cm, diaphragm hiatus at 41 cm, mild esophagitis, and 2 cm sliding hiatal hernia --bx from GEJ, distal and proximal esophagus Stomach: Patchy erythema. Biopsies were obtained. Grade 2 flap valve on retroflexed examination of the cardia. Duodenum: Normal bulb and descending duodenum, bx taken Intervention: Biopsies as noted above, COLONOSCOPY Instrument: Olympus variable stiffness pediatric scope 190L Colonoscopy Monitoring: Vital signs and clinical assessment, continuous EKG monitoring, Pulse oximetry, Carbon Dioxide monitoring and blood pressure monitoring were done throughout the procedure. Colon withdrawal time was 8 minutes. Procedure: The patient was placed in the left lateral decubitis position and pre-procedure medications were administered. After a digital rectal examination of the ano-rectum, the video colonoscope was inserted into the rectum and advanced through the colon to the cecum/TI. The colonoscope was slowly withdrawn in a retrograde panoramic fashion and the colon mucosa was carefully examined including a retroflexed view of the rectum. Findings and interventions are described below. Procedure Difficulty: easy Findings: Terminal Ileum-normal Cecum:normal Right sided retroflexion- normal Ascending Colon: normal Transverse Colon -normal Descending Colon:normal Sigmoid Colon: normal Rectum: Retroflexion with small to medium internal hemorrhoids, grade I- slightly inflammed Anorectum - normal Colon preparation: [place] Bowel Preparation Scale Right colon; 2 Transverse colon: 2 Left colon; 2 (0 = Unprepared colon segment with mucosa not seen due to solid stool that cannot be cleared. 1 = Portion of mucosa of the colon segment seen, but other areas of the colon segment not well seen due to staining, residual stool and/or opaque liquid. 2 = Minor amount of residual staining, small fragments of stool and/or opaque liquid, but mucosa of colon segment seen well. 3 = Entire mucosa of colon segment seen well with no residual staining, small fragments of stool or opaque liquid) Impression and Post Procedure Diagnosis: Endoscopy Findings: gastritis esophagitis Colonoscopy Findings: internal hemorrhoids Plan: Await Pathology results Repeat Colonoscopy in 10 years if health allows or earlier if clinically indicated, otherwise this would be his last screening colonoscopy High fiber diet leaflet avoid straining at stool, epsom salts and sitz bath, anusol supps or cream GERD precautions can restart eliquis tonight PATHOLOGY: Diagnosis A. Duodenum, biopsy: Duodenal mucosa within normal limits. B. Stomach, biopsy: Antral-type and oxyntic mucosa with mild chronic inactive inflammation; no Helicobacter organisms seen. C. GE junction, biopsy: - Squamous epithelium within normal limits; no inflammation seen. - No glandular epithelium present. D. Esophagus, distal, biopsy: Squamous epithelium within normal limits; no infl ammation seen. E. Esophagus, proximal, biopsy: Squamous epithelium within normal limits; no inflammation seen TODAY'S VISIT Patient is here today for follow-up and to discuss upper endoscopy and colonoscopy. Patient is accompanied by his . Patient denies any ill effects from the prep, anesthesia or procedure itself. Upper endoscopy showed mild gastritis and possible esophagitis. Biopsy showed mild inactive chronic inflammation in his stomach no inflammation seen in esophagus or GE junction. Colonoscopy showed no polyps. Patient will return for colo screening if health permits in 10 years, sooner if clinically necessary. Patient denies any melena, hematochezia, unintentional weight loss or ribbon like stools. Denies any dyspepsia, dysphagia or odynophagia. Reports that pantoprazole and famotidine have been working for him. Takes pantoprazole in the morning and famotidine at bedtime. Patient is trying to avoid dietary triggers. Tries not to eat late at night. Reports to have good appetite. No diarrhea or mucus in his stool PFSH Medical History Unable to read or write Sleep apnea Diabetes Lipoma of back Morbid obesity Exertional chest pain Congestive heart failure BPH (benign prostatic hyperplasia) CAD (coronary artery disease) Atrial fibrillation GERD (gastroesophageal reflux disease) High cholesterol HTN (hypertension) Surgical History Status post excision of lipoma (~07/03/21) History of esophagogastroduodenoscopy (EGD) H/O colonoscopy Hx of CABG Family History Mother Cardiac disease Cancer Father Prostate cancer Cardiac disease Social History Household Members: Spouse Housing: Apartment Are you a primary clinical care leader to a significant other at home: No Do you presently have visiting nurse or other home services: No Alcohol intake: never Patient Tobacco Use Status: Former Tobacco user Tobacco use type: Cigarette service: No Current occupational status: unemployed Review of Systems Const Denies weight gain and Denies weight loss ENT Reports no additional complaints, Denies dysphagia and Denies odynophagia Card Reports no additional complaints Resp Reports no additional complaints GI Denies abdominal pain, Denies belching, Denies melena, Denies bloating, Denies change in bowel habits, Denies dysphagia, Denies excessive flatus, Denies dyspepsia, Denies heartburn, Denies diarrhea, Denies loose stools, Denies nausea, Denies odynophagia and Denies vomiting Reports no additional complaints Musc Reports no additional complaints Neuro Reports no additional complaints Psych Reports no additional complaints Endo Reports no additional complaints Physical Exam Vital Signs: Last Vital Signs Pulse 68 07/06/24 08:27 BP 140/78 H 07/06/24 08:27 Pulse Ox 97 07/06/24 08:27 Oxygen Delivery Method Room Air 07/06/24 08:27 BMI result Body Mass Index 45.5 Const General: healthy appearing and no acute distress Nutritional Appearance: obese Orientation/consciousness: patient oriented x3 Resp Effort & Inspection: normal respiratory effort, able to speak in complete sentences, no tracheal deviation and symmetric chest movement Auscultation: clear to auscultation bilaterally Cardio Rate: regular rate GI Inspection: Yes normal to inspection, No distended and Yes obesity Palpation (GI): Soft to palpation, not firm, nontender and No hepatosplenomegaly present Auscultation: normal bowel sounds General: Yes no CVA tenderness Back/Spine/Pelvis Back: no CVA tenderness Skin General skin exam: elasticity normal, turgor normal and dry skin Neuro General: patient oriented x3 Psych Appearance: grossly normal Mental Status: mental status grossly normal Assessment & Plan Assessment & Plan (1) GERD (gastroesophageal reflux disease): Code(s): K21.9 - Gastro-esophageal reflux disease without esophagitis Qualifiers: Esophagitis presence: esophagitis presence not specified Qualified Code(s): K21.9 - Gastro-esophageal reflux disease without esophagitis (2) Chronic idiopathic constipation: Code(s): K59.04 - Chronic idiopathic constipation (3) Status post colonoscopy: Code(s): Z98.890 - Other specified postprocedural states Plan Colonoscopy in 10 years if health allows, sooner if clinically necessary. The patient reports that pantoprazole has been working for him as well as the famotidine. Patient denies eating late at night. Discussed with patient importance of avoiding dietary triggers in the dense 19. Standing upright for minimum 3 hours after meals discussed with him. Follow-up in the office in 6 months, sooner on a as needed basis. Patient is agreeable to this plan and verbalizes understanding of instructions. He was given opportunity to ask questions and all questions answered. Thank you for allowing me to participate in his care Medications: Refilled pantoprazole take one tablet half an hour before breakfast 40 mg PO DAILY 90 tabs 3RF K21.9 - Gastro-esophageal reflux disease without esophagitis famotidine 40 mg PO BEDTIME 90 tabs 3RF K21.9 - Gastro-esophageal reflux disease without esophagitis Coding Level of Care Code Est Pt Level 3 (01053) Diagnoses Gastroesophageal reflux disease, unspecified whether esophagitis present K21.9 Esophagitis presence: esophagitis presence not specified Chronic idiopathic constipation K59.04 Status post colonoscopy Z98.890 Time Spent (min) 25 Comment 25 minute spent with patient and additional 10 minutes spent reviewing his records
[2024-07-06 08:27] VITALS: BP 140/78; PULSE 68; O2SAT 97; BMI 45.5
--- OUTSIDE RECORDS SUMMARY | 2024-07-06 08:41 | XMS_ITS | Encounter Summary ---
Author Organization [employer] Address [address] [place] [address] Care Team Providers Care Hedis Manager Name Role Phone Jeff Arndt MD Primary Care Provide r Marco Hays PharmD Unavailable [phone] Encounter Details Date Type Department Care Team (Late st Contact Info) Description 05/20/2022 Orders Only [facility] MED & PEDS [address] [place] [address] Coty Sanchez LPN Social History Tobacco Use Types Packs/Day Years Used Date Smoking Tobacco: Never Assessed Sex and Gender Information Value Date Recorded Sex Assigned at Male 03/11/2022 10:17 AM EDT Legal Sex Male 10:17 AM EDT Gender Identity Male 03/11/2022 10:17 AM EDT Sexual Orientation Choose not to disclose 2021 10:17 AM EDT documented as of this encounter Plan of Treatment Upcoming Encounters Date Type Department Care Team (Late st Contact Info) Description 07/29/2024 9:30 AM EDT Medication Management [facility] MEDICINE [address] [place] [address] Billie Phan, PharmD [address] [place] [address] 09/02/2024 1:00 PM EDT Office Visit [facility] ADULT DENTAL [address] [place] [address] Kristen Berg [address] [place] [address] documented as of this encounter Visit Diagnoses Not on filedocumented in this encounter Care Teams Hedis Manager Relationship Specialty Start Date End Date Jeff Arndt MD [address] [place] [address] PCP - General Internal Medicine 12/14/13 Marco Hays, Lisseth [address] [place] [address] Pharmacist Internal Medicine 07/24/23 documented as of this encounter
--- OUTSIDE RECORDS SUMMARY | 2024-07-06 08:41 | XMS_ITS | Encounter Summary ---
Author Organization [employer] Address [address] [facility] [address] [facility] [address] [place] [address] Care Team Providers Care Pension Agent Name Role Phone Jeff Arndt MD Primary Care Provide r Marco Hays PharmD Unavailable [phone] Reason for Visit * Reason Comments Med Refill Encounter Details Date Type Department Care Team (Late st Contact Info) Description 06/12/2024 Refill [facility] MEDICINE [address], [place] [phone] eJff Arndt MD [address], [place] [phone] Atrial fibrillation, unspecified type (CMS/HCC) Social History Tobacco Use Types Packs/Day Years Used Date Smoking Tobacco: Never Passive Smoke Exposure: Never Smokeless Tobacco: Never Depression Answer Date Recorded Patient Health Questionnaire-9 Score 0 08/05/2023 Patient Health Questionnaire-9 Score 0 08/05/2023 Last PHQ-9: Questionnaire Data Not on file 0 08/05/2023 Housing Stability Answer Date Recorded What is your housing situation today? I have fredi pryor 02/24/[address] you li ve. Do you have problems with any of the following? None of the above 02/24/2023 Food Insecurity Answer Date Recorded Within the past 12 months, y ou worried that your food would run out before you got money to buy more: Never True 02/24/2023 Within the past 12 months,th e food you bought just didn't last and you didn't have enough money to get more: Never True Transportation Answer Date Recorded In the past 12 months, has l ack of transportation kept you from medical appts, meetings, work or from getting things needed for daily living? No 02/24/2023 Utilities Answer Date Recorded In the past 12 months, has t he electric, gas, oil or water company threatened to shut off services in your home? No 02/24/2023 Depression Answer Date Recorded Patient Health Questionnaire-2 Score 0 08/05/2023 Sex and Gender Information Value Date Recorded [...] Description 07/29/2024 9:30 AM EDT Medication Management [facility] MEDICINE [address] [place] [address] Billie Phan PharmD [address] [place] [address] 09/02/2024 1:00 PM EDT Office Visit [facility] ADULT DENTAL [address] [place] [address] Morena, Kristen [address] [place] [address] documented as of this encounter Goals Goal Patient Goal Type Associated Problems Recent Progress Patient-Stated? Author Blood Pressure < 140/90 Blood Pressure 142/70(2023 8:41 AM EST) No Marco Hays PharmD Blood Pressure < 140/90 Blood Pressure Hypertension 142/70(2023 8:41 AM EST) No Marco Hays PharmD Patient will adhere to medication regimen General Improving(02/2024 11:16 AM EDT) No Marco Hays PharmD documented as of this encounter Visit Diagnoses Diagnosis Atrial fibrillation, unspecified type (CMS/HCC) documented in this encounter Additional Health Concerns Assessment Noted Time PHQ-9 Depression Total Score: 0 08/05/19 9:31 AM EDT documented as of this encounter Care Teams Pension Agent Relationship Specialty Start Date End Date Jeff Arndt MD [address] [place] [address] PCP - General Internal Medicine 12/14/13 Marco Hays PharmD [address] [place] [address] Pharmacist Internal Medicine 07/24/23 documented as of this encounter
--- OUTSIDE RECORDS SUMMARY | 2024-07-06 08:41 | XMS_ITS | Encounter Summary ---
Author Organization [employer] Address [address] [facility] 7 [place] [address] Care Team Providers Care Guest Relations Receptionist Name Role Phone Jeff Arndt MD Primary Care Provide r Marco Hays PharmD Unavailable [phone] Encounter Details Date Type Department Care Team (Late st Contact Info) Description 09/12/2022 Abstract [facility] MEDICINE [address] [place] [address] Jeff Arndt MD [address] [place], [place] [id number] Social History Tobacco Use Types Packs/Day Years [...] Description 07/29/2024 9:30 AM EDT Medication Management [facility] MEDICINE [address] [place] [address] Billie Phan, PharmD [address] [place] [address] 09/02/2024 1:00 PM EDT Office Visit [facility] ADULT DENTAL [address] [place] [address] Kristen Berg [address] [place] [address] documented as of this encounter Procedures Procedure Name Priority Date/Time Associated Diagnosis Comments COLONOSCOPY Routine 03/12/2017 documented in this encounter Results * Colonoscopy (03/12/2017) Colonoscopy Normal Normal 03/12/2017 us Historical Provider [employer] MAINTENANCE Edited Result - Final documented in this encounter Visit Diagnoses Not on filedocumented in this encounter Care Teams Guest Relations Receptionist Relationship Specialty Start Date End Date Jeff Arndt MD [address] [place] [address] PCP - General Internal Medicine 12/14/13 Marco Hays PharmD [address] [place] [address] Pharmacist Internal Medicine 07/24/23 documented as of this encounter
--- OUTSIDE RECORDS SUMMARY | 2024-07-06 08:41 | XMS_ITS | Encounter Summary ---
Author Organization [employer] Address [address] [place] [address] 7 [place] [address] Care Team Providers Care Chemical Dependency Counselor Name Role Phone Jeff Arndt MD Primary Care Provide r Marco Hays PharmD Unavailable [phone] Encounter Details Date Type Department Care Team (Late st Contact Info) Description 07/24/2022 Orders Only [facility] MEDICINE [address] [place] [address] Rain Parada LPN Social History Tobacco Use Types Packs/Day [...] Description 07/29/2024 9:30 AM EDT Medication Management [facility] MEDICINE [address] [place] [address] Billie Phan, PharmD [address] [place] [address] 09/02/2024 1:00 PM EDT Office Visit [facility] ADULT DENTAL [address] [place] [address] Kristen Berg [address] [place] [address] documented as of this encounter Visit Diagnoses Not on filedocumented in this encounter Care Teams Chemical Dependency Counselor Relationship Specialty Start Date End Date Jeff Arndt MD [address] [place] [address] PCP - General Internal Medicine 12/14/13 Marco Hays, CarlaD [address] [place] [phone] Pharmacist Internal Medicine 07/24/23 documented as of this encounter
--- OUTSIDE RECORDS SUMMARY | 2024-07-06 08:41 | XMS_ITS | Encounter Summary ---
Author Organization [employer] Address [address] [facility] 7t [place] [address] Care Team Providers Care Cafeteria Food Server Name Role Phone Jeff Arndt MD Primary Care Provide r Marco Hays PharmD Unavailable [phone] Encounter Details Date Type Department Care Team (Late st Contact Info) Description 09/16/2022 Orders Only [facility] [address] [place] [address] Coty Sanchez LPN Social History Tobacco Use [...] Description 07/29/2024 9:30 AM EDT Medication Management [facility] MEDICINE [address] [place] [address] Billie Phan, PharmD [address] [place] [address] 09/02/2024 1:00 PM EDT Office Visit [facility] ADULT DENTAL [address] [place] [address] Kristen Berg [address] [place] [address] documented as of this encounter Procedures Procedure Name Priority Date/Time Associated Diagnosis Comments XR LUMBAR SPINE COMPLETE 4+ VIEWS Routine 10/08/2022 12:38 PM EDT XR THORACOLUMBAR SPINE 2 VIEWS Routine 10/08/2022 12:38 PM EDT documented in this encounter Results * XR Lumbar Spine Complete 4+ Views (10/08/2022 12:38 PM EDT) Anatomical Region Laterality Modality Spine, L-spine Radiographic Erin ging 10/08/2022 12:3 8 PM EDT Narrative 10/24/2022 4:39 PM EDT ?[facility] ?[address] ?[place] [address] ?XRay Report ? Signed ? Patient: Espinosa,Harvinder ?MR#: [id number] ?? 8 ? : 1950 ?Acct:[id number] ? Age/Sex: 72 / M ?ADM Date: 10/08/22 ? Loc: HO.HHCX ? Attending Dr: Jeff Ny MD ? Ordering Physician: Jeff Ny MD ?? Date of Service: 10/08/22 ?? Procedure(s): XR lumbar spine 4V min ?? Accession Number(s): [id number] ? cc: Jeff Ny MD ? EXAMINATION: ?? XR THORACIC SPINE ?? XR LUMBAR SPINE ? CLINICAL INFORMATION: ?? Back pain. ? COMPARISON: ?? CT angiogram of the chest 07/06/2020. ? TECHNIQUE: ?? 3 views of the thoracic spine, 6 views of the lumbosacral spine. ? FINDINGS: ? THORACIC SPINE: Patient is status post median sternotomy. Degenerative ?? changes are seen throughout the spine with fusion of the anterior ?? longitudinal ligament. No compression fractures or bony destructive ?? lesions are seen. ? LUMBAR SPINE: degenerative changes are seen with preservation of disc ?? spaces with the exception of L5-S1 where there is marked narrowing, ?? vacuum phenomenon and large osteophytes. No significant degenerative ?? changes are seen at facet joints. No fractures or bony destructive ?? lesions. The visualized portions of the sacrum appear unremarkable. ? XR/XR lumbar spine 4V min ?? IMPRESSION: ?? 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 ? Dictated By: ?Terry Alonso MD ? Signed By: ?<Electronically signed by Terry Alonso MD in OV> ? 10/24/22 1636 ? DD/ 1238 ? TD/TT: ? Health Information Provider: SS ? Procedure Note Donsilvanoter, Image - 11/06/[address] [address] XRay Report Signed Patient: Sangita Espinosa#: [id number] 8 : 9Acct:[id number] Age/Sex: 72 / MADM Date: 10/08/22 Loc: HO.HHCX Attending Dr: Jeff Ny MD Ordering Physician: Jeff Ny MD Date of Service: 10/08/22 Procedure(s): XR lumbar spine 4V min Accession Number(s): [id number] cc: Jeff Ny MD EXAMINATION: XR THORACIC SPINE XR LUMBAR SPINE CLINICAL INFORMATION: Back pain. COMPARISON: CT angiogram of the chest 07/06/2020. TECHNIQUE: 3 views of the thoracic spine, 6 views of the lumbosacral spine. FINDINGS: THORACIC SPINE: Patient is status post median sternotomy. Degenerative changes are seen throughout the spine with fusion of the anterior longitudinal ligament. No compression fractures or bony destructive lesions are seen. LUMBAR SPINE: degenerative changes are seen with preservation of disc spaces with the exception of L5-S1 where there is marked narrowing, vacuum phenomenon and large osteophytes. No significant degenerative changes are seen at facet joints. No fractures or bony destructive lesions. The visualized portions of the sacrum appear unremarkable. 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 Dictated By: Terry Alonso MD Signed By: <Electronically signed by Terry Alonso MD in OV> 10/24/22 1636 DD/ 1238 TD/TT: Health Information Provider: SS us [facility] External Provider IMG XR PROCEDURES Final Result * XR Thoracolumbar Spine 2 Views (10/08/2022 12:38 PM EDT) Anatomical Region Laterality Modality Spine, T-spine, L-spine Radiogra phic Imaging 10/08/2022 12:3 8 PM EDT Narrative 10/24/2022 4:39 PM EDT ?[facility] ?[address] ?[place] [address] ?XRay Report ? Signed ? Patient: Espinosa,Harvinder ?MR#: [id number] ?? 8 ? : 1950 ?Acct:[id number] ? Age/Sex: 72 / M ?ADM Date: 10/08/22 ? Loc: HO.HHCX ? Attending Dr: Jeff Ny MD ? Ordering Physician: Jeff Ny MD ?? Date of Service: 10/08/22 ?? Procedure(s): XR thoracic spine 2V ?? Accession Number(s): [id number] ? cc: Jeff Ny MD ? EXAMINATION: ?? XR THORACIC SPINE ?? XR LUMBAR SPINE ? CLINICAL INFORMATION: ?? Back pain. ? COMPARISON: ?? CT angiogram of the chest 07/06/2020. ? TECHNIQUE: ?? 3 views of the thoracic spine, 6 views of the lumbosacral spine. ? FINDINGS: ? THORACIC SPINE: Patient is status post median sternotomy. Degenerative ?? changes are seen throughout the spine with fusion of the anterior ?? longitudinal ligament. No compression fractures or bony destructive ?? lesions are seen. ? LUMBAR SPINE: degenerative changes are seen with preservation of disc ?? spaces with the exception of L5-S1 where there is marked narrowing, ?? vacuum phenomenon and large osteophytes. No significant degenerative ?? changes are seen at facet joints. No fractures or bony destructive ?? lesions. The visualized portions of the sacrum appear unremarkable. ? XR/XR thoracic spine 2V ?? IMPRESSION: ?? 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 ? Dictated By: ?Terry Alonso MD ? Signed By: ?<Electronically signed by Terry Alonso MD in OV> ? 10/24/22 1636 ? DD/ 1238 ? TD/TT: ? Health Information Provider: SS ? Procedure Note Donotrodrigointerpreter, Image - 10/24/[address] [address] XRay Report Signed Patient: Sangita Espinosa#: [id number] 8 : 9Acct:[id number] Age/Sex: 72 / MADM Date: 10/08/22 Loc: HO.HHCX Attending Dr: Jeff Ny MD Ordering Physician: Jeff Ny MD Date of Service: 10/08/22 Procedure(s): XR thoracic spine 2V Accession Number(s): [id number] cc: Jeff Ny MD EXAMINATION: XR THORACIC SPINE XR LUMBAR SPINE CLINICAL INFORMATION: Back pain. COMPARISON: CT angiogram of the chest 07/06/2020. TECHNIQUE: 3 views of the thoracic spine, 6 views of the lumbosacral spine. FINDINGS: THORACIC SPINE: Patient is status post median sternotomy. Degenerative changes are seen throughout the spine with fusion of the anterior longitudinal ligament. No compression fractures or bony destructive lesions are seen. LUMBAR SPINE: degenerative changes are seen with preservation of disc spaces with the exception of L5-S1 where there is marked narrowing, vacuum phenomenon and large osteophytes. No significant degenerative changes are seen at facet joints. No fractures or bony destructive lesions. The visualized portions of the sacrum appear unremarkable. 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 Dictated By: Terry Alonso MD Signed By: <Electronically signed by Terry Alonso MD in OV> 10/24/22 1636 DD/ 1238 TD/TT: Health Information Provider: [facility] External Provider IMG XR PROCEDURES Final Result documented in this encounter Visit Diagnoses Not on filedocumented in this encounter Care Teams Cafeteria Food Server Relationship Specialty Start Date End Date Jeff Arndt MD [address] [place] [address] PCP - General Internal Medicine 12/14/13 Marco Hays, Lisseth [address] [place] [address] Pharmacist Internal Medicine 07/24/23 documented as of this encounter
--- OUTSIDE RECORDS SUMMARY | 2024-07-06 08:41 | XMS_ITS | Clinical Summary ---
Author Organization [facility] Address [address] [place] [address] Care Team Providers Care Cyber Analyst Name Role Phone Unavailable Primary Care Provider Unavailabl e Social History Tobacco Use Types Packs/Day Years Used Date Smoking Tobacco: Never Assessed Sex and Gender Information Value Date Recorded Sex Assigned at Not on file Gender Identity Not on file Sexual Orientation Not on file Plan of Treatment Health Maintenance Due Date Last Done Comments Hepatitis C Virus Screening 1950 DTaP/Tdap/Td Vaccines (1 - Tdap) 01/03/1968 Pneumococcal Vaccines 50+ (1 of 1 - PCV) 1999 Zoster (Shingles) Vaccine (1 of 2) 1999 RSV Vaccine 60 years and old er and Patients (1 - 1-dose 75+ series) 01/03/2024 COVID-19 Vaccine ( - 2023-2 5 season) 2024 Hepatitis B Vaccines Aged Out No long er eligible based on patient's age to complete this topic
--- OUTSIDE RECORDS SUMMARY | 2024-07-06 08:41 | XMS_ITS | Clinical Summary ---
Author Organization [employer] Address [address] [facility] [facility] [address] [place] [address] Care Team Providers Care Bridge Mechanic Name Role Phone Jeff Arndt MD Primary Care Provide r Marco Hays PharmD Unavailable [phone] Allergies Active Allergy Reactions Criticality Noted Date Comments Lisinopril Cough Terazosin Hcl Headache,Dizziness,M ent al status change Medium 10/20/2023 reports that patient is not himself when he takes this medication. Additionally, experiences dizziness and headaches with this medication Medications D3 Super Strength 50 MCG (1999) capsule Take 50 mcg by mouth in the evening. 07/23/19 23 Active famotidine (Pepcid) 40 MG tablet Take 40 mg by mouth at bedtime. 07/23/19 23 Active metoprolol succinate XL (Toprol-XL) 100 MG 24 hr tablet TAKE 1 TABLET BY MOUTH TWICE DAILY IN THE MORNING AND IN THE EVENING 08/28/19 23 Active finasteride (Proscar) 5 MG tablet Take 5 mg by mouth in the morning. 07/05/19 23 Active senna (Senokot) 8.6 MG tablet Take 1 tablet by mouth at bedtime. 07/23/19 23 Active pantoprazole (ProtoNix) 40 MG EC tablet TAKE 1 TABLET BY MOUTH EVERY MORNING 30 MINUTES BEFORE BREAKFAST 11/06/19 23 Active Lancets (OneTouch Delica Plus Ldnstt43S) misc TEST BLOOD SUGAR ONCE DAILY DIRECTED 100 each 11 05/22/19 24 Active OneTouch Ultra test strip TEST BLOOD SUGAR EVERY DAY DIRECTED 100 strip 11 05/22/19 24 Active rosuvastatin (Crestor) 40 MG tabletIndications :Mixed hyperlipidemia TAKE 1 TABLET BY MOUTH AT BEDTIME 90 tablet 3 05/22/19 24 Active losartan (Cozaar) 100 MG tablet TAKE 1 TABLET BY MOUTH EVERY MORNING 90 tablet 3 05/22/19 24 Active Oral Medication Containers misc USE DIRECTED 03/31/20 23 Active albuterol (Ventolin HFA) 108 (90 Base) MCG/ACT inhalerIndication s:Wheeze Inhale 2 puffs by mouth every 4-6 hours as needed 18 g 08/19/19 24 Active Synjardy XR 5-1000 MG 24 hr tablet TAKE 1 TABLET BY MOUTH TWICE DAILY IN THE MORNING AND IN THE EVENING WITH MEALS 60 tablet 11 12/11/19 24 Active traZODone (Desyrel) 50 MG tabletIndications :Primary insomnia TAKE 1 TABLET BY MOUTH AT BEDTIME 30 tablet 3 03/25/20 24 Active terazosin (Hytrin) 5 MG capsule Take 5 mg by mouth at bedtime. 12/08/19 24 Active furosemide (Lasix) 40 MG tablet Take 1 tablet by mouth 2 times daily. Active Eliquis 5 MG tabletIndications :Atrial fibrillation, unspecified type (CMS/HCC) TAKE 1 TABLET BY MOUTH TWICE DAILY IN THE MORNING AND AT BEDTIME 60 tablet 3 06/15/19 25 Active Eliquis 5 MG tabletIndications :Atrial fibrillation, unspecified type (CMS/HCC) TAKE 1 TABLET BY MOUTH TWICE DAILY IN THE MORNING AND AT BEDTIME 60 tablet 3 01/01/20 24 025 Discontinued Active Problems Problem Noted Date Diagnosed Date Bleeding gums 05/03/2024 Dental calculus 02/25/2024 Periodontal disease 02/25/2024 Routine physical examination 10/21/2023 Assessment & Plan (10/21/2023 11:02 AM EDT): Overall unchanged, acute issue right knee pain, work up in progress Acute pain of right knee 10/21/2023 Assessment & Plan (02/12/2024 10:33 AM EDT): Pt reports pain after he hit his right knee with a piece from his car, he describes it as 8/10 when severe worse when walking On exam there was anterior tenderness, no swelling, no redness, full ROM. Denies locking or giving way Etiology ? Plain films right knee showed: No acute fracture or dislocation. 2. 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 3. Similar degree of diffuse tissue thickening. Pt tells me the pain went away completely, will continue to observe Assessment & Plan (10/21/2023 11:01 AM EDT): Pt reports pain after he hit his right knee with a piece from his car, 3 months ago, he describes it as 8/10 when severe worse when walking On exam there is anterior tenderness, no swelling, no redness, full ROM. Denies locking or giving way Etiology ? Plan: Plain films right knee, Pending on results will decide if need for ortho eval Type 2 diabetes mellitus wit hout complication, without long-term current use of insulin 10/08/2022 Overview (10/20/2023): Current therapy: - Synjardy XR 5-1000mg BID History: Updated 10/20/23 CDTM diabetes since 10/2022. Most recent A1c us 6.3% which is at goal of less than 7% per ADA guidelines.At home fasting BG have been between 90-130mg/dl. Reports that diet is an issue and eats more than he should. Concerned about weight and has started walking more. Encouraged to continue exercise and work on portion size. May add GLP1 at later time to help; will work on lifestyle changes at this time. Assessment & Plan (02/12/2024 10:29 AM EDT): Pt here for a follow uyp Hgb A1c 02/12/2024 is 6.8 Plan: continue Synyardy 5-1000 BID Follow up in 4 months Assessment & Plan (10/21/2023 11:09 AM EDT): Pt here for a follow uyp Hgb A1c 08/04/2023 is 6.3 Plan: continue Synyardy 5-1000 BID Follow up in 4 months Assessment & Plan (10/20/2023 11:22 AM EDT): Assessment: - At goal of A1c less than 7% or fasting BG between 70-130 mg/dL per ADA guidelines. Plan/ Recommendations: - Continue with current therapy - May add GLP1 at later date if A1c trends upwards Monitoring: Hemoglobin A1c Date Value 08/04/2023 6.3 % (H) 08/29/2020 6.8 % of total Hgb (H) Hemoglobin A1C (%) Date Value 03/25/2023 6.7 (A) 10/08/2022 6.8 (A) LDL Cholesterol (mg/dL (calc)) Date Value 10/29/2022 69 HDL Cholesterol (mg/dL) Date Value 10/29/2022 46 No results found for: B12 Assessment & Plan (08/05/2023 8:50 AM EDT): Pt here for a follow uyp Hgb A1c 08/04/2023 is 6.3 Plan: continue Synyardy 5-1000 BID Follow up in 4 months Assessment & Plan (07/21/2023 11:01 AM EDT): Assessment: - Unable to check A1c today; likely at goal based on at home SMBG readings. Plan: - continue with current therapy - A1c due for re-check. Ordered to be drawn at next visit. Assessment & Plan (06/02/2023 3:43 PM EST): Assessment: - A1c is at goal of less than 7% per ADA guidelines Plan: Continue with current therapy and monitoring. Assessment & Plan (05/27/2023 9:01 AM EST): Pt here for a follow uyp Hgb A1c 10/08/2022 is 6.8 Plan: continue Synyardy 5-1000 BID Follow up in 4 months Assessment & Plan (03/25/2023 1:13 PM EST): Pt here for a follow up Hgb A1c 03/15/2023 is 6.7 Plan: Continue Synyardy Follow up in 4 months Assessment & Plan (01/21/2023 11:53 AM EDT): Pt here for a follow up Hgb A1c 10/08/2022 is 6.8 Plan: Continue Synyardy Follow up in 4 months Assessment & Plan (11/05/2022 11:15 AM EDT): Pt here for a follow uyp Has been prediabetic but now seems like he has become diabetic Will order Microalbumin Hgb A1c 10/08/2022 is 6.8 Plan: Continue Synyardy Follow up in 4 months Assessment & Plan (11/04/2022 11:15 AM EDT): - A1c is at goal of less than 7% per ADA guidelines - Changed Metformin to Synjardy due to cardiac benefits Assessment & Plan (10/08/2022 12:27 PM EDT): Pt here for a follow uyp Has been prediabetic but now seems like he has become diabetic Will order Microalbumin Hgb A1c 10/08/2022 is 6.8 Plan: Increase Metformin XR 500 mg to 2 tabs po daily Follow up in 4 weeks with glucometer Elevated PSA 10/08/2022 Assessment & Plan (08/05/2023 8:51 AM EDT): Pt with previous c/o of nocturia and urinary tenesmus as well as dribbling suggestive of BPH On Hytrin 1 mg po daily Pt back in the care of Urology, Repeat PSA 08/04/2023 normal at 3.4 f/u with urology, last note 07/04/2023 Assessment & Plan (10/08/2022 10:33 AM EDT): Pt with previous c/o of nocturia and urinary tenesmus as well as dribbling suggestive of BPH On Hytrin 1 mg po daily Pt back in the care of Urology, last PSA 01/30/2021 was 4.89 f/u with urology, last note 04/20/2021 Thoracic back pain 10/08/2022 Assessment & Plan (03/25/2023 12:48 PM EST): Pt with c/o lower thoracic and lumbar back pain Plain films showed: Degenerative changes in the thoracic and lumbar spine with fusion of the anterior longitudinal ligament. Patient evaluated at [facility], recommended PT, if no improvement they recommended to consider steroid injections Assessment & Plan (01/21/2023 11:58 AM EDT): Pt with c/o lower thoracic and lumbar back pain for months intensity 5/10 On exam evidence of muscle spasm Plain films showed: Degenerative changes in the thoracic and lumbar spine with fusion of the anterior longitudinal ligament. Patient evaluated at [facility], already scheduled for PT Assessment & Plan (11/05/2022 11:08 AM EDT): Pt with c/o lower thoracic and lumbar back pain for months intensity 5/10 On exam evidence of muscle spasm Plain films showed: Degenerative changes in the thoracic and lumbar spine with fusion of the anterior longitudinal ligament. Plan: Will refer to [facility] Assessment & Plan (10/08/2022 12:27 PM EDT): Pt with c/o lower thoracic and lumbar back pain for months intensity 5/10 On exam evidence of muscle spasm Plan: Plain films, declines PT for now 1 month follow up Low back pain, non-specific 10/08/2022 Assessment & Plan (01/21/2023 11:58 AM EDT): Pt with c/o lower thoracic and lumbar back pain for months intensity 5/10 On exam evidence of muscle spasm Plain films showed: Degenerative changes in the thoracic and lumbar spine with fusion of the anterior longitudinal ligament. Patient evaluated at [facility], already scheduled for PT Assessment & Plan (11/05/2022 11:07 AM EDT): Pt here for a follow up with c/o lower thoracic and lumbar back pain for months intensity 5/10 On exam evidence of muscle spasm Plain films showed: Degenerative changes in the thoracic and lumbar spine with fusion of the anterior longitudinal ligament. Plan: Will refer to [facility] Assessment & Plan (10/08/2022 12:28 PM EDT): Pt with c/o lower thoracic and lumbar back pain for months intensity 09/18 On exam evidence of muscle spasm Plan: Plain films, declines PT for now 1 month follow up Chronic congestive heart failure 09/27/2022 Assessment & Plan (05/27/2023 9:02 AM EST): pt here for a f/u Pt denies any sob, no chest pain On Lasix 60 mg po daily Will continue to f/u with his Welder Fitter Apprentice, Last seen 01/2023 ECHO done 10/05/2021 showed Low Normal LV systolic function LVEF 50-55% with elevated filling pressures, mild to mod MR, mod elevated Assessment & Plan (03/25/2023 12:45 PM EST): pt here for a f/u Pt denies any sob, no chest pain Back on Lasix 60 mg po daily Will continue to f/u with his Welder Fitter Apprentice, Last seen 01/2023 ECHO done 10/05/2021 showed Low Normal LV systolic function LVEF 50-55% with elevated filling pressures, mild to mod MR, mod elevated Assessment & Plan (10/08/2022 10:39 AM EDT): pt here for a f/u Pt denies any sob, no chest pain Back on Lasix 60 mg po daily Will continue to f/u with his Welder Fitter Apprentice Last seen 02/20/2022 They recommended 3 month f/u ECHO done 10/05/2021 showed Low Normal LV systolic function LVEF 50-55% with elevated filling pressures, mild to mod MR, mod elevated Paroxysmal atrial fibrillation 09/27/2022 Assessment & Plan (10/21/2023 11:03 AM EDT): Diagnosed ( 07/07/2020) Pt is on Metoprolol for rate control and Eliquis Recent ECHO 08/2020 showed low normal EF and Pulm HTN Pt is following with Dr Chung Last seen 09/2023 Assessment & Plan (10/08/2022 10:40 AM EDT): Diagnosed ( 07/07/2020) Pt is on Metoprolol for rate control and Eliquis Recent ECHO 08/2020 showed low normal EF and Pulm HTN Pt is following with Dr Chung Last seen 02/20/2022 They recommended 3 month f/u with repeat ECHO [facility] care 09/27/2022 Assessment & Plan (10/21/2023 10:48 AM EDT): PSA: down to 3.4 07/2023 under the care of Urology Colonoscopy 03/12 2017 Assessment & Plan (10/08/2022 10:34 AM EDT): PSA: 4.89 under the care of Urology Colonoscopy 03/12 2017 Gastroesophageal reflux disease 11/18/2013 Assessment & Plan (10/08/2022 10:41 AM EDT): Pt with recurrent c/o severe heartburn In the past he was seen at [facility] on 11/17/2012 after pt c/o heartburn. Pt underwent an EGD. on 02/18/2013 that showed reflux esophagitis and antral gastritis. Dr Hansen recommended repeat colonoscopy 2017 Currently on Omeprazole 40 mg po daily Previous visit he was referred back to [facility] for [place], unfortunately his new insurance does not contract with [facility] He is now followed at [facility] last note 12/04/2021 Atherosclerosis of coronary artery 04/09/2012 Assessment & Plan (10/21/2023 10:46 AM EDT): Pt denies any recent c/o Chest pain Pt has CAD S/P CABG in 2002. Pt under the care of [facility]. Last seen 09/18/2023 Assessment & Plan (03/25/2023 12:46 PM EST): Pt denies any recent c/o Chest pain Pt has CAD S/P CABG in 2002. Pt under the care of [facility]. Last seen 01/2023 Assessment & Plan (10/08/2022 10:39 AM EDT): Pt denies any recent c/o Chest pain Pt has CAD S/P CABG in 2002. Pt under the care of [facility]. Last seen 02/20/2022 They recommended 3 month f/u with repeat ECHO.( ECHO done 08/31/2021 Normal EF ) Hypertension 04/09/2012 Overview (10/20/2023): Pharmacotherapy: - Furosemide 40 mg, 1.5 tablets daily - Losartan 100 mg daily - Metoprolol succinate 100 mg daily - (indirect) Terazosin 5mg daily History: updated 10/20/2023 Established with CDTM 02/2023. Has co-morbidity of CHF managed by cardiology and history of CABG. Stopped taking morning medications due to SIDNEY of dizziness. Confirmed to be associated with Terazosin. Patient was supposed to discuss with urologist/firmware software verification engineer but doesn't seem to have happened. Adherence to other medications significantly improved since trazosin moved to vials. - Home BP readings range from SBP 120-150 and DBP 70-90. Assessment & Plan (02/12/2024 10:27 AM EDT): Patient here for a f/u BP controlled He is on a regimen of: Lasix 60 mg po daily , Losartan 100 mg po daily. And Metoprolol succinate 100 mg po daily ( Hctz was D'Markus after he was started on Lasix) On med box and attending CDTM Most recent electrolytes, Bun and Creatinine done on: 08/04/2023 were wnl. Plan: Continue with current regimen patient advised to adhere to a low sodium diet, encouraged about medication compliance, counseled about weight loss. f/u 4 months Assessment & Plan (10/21/2023 10:58 AM EDT): Patient here for a f/u Elevated, did not take his meds today He is on a regimen of: Lasix 60 mg po daily , Losartan 100 mg po daily. And Metoprolol succinate 100 mg po daily ( Hctz was D'Markus after he was started on Lasix) On med box and attending CDTM Most recent electrolytes, Bun and Creatinine done on: 08/04/2023 were wnl. Plan: Continue with current regimen patient advised to adhere to a low sodium diet, encouraged about medication compliance, counseled about weight loss. f/u 4 months Assessment & Plan (10/20/2023 11:19 AM EDT): Assessment: - BP is at goal of less than 140/90 per JNC8 guidelines Plan/ Recommendations: - Continue with current therapy ; f/u in 1 year Monitoring: Potassium (mmol/L) Date Value 08/04/2023 4.0 10/29/2022 4.2 BP Readings from Last 2 Encounters: 10/20/23 130/80 08/05/23 (!) 159/93 Assessment & Plan (08/05/2023 8:49 AM EDT): Patient here for a f/u BP better control He is on a regimen of: Lasix 60 mg po daily , Losartan 100 mg po daily. Metoprolol succinate 100 mg po daily and Terazosin 1mg po daily ( Hctz was D'Markus after he was started on Lasix) On uromovie and attending CDTM Most recent electrolytes, Bun and Creatinine done on: 08/04/2023 were wnl. Plan: Continue with current regimen patient advised to adhere to a low sodium diet, encouraged about medication compliance, counseled about weight loss. f/u 4 months Assessment & Plan (07/21/2023 10:59 AM EDT): Assessment: - BP is not at goal of less than 140/90 per JNC8 guidelines. - Adverse drug event: dizziness Plan: - Move terazosin to vials and consult with urology to try other medication - Restart morning medications - Stop terazosin for a few days to see if dizziness resolves. - BMP ordered for next visit Assessment & Plan (06/02/2023 2:58 PM EST): Assessment: BP is at goal of less than 140/90 per JNC8 guidelines Plan: Continue with current therapy and monitoring F/u with cardiology this week Assessment & Plan (05/27/2023 8:56 AM EST): Patient here for a f/u BP better control He is on a regimen of: Lasix 60 mg po daily , Losartan 100 mg po daily. Metoprolol succinate 100 mg po daily and Terazosin 1mg po daily ( Hctz was D'Markus after he was started on Lasix) On med box and attending CDTM Most recent electrolytes, Bun and Creatinine done on: 10/2022 were wnl. Plan: Continue with current regimen patient advised to adhere to a low sodium diet, encouraged about medication compliance, counseled about weight loss. f/u 4 months Assessment & Plan (03/25/2023 1:13 PM EST): Patient here for a f/u BP uncontrolled Pt reports non compliance Today we have discussed need to take his medications he is on a regimen of: Lasix 60 mg po daily , Losartan 100 mg po daily. Metoprolol succinate 100 mg po daily and Terazosin 1mg po daily ( Hctz was D'Markus after he was started on Lasix) Plan: On med box and attending CDTM Most recent electrolytes, Bun and Creatinine done on: 10/2022 were wnl. patient advised to adhere to a low sodium diet, encouraged about medication compliance, counseled about weight loss. f/u 4 months Assessment & Plan (01/21/2023 11:53 AM EDT): Patient here for a f/u BP better control he is on a regimen of: Lasix 60 mg po daily , Losartan 100 mg po daily. Metoprolol succinate 100 mg po daily and Terazosin 1mg po daily ( Hctz was D'Markus after he was started on Lasix) Plan: On med box now and attending CDTM Most recent electrolytes, Bun and Creatinine done on: 10/2022 were wnl. patient advised to adhere to a low sodium diet, encouraged about medication compliance, counseled about weight loss. f/u 4 months Assessment & Plan (11/05/2022 11:10 AM EDT): Patient here for a f/u BP better control he is on a regimen of: Lasix 60 mg po daily , Losartan 100 mg po daily. Metoprolol succinate 100 mg po daily and Terazosin 1mg po daily ( Hctz was D'Markus after he was started on Lasix) Plan: On med box now and attending CDTM Most recent electrolytes, Bun and Creatinine done on: 10/2022 were wnl. patient advised to adhere to a low sodium diet, encouraged about medication compliance, counseled about weight loss. f/u 4 months Assessment & Plan (11/04/2022 11:13 AM EDT): - BP is not at goal of less than 140/90 per JNC8 guidelines due to non- adherences to lasix - Move lasix to vials; continue to take as directed. Assessment & Plan (10/08/2022 10:30 AM EDT): Patient here for a f/u BP better control he is on a regimen of: Lasix 60 mg po daily , Losartan 100 mg po daily. Metoprolol succinate 100 mg po daily and Terazosin 1mg po daily ( Hctz was D'Markus after he was started on Lasix) Plan: On med box now and attending CDTM Most recent electrolytes, Bun and Creatinine done on: 10/05/2021 were wnl. Will repeat patient advised to adhere to a low sodium diet, encouraged about medication compliance, counseled about weight loss. f/u 4 months Mixed hyperlipidemia 04/09/2012 Assessment & Plan (11/05/2022 11:09 AM EDT): Patient here for a f/u Lipid profile 10/29/2022 shows a total cholesterol of 132 triglycerides of 88 HDL of: 46 and LDL 69 on Crestor 40 mg qhs and fish oil. Advised low cholesterol diet, counseled and educated about diet and exercise Patient encouraged to come up with a personal goal for weight loss. Assessment & Plan (10/08/2022 10:31 AM EDT): Patient here for a f/u Lipid profile 10/05/2021 shows a total cholesterol of 126 triglycerides of 84 HDL of: 70 and LDL 84 on Crestor 40 mg qhs and fish oil. Will repeat Advised low cholesterol diet, counseled and educated about diet and exercise Patient encouraged to come up with a personal goal for weight loss. Class 3 severe obesity due t o excess calories with serious comorbidity and body mass index (BMI) of 40.0 to 44.9 in adult 04/09/2012 Assessment & Plan (10/21/2023 11:04 AM EDT): Patient has been counseled and educated about diet and exercise. Personal goal of weight loss discussedPatient has comorbidity of: DM, HTN [facility] On a wait list Gained 7 lbs since last visit Assessment & Plan (08/05/2023 9:29 AM EDT): Patient has been counseled and educated about diet and exercise. Personal goal of weight loss discussedPatient has comorbidity of: DM, HTN [facility] Assessment & Plan (05/27/2023 9:13 AM EST): Patient has been counseled and educated about diet and exercise. Personal goal of weight loss discussedPatient has comorbidity of: DM, HTN [facility] Obstructive sleep apnea syndrome 04/09/2012 Assessment & Plan (05/27/2023 9:15 AM EST): Pt finally has a Cpap machine, has been using it regularly Assessment & Plan (01/21/2023 11:57 AM EDT): Pt finally has a Cpap machine, has been using Assessment & Plan (11/05/2022 12:41 PM EDT): Pt 's Cpap machine apparently is not working anymore, was given to him > 7 yrs ago per his report Pt referred for a repeat sleep study. [facility] 10/22/2022 scheduled for a repeat Sleep study with titration Assessment & Plan (10/08/2022 10:35 AM EDT): Pt 's Cpap machine apparently is not working anymore, was given to him > 7 yrs ago per his report Pt referred for a repeat sleep study, pt tells me this has yet to be scheduled Encounters Date Type Department Care Team Description 06/22/2024 Orders Only GENERIC EXTERNAL DATA DEPARTMENT Provider, Generic External Data 06/12/2024 Refill [facility] [address] [place] [address] Jeff Arndt MD Atrial fibrillation, unspecified type (CMS/HCC) 05/03/2024 9:00 AM EST Office Visit [facility] ADULT DENTAL [address] [place] [address] Kristen Berg Periodontal disease (Primary Dx); Dental calculus; Bleeding gums from Last 3 Months Immunizations Name Administration Dates Next Due Influenza High-dose Quadriva lent Preservative Free 02/26/2023,02/15/2020 Influenza Quadrivalent Adjuvanted 02/27/2021 Influenza injectable quadriv alent preservative free 02/02/2015 Influenza, High Dose Seasona l, Preservative Free 02/12/2024,02/19/2018,01/31/2017,02/11 Influenza, IIV3, injectable 02/22/2014, 1 Influenza, Split (incl. shamir fied surface antigen) 03/09/2013,04/09/2012 Pfizer Covid-19 Vaccine 12+ 02/12/2024 Pneumococcal Conjugate PCV 13 04/04/2015 Pneumococcal Polysaccharide PPSV23 10/22/2016, TD (adult), 2 Lf tetanus tox oid, preservative free, adsorbed 09/02/2002 Tdap 07/30/2013 Zoster, Recombinant 03/26/2019,03/19/2018 Zoster, live 06/16/2014 Social History Tobacco Use Types Packs/Day Years Used Date Smoking Tobacco: Never Passive Smoke Exposure: Never Smokeless Tobacco: Never Tobacco Cessation:Counseling Given: Not Answered Depression Answer Date Recorded Patient Health Questionnaire-9 [...] not to disclose 2021 10:17 AM EDT Last Filed Vital Signs Vital Sign Reading Time Taken Comments Blood Pressure 142/70 05/03/2024 8:41 AM EST Pulse 60 03/31/2024 9:05 AM EST Temperature 36.1 ??C (97 ??F) 02/12/2024 10:16 AM EDT Respiratory Rate 20 02/12/2024 10:16 AM EDT Oxygen Saturation 98% 02/12/2024 10:16 AM EDT Inhaled Oxygen Concentration - - Weight 126 kg (278 lb 6.4 oz) 02/12/2024 10:16 A M EDT Height 167.6 cm (5' 6 ) 02/12/2024 10:16 AM EDT Body Mass Index 44.93 02/12/2024 10:16 AM EDT Plan of Treatment Upcoming Encounters Date Type Department Care Team (Late st Contact Info) Description 07/29/2024 9:30 AM EDT Medication Management [facility] MEDICINE [address] [place] [address] Billie Phan, PharmD [address] [place] [address] 09/02/2024 1:00 PM EDT Office Visit [facility] ADULT DENTAL [address] [place] [address] Kristen Berg [address] [place] [address] Health Maintenance Due Date Last Done Comments CT Colonography 1949 FIT DNA/Cologuard 1949 FIT 1949 FOBT 1949 Sigmoidoscopy 1949 Diabetes: Foot Exam 1959 Eye Exam 1959 Alcohol/Substance Use Screening 1961 DTaP/Tdap/Td Vaccines (2 - Td or Tdap) 07/31/2023 07/30/2013, 09/02/2002 Lipid Panel 10/30/2023 10/29/2022, 08/11, 02/15/2020 RSV Patients and Patients Aged 60 years or older (1 - 1-dose 75+ series) 01/03/2024 Diabetes: Urine Protein Screening 06/02/2024 06/02/2023 Dental Oral Exam 07/15/2024 01/15/2024, , 02/11/2012, Additional history exists Depression Screening 08/04/2024 08/05/2023, 08/05/19 SDOH Screening 08/04/2024 08/05/2023 Diabetes: Hemoglobin A1C 08/12/2024 024, 08/04/2023, 03/25/2023, Additional history exists Dental Prophylaxis 08/26/2024 02/25/2024, 0 10/15/2013, 11/26/2012, Additional history exists Tobacco Screening 05/03/2025 05/03/2024 Dental X-Ray: Bitewings 05/04/2025 05/03/20, 01/15/2024, 10/15/2013, Additional history exists Dental X-Ray: Full Mouth 01/15/2027 01/15/2024, 1212/2010 Colonoscopy 06/22/2034 03/12/2017 Colorectal Cancer Screening 06/22/2034 Pneumococcal Vaccine: 50+ Years Completed 10/22/2016, 04/04/2015, 09/15/2003 Zoster Vaccines Completed 03/26/2019, 11/0 12/2017, 06/16/2014 Hepatitis C Screening Completed 10/29/2022 COVID-19 Vaccine Completed 02/12/2024, , 08/17/2021, Additional history exists Influenza Vaccine Completed 02/12/2024, , 02/27/2021, Additional history exists HIB Vaccines Aged Out No longer eligi ble based on patient's age to complete this topic HPV Vaccines Aged Out No longer eligi ble based on patient's age to complete this topic Hepatitis A Vaccines Aged Out No long er eligible based on patient's age to complete this topic Hepatitis B Vaccines Aged Out No long er eligible based on patient's age to complete this topic IPV Vaccines Aged Out No longer eligi ble based on patient's age to complete this topic Meningococcal Vaccine Aged Out No natty ron eligible based on patient's age to complete this topic RSV under 20 months Aged Out No longe r eligible based on patient's age to complete this topic Rotavirus Vaccines Aged Out No longer eligible based on patient's age to complete this topic Goals Goal Patient Goal Type Associated Problems Recent Progress Patient-Stated? Author Blood Pressure < 140/90 Blood Pressure 142/70(2023 8:41 AM EST) No Marco Hays PharmD Blood Pressure < 140/90 Blood Pressure Hypertension 142/70(2023 8:41 AM EST) No Marco Hays PharmD Patient will adhere to medication regimen General Improving(02/2024 11:16 AM EDT) No Marco Hays PharmD Procedures Procedure Name Priority Date/Time Associated Diagnosis Comments HEMATOXYLIN AND EOSIN STAIN Routine 06/22/2024 9:23 AM EST GLUCOSE, WHOLE BLOOD Routine 06/22/2024 8:47 AM EST BITEWINGS - 4 RADIOGRAPHIC IMAGES Routine 05/03/2024 9:00 AM EST CASE PRESENTATION, DETAILED AND EXTENSIVE TREATMENT PLANNING Routine 05/03/2024 9:00 AM EST Periodontal disease Dental calculus Bleeding gums ORAL HYGIENE INSTRUCTIONS Routine 05/03/2024 9:00 AM EST Periodontal disease Dental calculus Bleeding gums LR PERIODONTAL SCALING AND ROOT PLANING - 4 OR MORE TEETH PER QUADRANT Routine 05/03/2024 9:00 AM EST Periodontal disease Dental calculus Bleeding gums UR PERIODONTAL SCALING AND ROOT PLANING - 4 OR MORE TEETH PER QUADRANT Routine 05/03/2024 9:00 AM EST Periodontal disease Dental calculus Bleeding gums PROPHYLAXIS - ADULT Routine 02/25/2024 3 :00 PM EDT Dental calculus Periodontal disease POCT GLYCATED HEMOGLOBIN, TOTAL Routine 02/12/2024 10:22 AM EDT Type 2 diabetes mellitus without complication, without long-term current use of insulin ([facility]) INTRAORAL - COMPLETE SERIES OF RADIOGRAPHIC IMAGES Routine 01/15/2024 1:30 PM EDT Encounter for dental examination Accretions on teeth Dental calculus Bruxism COMPREHENSIVE ORAL EVALUATION - NEW OR ESTABLISHED PATIENT Routine 01/15/2024 1:30 PM EDT Encounter for dental examination Accretions on teeth Dental calculus Bruxism ALBUMIN, RANDOM URINE W/CREATININE Routine 06/02/2023 3:16 PM EST Type 2 diabetes mellitus without complication, without long-term current use of insulin ([facility]) HEPATITIS C AB W/REFL TO HCV RNA, QN, PCR Routine 10/29/2022 10:18 AM EDT Preventative health care LIPID PANEL WITH REFLEX TO DIRECT LDL Routine 10/29/2022 10:18 AM EDT Mixed hyperlipidemia HM COLONOSCOPY Routine 03/12/2017 from Last 3 Months or Most Recently Relevant to Health Maintenance Results * Hematoxylin and Eosin Stain (06/22/2024 9:23 AM EST) 06/22/2024 9:23 AM EST 06/22/2024 10:34 AM EST [facility] - 06/24/2024 4:30 PM EST ----- ------- Name: Harvinder Gaming ?Age/Sex: 74/M ? : 1950 Unit#: [id number] ?? Attend Dr: Destinee Levi MD ?Re06/22/24 ?Status: DEP SDC ? Location: HO.SSS ?Disch: ? ----- ------- SPEC : [id number] ?RECD: 06/22/24-1033 ? STATUS: ??SOUT ? REQ NUM: [id number] ? SUMIT: 06/22/24-922 ? SUBM DR: Destinee Levi MD ? ENTERED: ??06/22/24-1100 ?SP TYPE: Surgical ? OTHR DR: Jeff Ny MD ?? ORDERED: ??HE Stain/12, Gross Micro L4/5, IHC, Special st. 2/2, H. pylori, AB/PAS/2 ? Diagnosis ?? A. ??Duodenum, biopsy: ??Duodenal mucosa within normal limits. ? B. ??Stomach, biopsy: ??Antral-type and oxyntic mucosa with mild chronic inactive ?? inflammation; no Helicobacter organisms seen. ? C. ??GE junction, biopsy: ?- Squamous epithelium within normal limits; no inflammation seen. ?- No glandular epithelium present. ? D. ??Esophagus, distal, biopsy: ??Squamous epithelium within normal limits; no inflammation ?? seen. ? E. ??Esophagus, proximal, biopsy: ??Squamous epithelium within normal limits; no ?? inflammation seen. ?Clinical History Pre-Op Dx: ??Screening Post-Op Dx: Gastritis, hiatal hernia, internal hemorrhoids, melanosis coli ?Microscopic Description A-E. ??Microscopic sections examined. ??No metaplastic changes are seen, supported by AB/PAS stains (A and B); no Helicobacter organisms are seen, supported by H. pylori immunostain (B). ? Material Received ?? A. Duodenum ?? B. Stomach ?? C. GE junction ?? D. Distal esophagus ?? E. Proximal esophagus ? Gross Description Received in 5 parts. A. ??Received in formalin labeled ?duodenum? are 3 fragments of swartz- white soft tissue measuring 0.2-0.3 cm in greatest dimension which are wrapped in lens paper and entirely submitted for microscopic examination, 3 pieces in cassette A. ? CONTINUED ON NEXT PAGE ----- ------- Name: Harvinder Gaming ?Age/Sex: 74/M ? : 1950 Unit#: [id number] ?? Attend Dr: Destinee Levi MD ?Re06/22/24 ?Status: DEP SDC ? Location: [facility] ?Disch: ? ----- ------- SPEC : [id number] ?RECD: 06/22/24-1033 ? STATUS: ??SOUT ? REQ NUM: [id number] ? SUMIT: 06/22/24-922 ? SUBM DR: Destinee Levi MD ? ENTERED: ??06/22/24-1100 ?SP TYPE: Surgical ? OTHR DR: Jeff Ny MD ?? ORDERED: ??HE Stain/12, Gross Micro L4/5, IHC, Special st. 2/2, H. pylori, AB/PAS/2 ? Gross Description ?(Continued) B. ??Received in formalin labeled ?stomach? are 2 fragments of swartz- white soft tissue measuring 0.3 and 0.6 cm in greatest dimension which are wrapped in lens paper and entirely submitted for microscopic examination, 2 pieces in cassette B. C. ??Received in formalin labeled ?GE junction? are 3 fragments of swartz-white soft tissue measuring 0.2-0.3 cm in greatest dimension which are wrapped in lens paper and entirely submitted for microscopic examination, 3 pieces in cassette C. D. Received in formalin labeled ?distal esophagus? are 3 fragments of translucent, white soft tissue measuring 0.2-0.3 cm in greatest dimension which are wrapped in lens paper and entirely submitted for microscopic examination, 3 pieces in cassette D. E. ??Received in formalin labeled ?proximal esophagus? are 2 fragments of translucent, white soft tissue measuring 0.2 and 0.2 cm in greatest dimension which are wrapped in lens paper and entirely submitted for microscopic examination, 2 pieces in cassette E. ??[facility] Special studies ordered and performed: Immunostain for H. pylori on B; AB/PAS stains on A and B Copies To: ?? Jeff Ny MD ?? [facility] ?? [address] ?? [place] [address] ?? [phone] ?? Destinee Levi MD ?? [facility] ?? [address] ?? [place] [address] ?? [phone] ----- ------- Signed (signature on file) Rashid Hughes MD 06/24/24 9100 ? ----- ------- ? END OF REPORT ? us Generic External Data Provider LAB BLOOD ORDERAB LES Final Result [facility] [address] [place] [address] [phone] * Glucose, Whole Blood (06/22/2024 8:47 AM EST) Glucose, Whole Blood 105 60 - 115 mg/dL [facility] Comment:METER #: [id number] 06/22/2024 8:47 AM EST 06/22/2024 8:56 AM EST Generic External Data Provider LAB BLOOD ORDERAB LES Final Result [facility] [address] [place] [phone] * (ABNORMAL) POCT HGB A1C (02/12/2024 10:22 AM EDT) Hemoglobin A1C 6.8(A) 4.0 - 6.0 % QC Media Lot # [id number] Lot# Expiration Date Blood 02/12/2024 10:2 2 AM EDT Jeff Bazzi MD POINT OF CARE TEST EN TER/EDIT ORDERABLES Final Result * Albumin, Random Urine W/Creatinine (06/02/2023 3:16 PM EST) Creatinine, Urine 207.30 mg/dL [facility] Microalbumin Urine 17.0 mg/L [facility] Microalbum Creatinine Ratio Ur 8.2 <30 ug/mg cr [facility] Comment:Albumin/Creatinine R atio Reference Ranges: Normal: < 30 ug/mg creatinine Microalbuminuria: 30 - 300 ug/mg creatinineClinical Albuminuria: > 300 ug/mg creatinine Urine (Urine, Random) 06/02/2023 3:16 PM EST 06/02/2023 4:16 PM EST Jeff Bazzi MD LAB URINE ORDERABLES Final Result Performing Organization Address City/[facility]/ZIP Co de Phone Number [facility] [address] [place] [address] [phone] * Lipid Panel with Reflex to Direct LDL (10/29/2022 10:18 AM EDT) Cholesterol, Total 132 <200 mg/dL [facility] HDL Cholesterol 46 > OR = 40 mg/dL [facility] Triglycerides 88 <150 mg/dL [facility] LDL Cholesterol 69 mg/dL (calc) [facility] [employer] Comment: Reference range: <100 Desirable range <100 mg/dL for primary prevention; ?? <70 mg/dL for patients with CHD or diabetic patients with > or = 2 CHD risk factors. LDL-C is now calculated using the Ayush calculation, which is a validated novel method providing better accuracy than the Friedewald equation in the estimation of LDL-C. Roger SS et al. FRAN. 2013;310(19): 5054-0051 (http://education.Granify/faq/WZU825) Chol/HDLC Ratio 2.9 <5.0 (calc) [facility] Non-HDL Cholesterol 86 <130 mg/dL (calc) [facility] Comment: For patients with diabetes plus 1 major ASCVD risk factor, treating to a non-HDL-C goal of <100 mg/dL (LDL-C of <70 mg/dL) is considered a therapeutic option. 10/29/2022 10:1 8 AM EDT 10/29/2022 10:18 AM EDT Narrative [facility] - 10/29/2022 10:25 PM EDT FASTING:YES FASTING: YES us Jeff Bazzi MD LAB BLOOD ORDERABLES Final Result [facility] [address], [place] [address] [facility] [address] [place] [address] * Hepatitis C Antibody with Reflex to HCV, RNA, Quantitative, Real-Time PCR (10/29/2022 10:18 AM EDT) Hepatitis C Antibody NON-REACT PRUDENCE NON-REACT PRUDENCE [facility] [place] [email or web address] Comment: HCV antibody was non-reactive. There is no laboratory evidence of HCV infection. In most cases, no further action is required. However, if recent HCV exposure is suspected, a test for HCV RNA (test code 68816) is suggested. For additional information please refer to http://education.Ascenz/faq/IJO56f0 (This link is being provided for informational/ educational purposes only.) Blood Venous blood specimen / Unknown 10/29/2022 10:18 AM EDT 10/29/2022 10:18 AM EDT Narrative [facility] - 10/29/2022 10:25 PM EDT FASTING:YES FASTING: YES Jeff Bazzi MD LAB BLOOD ORDERABLES Final Result [facility] [address], [place] [address] [facility] [place] [facility] [employer] [address] [place] [address] * Hm Colonoscopy (03/12/2017) Pathologist [facility] Colonoscopy Normal Normal 03/12/2017 Historical Provider HEALTH MAINTENANCE Edited Result - Final from Last 3 Months or Most Recently Relevant to Health Maintenance Insurance [facility] DUAL COMPLETE DENTAL - [facility] Advance Directives Documents on File Type Date Recorded Patient Runner Out Expl anation Advance Directives and Livin g Will 02/10/2023 Health Care Proxy Care Teams Bridge Mechanic Relationship Specialty Start Date End Date Jeff Anrdt MD [address] [place] [address] PCP - General Internal Medicine 12/14/13 Marco Hays, CarlaD [address] [place] [address] Pharmacist Internal Medicine 07/24/23
--- OUTSIDE RECORDS SUMMARY | 2024-07-06 08:41 | XMS_ITS | Encounter Summary ---
Author Organization [employer] Address [address] [place] [address] [address] [place] [address] Care Team Providers Care Display Trimmer Name Role Phone Jeff Arndt MD Primary Care Provide r Marco Hays PharmD Unavailable [phone] Encounter Details Date Type Department Care Team (Late st Contact Info) Description 05/22/2022 Orders Only [facility] [address] [place] [address] Rain Parada LPN Social History Tobacco Use [...] Description 07/29/2024 9:30 AM EDT Medication Management [facility] [address] [place] [address] Billie Phan, PharmD [address] [place] [address] 09/02/2024 1:00 PM EDT Office Visit [facility] ADULT DENTAL [address] [place] [address] Kristen Berg [address] [place] [address] documented as of this encounter Visit Diagnoses Not on filedocumented in this encounter Care Teams Display Trimmer Relationship Specialty Start Date End Date Jeff Arndt MD [address] [place] [address] PCP - General Internal Medicine 12/14/13 Marco Hays, CarlaD [address] [place] [phone] Pharmacist Internal Medicine 07/24/23 documented as of this encounter
--- OUTSIDE RECORDS SUMMARY | 2024-07-06 08:41 | XMS_ITS | Encounter Summary ---
Author Organization [employer] Address [address] [facility] [address] [place] [address] Care Team Providers Care Fixed Income Director Name Role Phone Jeff Arndt MD Primary Care Provide r Marco Hays PharmD Unavailable [phone] Encounter Details Date Type Department Care Team (Late st Contact Info) Description 06/22/2024 Orders Only GENERIC EXTERNAL DATA DEPARTMENT Provider, Generic External Data Social History Tobacco Use Types Packs/Day Years [...] t he electric, gas, oil or water [employer] threatened to shut off services in your [...] Description 07/29/2024 9:30 AM EDT Medication Management [facility] [address] [place] [address] Billie Phan PharmD [address] [place] [address] 09/02/2024 1:00 PM EDT Office Visit [facility] ADULT DENT[facility] [address] [place] [address] Morena, Kristen [address] [place] [address] documented as of this encounter Goals Goal [...] Hays PharmD documented as of this encounter Procedures Procedure Name Priority Date/Time Associated Diagnosis Comments HEMATOXYLIN AND EOSIN STAIN Routine 06/22/2024 9:23 AM EST GLUCOSE, WHOLE BLOOD Routine 06/22/2024 8:47 AM EST documented in this encounter Results * Hematoxylin and Eosin Stain (06/22/2024 9:23 AM EST) 06/22/2024 9:23 AM EST 06/22/2024 10:34 AM EST Narrative [facility] - 06/24/2024 4:30 PM EST ----- ------- Name: Harvinder Gaming ?Age/Sex: 74/M ? : 1950 Unit#: [id number] ?? Attend Dr: Destinee Levi MD ?Re06/22/24 ?Status: DEP SDC ? Location: HO.[facility]S ?Disch: ? ----- ------- SPEC : [id number] ?RECD: 06/22/24-1033 ? STATUS: ??SOUT ? REQ NUM: [id number] ? SUMIT: 06/22/24-922 ? SUBM DR: Destinee Levi MD ? ENTERED: ??06/22/24-1101 ?SP TYPE: Surgical ? OTHR DR: Jeff [...] CONTINUED ON NEXT PAGE ----- ------- Name: Espinosabing ZhuHarvinder ?Age/Sex: 74/M ? : 1950 Unit#: [id number] ?? Attend Dr: Destinee Levi MD ?Re06/22/24 ?Status: DEP SDC ? Location: HO.SSS ?Disch: ? ----- ------- SPEC : [id number] ?RECD: 06/22/24-1033 ? STATUS: ??SOUT ? REQ NUM: [id number] ? SUMIT: 06/22/24-922 ? SUBM DR: Destinee [...] microscopic examination, 2 pieces in cassette E. ??[facility] Special studies ordered and performed: Immunostain for H. pylori on B; AB/PAS stains on A and B Copies To: ?? Jeff Ny MD ?? [facility] ?? [address] ?? [place] [address] ?? [phone] ?? Destinee Levi MD ?? [facility]astro[facility] ?? [address] ?? [place] [address] ?? [phone] ----- ------- Signed (signature on file) Rashid Hughes MD 06/24/24 1630 ? ----- ------- ? END OF REPORT ? Generic External Data Provider LAB BLOOD ORDERAB LES Final Result Performing Organization Address [facility] de Phone Number [facility] [address] [place] [address] [phone] * Glucose, Whole Blood (06/22/2024 8:47 AM EST) [facility] Glucose, Whole Blood 105 60 - 115 mg/dL [facility] Comment:METER #: [id number] 06/22/2024 8:47 AM EST 06/22/2024 8:56 AM EST Generic External Data Provider LAB BLOOD ORDERAB LES Final Result Performing Organization Address [facility] de Phone Number [facility] [address] [place] [address] [phone] documented in this encounter Visit Diagnoses Not on filedocumented in this encounter Additional Health Concerns Assessment Noted Time PHQ-9 Depression Total Score: 0 08/05/19 24 9:31 AM EDT documented as of this encounter Care Teams Fixed Income Director Relationship Specialty Start Date End Date Jeff Arndt MD [address] [place] [phone] PCP - General Internal Medicine 12/14/13 Marco Hays, Lisseth [address] [place] [phone] Pharmacist Internal Medicine 07/24/23 documented as of this encounter
== END 2024-07-06 08:50 | disposition home or self-care (01) ==
PROVIDERS: PCP Internal Medicine; Visit Provider Nurse Practitioner Family
DX: K21.9 Gastro-esophageal reflux disease without esophagitis (principal); K59.04 Chronic idiopathic constipation; Z98.890 Other specified postprocedural states
CPT/HCPCS: 99213

== ENCOUNTER → 2024-07-06 08:21 | Outpatient (BNVA) | payer OTHER, SELFPAY | PROVIDERS: PCP Internal Medicine; Visit Provider Nurse Practitioner Family | DX: K59.04 Chronic idiopathic constipation (principal); K21.9 Gastro-esophageal reflux disease without esophagitis; Z71.2 Person consulting for explanation of examination or test findings; Z98.890 Other specified postprocedural states | CPT/HCPCS: 99212 ==

== ENCOUNTER 2024-08-13 07:13 | Outpatient (REF) | payer OTHER, SELFPAY ==
[2024-08-13 08:58] LABS: Prostate Specific Antigen 6.73 ng/mL (<0.05-4.0)
== END 2024-08-13 07:14 | disposition home or self-care (01) ==
LOC: HO.LAB 07:13
PROVIDERS: PCP Internal Medicine; Visit Provider Nurse Practitioner Family
DX: R97.20 Elevated prostate specific antigen [PSA] (principal); N40.0 Benign prostatic hyperplasia without lower urinary tract symptoms; Z12.5 Encounter for screening for malignant neoplasm of prostate
CPT/HCPCS: 36415; 84153

== ENCOUNTER 2024-08-16 15:38 | Outpatient (AMB) | payer OTHER, SELFPAY ==
--- NOTE | 2024-08-16 15:58 | MHC.OFFVIS ---
Intake Visit Reasons: 6 month follow up/ PSA Intake Note: Pt presents to the office today for a 6 month follow up/PSA/PVR PVR: 27ml House Worker General Services: House Worker General Present House Worker General Name: Venecia [id number] Allergies No Known Allergies Allergy (Verified 08/16/24 16:10) Medication List - Last Reconciled 08/16/24 by KELLY RiosP- apixaban (Eliquis) 5 mg PO BID blood sugar diagnostic (Nduo.cnTouch Ultra Test strips) As directed cholecalciferol (vitamin D3) (Vitamin D3) 50 mcg PO QAM empagliflozin-metformin 5-1,000 mg ER (Synjardy XR) 1 tab PO BID famotidine 40 mg PO BEDTIME finasteride 5 mg PO DAILY 90 days furosemide 40 mg PO QAM lancets (OneTouch Delica Plus Lancet) As directed losartan 100 mg PO DAILY metoprolol succinate ER 100 mg PO BID pantoprazole 40 mg PO DAILY rosuvastatin 1 tab PO BEDTIME sennosides (Natural Senna Laxative) 8.6 mg PO BEDTIME terazosin 5 mg PO BEDTIME trazodone 50 mg PO BEDTIME HPI Comments Details: Harvinder is a pleasant 74-year-old [place]ese-speaking male patient of Dr Ny who is accompanied by his at [facility] office visit. He has a past medical history of sleep apnea, diabetes, morbid obesity, congestive heart failure, BPH, coronary artery disease, GERD, atrial fibrillation, hypercholesteremia, and hypertension. He presents to the office today for follow-up of his testicular pain and elevated PSA. In discussion with the patient today he reports to be doing and feeling well. During initial visit patient had reported compliance with finasteride and terazosin as ordered however upon review of elevated PSA he did report that he is not taking his urological medications as he does not feel any bothersome urinary issues or concerns. We discussed increase in PSA since prior PSA. We discussed potential causes of elevated PSA. HIPOLITO was performed left side of the prostate was noted to be boggy otherwise no masses or nodules palpated. We discussed the importance of taking medications as prescribed. In office urinalysis results reviewed with the patient today. PVR 27 mL. PSAs are as follows: PSAs: 03/29 3.9, 01/30 4.9, 10/31 5.0, 07/04 2.9, 01/01 2.3, 07/05 3.3, 08/02 3.4, 09/03 6.7 He denies urinary urgency, urinary frequency, incontinence, nocturia, hematuria, dysuria, foul smelling urine, changes to urinary stream, flank pain, fever, and or chills. He is happy with his current voiding parameters. He also has a history of testicular pain. When asked he denies having had any testicular pain. He otherwise offers no other issues or concerns at this time. [facility]LY [facility] Medical History Unable to read or write Sleep apnea Diabetes Lipoma of back Morbid obesity Exertional chest pain Congestive heart failure BPH (benign prostatic hyperplasia) CAD (coronary artery disease) Atrial fibrillation GERD (gastroesophageal reflux disease) High cholesterol HTN (hypertension) Surgical History Status post excision of lipoma (~07/03/21) History of esophagogastroduodenoscopy (EGD) H/O colonoscopy Hx of CABG Family History Mother Cardiac disease Cancer Father Prostate cancer Cardiac disease Social History Household Members: Spouse Housing: Apartment Are you a primary rn primary care to a significant other at home: No Do you presently have visiting nurse or other home services: No Alcohol intake: never Patient Tobacco Use Status: Former Tobacco user Tobacco use type: Cigarette service: No Current occupational status: unemployed Review of Systems Const Reports as per HPI Eyes Reports no additional complaints ENT Reports no additional complaints Card Reports as per HPI Resp Reports as per HPI GI Reports as per HPI Reports as per HPI Musc Reports as per HPI Neuro Reports no additional complaints Psych Reports no additional complaints Kadeem/Lymph Reports no additional complaints Aller/Immun Reports no additional complaints Physical Exam Const General: cooperative, healthy appearing, comfortable, no acute distress, well developed, alert and awake Nutritional Appearance: overweight Orientation/consciousness: patient oriented x3 Limitations: language barrier HEENT Head: Yes normal to inspection, Yes normocephalic and Yes atraumatic Ears: hearing grossly normal bilaterally Eyes General: appearance normal, both eyes and all related structures Neck Neck: Yes normal visual inspection and Yes trachea midline Chest Chest palpation & inspection: normal inspection of the chest Resp Effort & Inspection: normal respiratory effort and able to speak in complete sentences Cardio Rate: regular rate GI Inspection: Yes normal to inspection General: Yes no CVA tenderness Back/Spine/Pelvis Back: no CVA tenderness Skin General skin exam: no rashes or lesions noted Neuro General: patient oriented x3 Extrem General: Yes normal to inspection Psych Appearance: grossly normal and well kempt Mental Status: mental status grossly normal Speech and movement: Normal speech and movement present and Clear speech present Affect: normal affect Attitude: cooperative Thought process: Normal thought process present Thought content: Normal thought content present Insight: Fair insight present (Psych) Judgement: Fair judgement present (Psych) Office Procedures Post Void Residual Post Residual Void Post Void Residual (PVR): 27 [id number] Void Residual by ultrasound Results AMB Urinalysis, Automated UA Leukoctes 0 Candace/uL Last Edit by Marisol Segura CMA on 08/16/24 16:10 UA Nitrite Negative Last Edit by Marisol Segura CMA on 08/16/24 16:10 UA Urobilinogen 0.2 mg/dL Last Edit by Marisol Segura CMA on 08/16/24 16:10 UA Protein 15 mg/dL Last Edit by Marisol Segura CMA on 08/16/24 16:10 UA pH 6.5 Last Edit by Marisol Sgeura CMA on 08/16/24 16:10 UA Blood 0 Mrak/uL Last Edit by Marisol Segura CMA on 08/16/24 16:10 UA Specific [place]bury 1.015 Last Edit by Marisol Segura CMA on 08/16/24 16:10 UA Ketone Negative Last Edit by Marisol Segura CMA on 08/16/24 16:10 UA Bilirubin 0 mg/dL Last Edit by Marisol Segura CMA on 08/16/24 16:10 UA Glucose 0 mg/dL Last Edit by Marisol Segura CMA on 08/16/24 16:10 Results Reviewed Results Reviewed: Laboratory Last Values Urine pH (Auto) 6.5 08/16/24 15:59 Specific [place] (Auto) 1.015 08/16/24 15:59 Urine Protein (Auto) 15 mg/dL 08/16/24 15:59 Glucose (UA)(Auto) 0 mg/dL 08/16/24 15:59 Urine Ketones (Auto) Negative 08/16/24 15:59 Urine Blood (Auto) 0 Mark/uL 08/16/24 15:59 Urine Nitrite (Auto) Negative 08/16/24 15:59 Urine Bilirubin (Auto) 0 mg/dL 08/16/24 15:59 Urine Urobilinogen (Auto) 0.2 mg/dL 08/16/24 15:59 Leukocyte Esterase (Auto) 0 Candace/uL 08/16/24 15:59 Assessment & Plan Assessment & Plan (1) Elevated PSA: Code(s): R97.20 - Elevated prostate specific antigen [PSA] Category: Medical Plan In office urinalysis results reviewed with the patient today; as noted above. PVR 27 mL. Recent PSA results reviewed with the patient today; as noted above. Patient currently denies any bothersome lower urinary tract symptoms. He reports be happy with current voiding parameters. We discussed at length potential causes of elevated PSA and potential for prostatitis given HIPOLITO notes left-side of the prostate boggy. We discussed importance of taking medications as prescribed. Start Bactrim as discussed and prescribed. Continue terazosin and finasteride as prescribed. We discussed redraw of PSA status post completion of antibiotic therapy in 6-8 weeks. Follow-up in 2-3 months with PSA and PVR; or sooner with any issues, concerns, and or questions. Orders: Orders AMB Post Void Residual by ultrasound Today N40.0 - Benign prostatic hyperplasia without lower urinary tract symptoms PSA,Total (Free>4and<10) 6 Weeks R97.20 - Elevated prostate specific antigen [PSA] AMB Urinalysis Automated Today R39.14 - Feeling of incomplete bladder emptying Medications: New sulfamethoxazole-trimethoprim 800-160 mg (Bactrim DS) 1 tab PO BID 28 tabs 0RF 14 days N39.0 - Urinary tract infection, site not specified Changed From terazosin 5 mg PO BEDTIME To terazosin 5 mg PO BEDTIME 90 caps 0RF 90 days Refilled finasteride 5 mg PO DAILY 90 tabs 1RF 90 days N13.8 - Other obstructive and reflux uropathy, N40.1 - Benign prostatic hyperplasia with lower urinary tract symptoms, R33.9 - Retention of urine, unspecified Patient Instructions: The patient had an opportunity to ask questions regarding the treatment plan. All questions were answered. Physical exam, labs, and imaging were discussed and reviewed in detail. As well as risks, benefits, and discussion of treatment choices. No major barriers to understanding were identified. The patient expressed understanding and agreement with the above treatment plan. The patient was made aware they should contact our office by phone for worsening of their current condition, the appearance of new symptoms, or with any questions or concerns. Compliance is encouraged with any medications and follow up testing that is ordered. It is a privilege to be allowed the opportunity to participate in? your urological care.? Again, if you have any questions or concerns If you have any questions or concerns please do not hesitate to contact me. The office is [phone]. This note is constructed using voice recognition software. While every effort has been made to ensure accuracy job placement officer errors may have been included. Yours sincerely, MUKUND Rios Coding Level of Care Code Est Pt Level 4 (25167) Complex EM visit Add On G2211 Diagnoses Elevated PSA R97.20 CPT Codes Post Residual Void - PVR CPT Code: 59345-Yaab Void Residual by ultrasound ([id number]) Time Spent (min) 35
--- OUTSIDE RECORDS SUMMARY | 2024-08-16 18:23 | XMS_ITS | Encounter Summary ---
Author Organization [employer] Address [address] [facility] [address] [place] [address] Care Team Providers Care Hot Mill Roller Name Role Phone Jeff Arndt MD Primary Care Provide r Marco Hays PharmD Unavailable [phone] Encounter Details Date Type Department Care Team (Late st Contact Info) Description 08/13/2024 Orders Only GENERIC EXTERNAL DATA DEPARTMENT Provider, [...] t he electric, gas, oil or water [employer] threatened to shut off services in your home? No 02/24/2023 Depression Answer Date Recorded Patient Health Questionnaire-2 Score 0 08/05/2023 Sex and Gender Information Value Date Recorded Sex Assigned at Male 03/11/2022 10:17 AM EDT Legal Sex Male 10:17 AM EDT Gender Identity Male 03/11/2022 10:17 AM EDT Sexual Orientation Choose not to disclose 2021 10:17 AM EDT documented as of this encounter Miscellaneous Notes * Result Encounter Note - JAMSHID Bell - 08/13/2024 8:59 AM EDT Pt following w/ urology, last visit 08/16/24 documented in this encounter Plan of Treatment Upcoming Encounters Date Type Department Care Team (Late st Contact Info) Description 08/17/2024 11:00 AM EDT Medication Management [facility] MED[facility] [address] [place] [address] Billie Phan PharmD [address] [place] [address] 09/02/2024 1:00 PM EDT Office Visit [facility] ADULT DENTAL [address] [place] [address] Morena, Kristen [address] [place] [address] documented as of this encounter Goals Goal [...] Procedure Name Priority Date/Time Associated Diagnosis Comments PSA, TOTAL Routine 08/13/2024 7:24 AM EDT documented in this encounter Results * (ABNORMAL) PSA,Total (08/13/2024 7:24 AM EDT) Prostate Specific Antigen 6.73(H) <0.05 - 4.0 ng/mL [facility] Comment:PSA methodology: Payam Solano i ChemiluminescentMicroparticle Immunoassay (CMIA) 08/13/2024 7:24 AM EDT 08/13/2024 7:24 AM EDT us Generic External Data Provider LAB BLOOD ORDERAB LES Final Result [facility] [address] [place] [address] [phone] documented in this encounter Visit Diagnoses Not on filedocumented in this encounter Additional Health Concerns Assessment Noted Time PHQ-9 Depression Total Score: 0 08/05/19 24 9:31 AM EDT documented as of this encounter Care Teams Hot Mill Roller Relationship Specialty Start Date End Date Jeff Arndt MD [address] [place] [address] PCP - General Internal Medicine 12/14/13 Marco Hays PharmD [address] [place] [address] Pharmacist Internal Medicine 07/24/23 documented as of this encounter
--- OUTSIDE RECORDS SUMMARY | 2024-08-16 18:23 | XMS_ITS | Encounter Summary ---
Author Organization [employer] Address [address] [facility] [address] [place] [address] Care Team Providers Care Operations Support Manager Name Role Phone Jeff Arndt MD Primary Care Provide r Marco Hays PharmD Unavailable [phone] Encounter Details Date Type Department Care Team (Late st Contact Info) Description 09/16/2022 Orders Only [facility] [address] [place] [address] Coty Sanchez LPN Social History Tobacco Use [...] Description 08/17/2024 11:00 AM EDT Medication Management [facility] [address] [place] [address] Billie Phan, PharmD [address] [place] [address] 09/02/2024 1:00 PM EDT Office Visit [facility] ADULT DENTAL [address] [place] [address] Kristen Berg [address] [place] [address] documented as of this encounter Procedures Procedure [...] PM EDT Narrative 10/24/2022 4:39 PM EDT ?[facility] ?[address] ?[place] [address] ?XRay Report ? Signed ? Patient: Espinosa,Harvinder ?MR#: [id number] ?? 8 ? : 1950 ?Acct:[id number] ? Age/Sex: 72 / M ?ADM Date: 10/08/22 ? Loc: HO.HHCX ? Attending Dr: Jeff Ny MD ? Ordering Physician: Jeff Ny MD ?? Date of Service: 10/08/22 ?? Procedure(s): XR lumbar spine 4V min ?? Accession Number(s): [id number] ? cc: Jeff Ny MD ? EXAMINATION: [...] 1636 ? DD/ 1238 ? TD/TT: ? Roofing Superintendent: SS ? Procedure Note Donsilvanoter, Image - 11/06/[address] [address] XRay Report Signed Patient: Sangita Espinosa#: [id number] 8 : 9Acct:[id number] Age/Sex: 72 / MADM Date: 10/08/22 Loc: HO.HHCX Attending Dr: Jeff Ny MD Ordering Physician: Jeff Ny MD Date of Service: 10/08/22 Procedure(s): XR lumbar spine 4V min Accession Number(s): [id number] cc: Jeff Ny MD EXAMINATION: XR THORACIC [...] in OV> 10/24/22 1636 DD/ 1238 TD/TT: Roofing Superintendent: SS us [facility] External Provider IMG XR PROCEDURES Final Result * XR Thoracolumbar Spine 2 Views (10/08/2022 12:38 PM EDT) Anatomical Region Laterality Modality Spine, T-spine, L-spine Radiogra phic Imaging 10/08/2022 12:3 8 PM EDT Narrative 10/24/2022 4:39 PM EDT ?[facility] ?[address] ?[place] [address] ?XRay Report ? Signed ? Patient: Espinosa,Harvinder ?MR#: [id number] ?? 8 ? : 1950 ?Acct:[id number] ? Age/Sex: 72 / M ?ADM Date: 10/08/22 ? Loc: HO.HHCX ? Attending Dr: Jeff Ny MD ? Ordering Physician: Jeff Ny MD ?? Date of Service: 10/08/22 ?? Procedure(s): XR thoracic spine 2V ?? Accession Number(s): [id number] ? cc: Jeff Ny MD ? EXAMINATION: [...] 1636 ? DD/ 1238 ? TD/TT: ? Roofing Superintendent: SS ? Procedure Note Donotrodrigointerpreter, Image - 10/24/[address] [address] XRay Report Signed Patient: Sangita Espinosa#: [id number] 8 : 9Acct:[id number] Age/Sex: 72 / MADM Date: 10/08/22 Loc: HO.HHCX Attending Dr: Jeff Ny MD Ordering Physician: Jeff Ny MD Date of Service: 10/08/22 Procedure(s): XR thoracic spine 2V Accession Number(s): [id number] cc: Jeff Ny MD EXAMINATION: XR THORACIC [...] in OV> 10/24/22 1636 DD/ 1238 TD/TT: Roofing Superintendent: RADHA [facility] External Provider IMG XR PROCEDURES Final Result documented in this encounter Visit Diagnoses Not on filedocumented in this encounter Care Teams Operations Support Manager Relationship Specialty Start Date End Date Jeff Arndt MD [address] [place] [address] PCP - General Internal Medicine 12/14/13 Marco Hays, Lisseth [address] [place] [address] Pharmacist Internal Medicine 07/24/23 documented as of this encounter
--- OUTSIDE RECORDS SUMMARY | 2024-08-16 18:23 | XMS_ITS | Encounter Summary ---
Author Organization [employer] Address [address] [place] [address] [address] [place] [address] Care Team Providers Care Base Filler Name Role Phone Jeff Arndt MD Primary Care Provide r Marco Hays PharmD Unavailable [phone] Encounter Details Date Type Department Care Team (Late st Contact Info) Description 05/22/[address] [facility] [address] [place] [address] Rain Parada LPN Social History Tobacco Use [...] Description 08/17/2024 11:00 AM EDT Medication Management [facility] [address] [place] [address] Billie Phan, PharmD [address] [place] [address] 09/02/2024 1:00 PM EDT Office Visit [facility] ADULT DENTAL [address] [place] [address] Kristen Berg [address] [place] [address] documented as of this encounter Visit Diagnoses Not on filedocumented in this encounter Care Teams Base Filler Relationship Specialty Start Date End Date Jeff Arndt MD [address] [place] [address] PCP - General Internal Medicine 12/14/13 Marco Hays, CarlaD [address] [place] [address] Pharmacist Internal Medicine 07/24/23 documented as of this encounter
--- OUTSIDE RECORDS SUMMARY | 2024-08-16 18:23 | XMS_ITS | Clinical Summary ---
Author Organization [facility] Address [address] [place] [address] Care Team Providers Care Motor Vehicle Parts Interpreter Name Role Phone Unavailable Primary Care Provider [...]
--- OUTSIDE RECORDS SUMMARY | 2024-08-16 18:23 | XMS_ITS | Encounter Summary ---
Author Organization [employer] Address [address] [place] [address] [address] [place] [address] Care Team Providers Care Looper Operator Name Role Phone Jeff Arndt MD Primary Care Provide r Marco Hays PharmD Unavailable [phone] Encounter Details Date Type Department Care Team (Late st Contact Info) Description 07/24/2022 Orders Only [facility] [address] [place] [address] Rain Parada LPN Social History Tobacco Use [...] Description 08/17/2024 11:00 AM EDT Medication Management [facility] [address] [place] [address] Billie Phan, PharmD [address] [place] [address] 09/02/2024 1:00 PM EDT Office Visit [facility] ADULT DENTAL [address] [place] [address] Kristen Berg [address] [place] [address] documented as of this encounter Visit Diagnoses Not on filedocumented in this encounter Care Teams Looper Operator Relationship Specialty Start Date End Date Jeff Arndt MD [address] [place] [address] PCP - General Internal Medicine 12/14/13 Marco Hays, CarlaD [address] [place] [address] Pharmacist Internal Medicine 07/24/23 documented as of this encounter
--- OUTSIDE RECORDS SUMMARY | 2024-08-16 18:23 | XMS_ITS | Clinical Summary ---
Author Organization [employer] Address [address] [facility] 7t [place] [address] Care Team Providers Care Echocardiography Tech Name Role Phone Jeff Arndt MD Primary Care Provide r Marco Hays PharmD Unavailable [phone] Allergies Active Allergy Reactions Criticality Noted Date Comments Lisinopril Cough Terazosin Hcl Headache,Dizziness,M ent al status change Medium 10/20/2023 reports that patient is not himself when he takes this medication. Additionally, experiences dizziness and headaches with this medication Medications D3 Super Strength 50 MCG (1999 UT) capsule Take 50 mcg by mouth in [...] 30 MINUTES BEFORE BREAKFAST 11/06/19 23 Active Oral Medication Containers misc USE DIRECTED [...] BEDTIME 60 tablet 3 06/15/19 25 Active rosuvastatin (Crestor) 40 MG tabletIndications :Mixed hyperlipidemia TAKE 1 TABLET BY MOUTH AT BEDTIME 90 tablet 3 08/04/19 25 Active Lancets (OneTouch Delica Plus [id number]) misc TEST BLOOD SUGAR ONCE DAILY DIRECTED 100 each 08/04/19 25 Active OneTouch Ultra Test test strip TEST BLOOD SUGAR EVERY DAY DIRECTED 100 strip 08/04/19 25 Active losartan (Cozaar) 100 MG tablet TAKE 1 TABLET BY MOUTH EVERY MORNING 90 tablet 3 08/04/19 25 Active Lancets (OneTouch Delica Plus [id number]) misc TEST BLOOD SUGAR ONCE DAILY DIRECTED 100 each 05/22/19 24 025 Discontinued OneTouch Ultra test strip TEST BLOOD SUGAR EVERY DAY DIRECTED 100 strip 05/22/19 24 025 Discontinued rosuvastatin (Crestor) 40 MG tabletIndications :Mixed hyperlipidemia TAKE 1 TABLET BY MOUTH AT BEDTIME 90 tablet 3 05/22/19 24 025 Discontinued losartan (Cozaar) 100 MG tablet TAKE 1 TABLET BY MOUTH EVERY MORNING 90 tablet 05/22/19 24 025 Discontinued Active Problems Problem Noted [...] the anterior longitudinal ligament. Patient evaluated at [facility], recommended PT, if no improvement they recommended to consider steroid injections Assessment & Plan (01/21/2023 11:58 AM EDT): Pt with c/o lower thoracic and lumbar back pain for months intensity 5/10 On exam evidence of muscle spasm Plain films showed: Degenerative changes in the thoracic and lumbar spine with fusion of the anterior longitudinal ligament. Patient evaluated at [facility], already scheduled for PT Assessment & Plan (11/05/2022 11:08 AM EDT): Pt with c/o lower thoracic and lumbar back pain for months intensity 5/10 On exam evidence of muscle spasm Plain films showed: Degenerative changes in the thoracic and lumbar spine with fusion of the anterior longitudinal ligament. Plan: Will refer to [facility] Assessment & Plan (10/08/2022 12:27 PM [...] the anterior longitudinal ligament. Patient evaluated at [facility], already scheduled for PT Assessment & Plan (11/05/2022 11:07 AM EDT): Pt here for a follow up with c/o lower thoracic and lumbar back pain for months intensity 5/10 On exam evidence of muscle spasm Plain films showed: Degenerative changes in the thoracic and lumbar spine with fusion of the anterior longitudinal ligament. Plan: Will refer to [facility] Assessment & Plan (10/08/2022 12:28 PM [...] daily Will continue to f/u with his Assortment Planner, Last seen 01/2023 ECHO done 10/05/2021 showed Low Normal LV systolic function LVEF 50-55% with elevated filling pressures, mild to mod MR, mod elevated Assessment & Plan (03/25/2023 12:45 PM EST): pt here for a f/u Pt denies any sob, no chest pain Back on Lasix 60 mg po daily Will continue to f/u with his Assortment Planner, Last seen 01/2023 ECHO done 10/05/2021 showed Low Normal LV systolic function LVEF 50-55% with elevated filling pressures, mild to mod MR, mod elevated Assessment & Plan (10/08/2022 10:39 AM EDT): pt here for a f/u Pt denies any sob, no chest pain Back on Lasix 60 mg po daily Will continue to f/u with his Assortment Planner Last seen 02/20/2022 They recommended 3 month [...] recommended 3 month f/u with repeat ECHO [facility] care 09/27/2022 Assessment & Plan (10/21/2023 10:48 AM EDT): PSA: down to 3.4 07/2023 under the care of Urology Colonoscopy 03/12 2017 Assessment & Plan (10/08/2022 10:34 AM EDT): PSA: 4.89 under the care of Urology Colonoscopy 03/12 2017 Gastroesophageal reflux disease 11/18/2013 Assessment & Plan (10/08/2022 10:41 AM EDT): Pt with recurrent c/o severe heartburn In the past he was seen at [facility] on 11/17/2012 after pt c/o heartburn. Pt underwent an EGD. on 02/18/2013 that showed reflux esophagitis and antral gastritis. Dr Hansen recommended repeat colonoscopy 2017 Currently on Omeprazole 40 mg po daily Previous visit he was referred back to [facility] for repeat EGD, unfortunately his new insurance does not contract with [facility] He is now followed at [facility] last note 12/04/2021 Atherosclerosis of coronary artery 04/09/2012 Assessment & Plan (10/21/2023 10:46 AM EDT): Pt denies any recent c/o Chest pain Pt has CAD S/P CABG in 2002. Pt under the care of [facility]. Last seen 09/18/2023 Assessment & Plan (03/25/2023 12:46 PM EST): Pt denies any recent c/o Chest pain Pt has CAD S/P CABG in 2002. Pt under the care of [facility]. Last seen 01/2023 Assessment & Plan (10/08/2022 10:39 AM EDT): Pt denies any recent c/o Chest pain Pt has CAD S/P CABG in 2002. Pt under the care of [facility]. Last seen 02/20/2022 They recommended 3 month [...] Terazosin. Patient was supposed to discuss with urologist/computer science teacher but doesn't seem to have happened. Adherence [...] after he was started on Lasix) On [employer] and attending [facility] Most recent electrolytes, Bun [...] comorbidity of: DM, HTN Referred to the [facility] weight management center Assessment & Plan (05/27/2023 9:13 AM EST): Patient has been counseled and educated about diet and exercise. Personal goal of weight loss discussedPatient has comorbidity of: DM, HTN Will refer to the [facility] weight management center Obstructive sleep apnea syndrome [...] Encounters Date Type Department Care Team Description 08/13/2024 Orders Only GENERIC EXTERNAL DATA DEPARTMENT Provider, Generic External Data 07/29/2024 Refill [facility] [address], [place] [address] Jeff Arndt MD Mixed hyperlipidemia 07/20/2024 Telephone [facility] [address], [place] [address] Jeff Arndt MD FYI 06/22/2024 Orders Only GENERIC EXTERNAL DATA DEPARTMENT Provider, Generic External Data 06/12/2024 Refill [facility] [address], [place] [address] Jeff Arndt MD Atrial fibrillation, unspecified type (CMS/[facility]) from Last 3 Months Immunizations Name Administration [...] 11:00 AM EDT Medication Management [facility] [address] [place] [address] Billie Phan, PharmD [address] [place] [address] 09/02/2024 1:00 PM EDT Office Visit [facility] ADULT DENTAL [address] [place] [address] Kristen Berg [address] [place] [address] Health Maintenance Due Date Last Done Comments [...] Screening 05/03/2025 05/03/2024 Dental X-Ray: Bitewings 05/04/2025 05/03/20 24, 01/15/2024, 10/15/2013, Additional history exists Dental X-Ray: Full Mouth 01/15/2027 01/15/2024, 12/0 12/2010 Colonoscopy 06/22/2034 03/12/2017 Colorectal Cancer Screening 06/22/2034 Pneumococcal Vaccine: 50+ Years Completed 10/22/2016, 04/04/2015, 09/15/2003 Zoster Vaccines Completed 03/26/2019, 12/2017, 06/16/2014 Hepatitis C Screening Completed 10/29/2022 [...] Blood Pressure 142/70(2023 8:41 AM EST) No Macro Hays PharmD Blood Pressure < 140/90 Blood Pressure Hypertension 142/70(2023 8:41 AM EST) No Marco Hays PharmD Patient will adhere to medication regimen General Improving(02/2024 11:16 AM EDT) No Marco Hays PharmD Procedures Procedure Name Priority Date/Time Associated Diagnosis Comments PSA, TOTAL Routine 08/13/2024 7:24 AM EDT HEMATOXYLIN AND EOSIN STAIN Routine 06/22/2024 9:23 AM EST GLUCOSE, WHOLE BLOOD Routine 06/22/2024 8:47 AM EST BITEWINGS - 4 RADIOGRAPHIC IMAGES Routine 05/03/2024 9:00 AM EST PROPHYLAXIS - ADULT Routine 02/25/2024 3 :00 PM EDT Dental calculus Periodontal disease POCT GLYCATED HEMOGLOBIN, TOTAL Routine 02/12/2024 10:22 AM EDT Type 2 diabetes mellitus without complication, without long-term current use of insulin (CMS/HCC) INTRAORAL - COMPLETE SERIES OF RADIOGRAPHIC IMAGES [...] complication, without long-term current use of insulin (CMS/HCC) HEPATITIS C AB W/REFL TO HCV RNA, QN, PCR Routine 10/29/2022 10:18 AM EDT Preventative health care LIPID PANEL WITH REFLEX TO DIRECT LDL Routine 10/29/2022 10:18 AM EDT Mixed hyperlipidemia HM COLONOSCOPY Routine 03/12/2017 from Last 3 Months or Most Recently Relevant to Health Maintenance Results * (ABNORMAL) PSA,Total (08/13/2024 7:24 AM EDT) Prostate Specific Antigen 6.73(H) <0.05 - 4.0 ng/mL [facility] Comment:PSA methodology: Abb ruth Alisharonty i ChemiluminescentMicroparticle Immunoassay (CMIA) 08/13/2024 7:24 AM EDT 08/13/2024 7:24 AM EDT us Generic External Data Provider LAB BLOOD ORDERAB LES Final Result [facility] [address] [place] [phone] * Hematoxylin and Eosin Stain (06/22/2024 9:23 AM EST) 06/22/2024 9:23 AM EST 06/22/2024 10:34 AM EST Narrative [facility] - 06/24/2024 4:30 PM EST ----- ------- Name: Harvinder Gaming ?Age/Sex: 74/M ? : 1950 Unit#: [id number] ?? Attend Dr: Destinee Levi MD ?Re06/22/24 ?Status: DEP SDC ? Location: HO.SSS ?Disch: ? ----- ------- SPEC : [id number] ?RECD: 06/22/24-1033 ? STATUS: ??SOUT ? REQ NUM: [id number] ? SUMIT: 06/22/24-922 ? SUBM DR: Destinee Levi MD ? ENTERED: ??06/22/24-1101 ?SP TYPE: Surgical ? OTHR DR: Jeff Ny MD ?? ORDERED: ??HE /12, Gross Micro L4/5, IHC, Special st. 2/2, [...] Gaming ?Age/Sex: 74/M ? : 1950 Unit#: [id number] ?? Attend Dr: Destinee Levi MD ?Re06/22/24 ?Status: DEP SDC ? Location: HO.SSS ?Disch: ? ----- ------- SPEC : [id number] ?RECD: 06/22/24-1033 ? STATUS: ??SOUT ? REQ NUM: [id number] ? SUMIT: 06/22/24-922 ? SUBM DR: Destinee [...] microscopic examination, 2 pieces in cassette E. ??[facility] Special studies ordered and performed: Immunostain for H. pylori on B; AB/PAS stains on A and B Copies To: ?? Jeff Ny MD ?? [facility] ?? [address] ?? [place] [address] ?? [phone] ?? Destinee Levi MD ?? [facility] ?? [address] ?? [place] [address] ?? [phone] ----- ------- Signed (signature on file) Rashid Hughes MD 06/24/24 1630 ? ----- ------- ? END OF REPORT ? Generic External Data Provider LAB BLOOD ORDERAB LES Final Result Performing Organization Address [facility] de Phone Number [facility] [address] [place] [address] [phone] * Glucose, Whole Blood (06/22/2024 8:47 AM EST) [facility] Glucose, Whole Blood 105 60 - 115 mg/dL [facility] Comment:METER #: [id number] 06/22/2024 8:47 AM EST 06/22/2024 8:56 AM EST Generic External Data Provider LAB BLOOD ORDERAB LES Final Result Performing Organization Address [facility] de Phone Number [facility] [address] [place] [address] [phone] * (ABNORMAL) POCT HGB A1C (02/12/2024 10:22 AM EDT) Pathologist [facility] Hemoglobin A1C 6.8(A) 4.0 - 6.0 % QC Media Lot # [id number] Lot# Expiration Date Blood 02/12/2024 10:2 2 AM EDT Jeff Bazzi MD POINT OF CARE TEST EN TER/EDIT ORDERABLES Final Result * Albumin, Random Urine W/Creatinine (06/02/2023 3:16 PM EST) Creatinine, Urine 207.30 mg/dL [facility] Microalbumin Urine 17.0 mg/L [facility] Microalbum Creatinine Ratio Ur 8.2 <30 ug/mg cr [facility] Comment:Albumin/Creatinine R atio Reference Ranges: Normal: < 30 ug/mg creatinine Microalbuminuria: 30 - 300 ug/mg creatinineClinical Albuminuria: > 300 ug/mg creatinine Urine (Urine, Random) 06/02/2023 3:16 PM EST 06/02/2023 4:16 PM EST Jeff Bazzi MD LAB URINE ORDERABLES Final Result Performing Organization Address City/State/[facility] Co de Phone Number [facility] [address] [place] [phone] * Lipid Panel with Reflex to Direct LDL (10/29/2022 10:18 AM EDT) Cholesterol, Total 132 <200 mg/dL [place] [facility] HDL Cholesterol 46 > OR = 40 mg/dL [place] [facility] Triglycerides 88 <150 mg/dL [facility] LDL Cholesterol 69 mg/dL (calc) [facility] Comment: Reference range: <100 Desirable range <100 mg/dL for primary prevention; ?? <70 mg/dL for patients with CHD or diabetic patients with > or = 2 CHD risk factors. LDL-C is now calculated using the Ayush calculation, which is a validated novel method providing better accuracy than the Friedewald equation in the estimation of LDL-C. Roger GARCIA et al. FRAN. 2013;310(19): 6293-5062 (http://education.Web Wonks.TripChamp/faq/QKP837) Chol/HDLC Ratio 2.9 <5.0 (calc) [place] [facility] Non-HDL Cholesterol 86 <130 mg/dL (calc) [place] [facility] Comment: For patients with diabetes plus 1 major ASCVD risk factor, treating to a non-HDL-C goal of <100 mg/dL (LDL-C of <70 mg/dL) is considered a therapeutic option. 10/29/2022 10:1 8 AM EDT 10/29/2022 10:18 AM EDT Narrative [facility] - 10/29/2022 10:25 PM EDT FASTING:YES FASTING: YES us Jeff Bazzi MD LAB BLOOD ORDERABLES Final Result Performing Organization Address [facility] Co de Phone Number [address], [place] [address] [place] [employer] [phone] * Hepatitis C Antibody with Reflex to HCV, RNA, Quantitative, Real-Time PCR (10/29/2022 10:18 AM EDT) Hepatitis C Antibody NON-REACT PRUDENCE NON-REACT PRUDENCE [facility] [place] [facility] Comment: HCV antibody was non-reactive. There is no laboratory evidence of HCV infection. In most cases, no further action is required. However, if recent HCV exposure is suspected, a test for HCV RNA (test code 65409) is suggested. For additional information please refer to http://education.Intelligent Portal Systems/faq/LHA18k1 (This link is being provided for informational/ educational purposes only.) Blood Venous blood specimen / Unknown 10/29/2022 10:18 AM EDT 10/29/2022 10:18 AM EDT Narrative [facility] - 10/29/2022 10:25 PM EDT FASTING:YES FASTING: YES us Jeff Bazzi MD LAB BLOOD ORDERABLES Final Result Performing Organization Address [facility] Co de Phone Number [address], [place] [address] [place] [facility] [address] [place] [phone] * Colonoscopy (03/12/2017) Colonoscopy Normal Normal 03/12/2017 us Historical Provider HEALTH MAINTENANCE Edited Result - Final from Last 3 Months or Most Recently Relevant to Health Maintenance Insurance [facility] * Guarantor: Harvinder Gaming Account Type Relation to Patient Date of Phone Billing Address Personal/Family Self [address] [place] Advance Directives Documents on File Type Date Recorded Patient Vault Attendant Expl anation Advance Directives and Livin g Will 02/10/2023 Health Care Proxy Care Teams Echocardiography Tech Relationship Specialty Start Date End Date Jeff Arndt MD [address] [place] [address] PCP - General Internal Medicine 12/14/13 Marco Hays, Lisseth [address] [place] [phone] Pharmacist Internal Medicine 07/24/23
--- OUTSIDE RECORDS SUMMARY | 2024-08-16 18:23 | XMS_ITS | Encounter Summary ---
Author Organization [employer] Address [address] [facility] 7 [place] [address] Care Team Providers Care Blasting Entryman Name Role Phone Jeff Arndt MD Primary Care Provide r Marco Hays PharmD Unavailable [phone] Encounter Details Date Type Department Care Team (Late st Contact Info) Description 09/12/2022 Abstract [facility] [address] [place] [address] Jeff Arndt MD [address] [place], [place] [phone] Social History Tobacco Use Types Packs/Day Years [...] Description 08/17/2024 11:00 AM EDT Medication Management [facility] [address] [place] [address] Billie Phan, PharmD [address] [place] [address] 09/02/2024 1:00 PM EDT Office Visit [facility] ADULT DENTAL [address] [place] [address] Kristen Berg [address] [place] [address] documented as of this encounter Procedures Procedure Name Priority Date/Time Associated Diagnosis Comments COLONOSCOPY Routine 03/12/2017 documented in this encounter Results * Colonoscopy (03/12/2017) Colonoscopy Normal Normal 03/12/2017 us Historical Provider [email or web address] MAINTENANCE Edited Result - Final documented in this encounter Visit Diagnoses Not on filedocumented in this encounter Care Teams Blasting Entryman Relationship Specialty Start Date End Date Jeff Arndt MD [address] [place] [address] PCP - General Internal Medicine 12/14/13 Marco Hays PharmD [address] [place] [address] Pharmacist Internal Medicine 07/24/23 documented as of this encounter
--- OUTSIDE RECORDS SUMMARY | 2024-08-16 18:23 | XMS_ITS | Encounter Summary ---
Author Organization [employer] Address [address] [facility] 7t [place] [address] Care Team Providers Care Sales Agent Protective Service Name Role Phone Jeff Arndt MD Primary Care Provide r Marco Hays PharmD Unavailable [phone] Encounter Details Date Type Department Care Team (Late st Contact Info) Description 05/20/2022 Orders Only [facility] [address] [place] [address] Coty Sanchez LPN Social History Tobacco Use [...] 11:00 AM EDT Medication Management [facility] [address] [place] [address] Billie Phan, PharmD [address] [place] [address] 09/02/2024 1:00 PM EDT Office Visit [facility] ADULT DENTAL [address] [place] [address] Kristen Berg [address] [place] [address] documented as of this encounter Visit Diagnoses Not on filedocumented in this encounter Care Teams Sales Agent Protective Service Relationship Specialty Start Date End Date Jeff Arndt MD [address] [place] [address] PCP - General Internal Medicine 12/14/13 Marco Hays, Lisseth [address] [place] [address] Pharmacist Internal Medicine 07/24/23 documented as of this encounter
== END 2024-08-16 16:35 | disposition home or self-care (01) ==
LOC: HO.HUSH 15:39
PROVIDERS: PCP Internal Medicine; Visit Provider Nurse Practitioner Family
DX: R39.14 Feeling of incomplete bladder emptying (principal); R97.20 Elevated prostate specific antigen [PSA]
CPT/HCPCS: 99214; G2211

== ENCOUNTER → 2024-08-16 15:38 | Outpatient (BNVA) | payer OTHER, SELFPAY | PROVIDERS: PCP Internal Medicine; Visit Provider Nurse Practitioner Family | DX: N40.1 Benign prostatic hyperplasia with lower urinary tract symptoms (principal); R33.8 Other retention of urine; N13.8 Other obstructive and reflux uropathy; N39.0 Urinary tract infection, site not specified; R97.20 Elevated prostate specific antigen [PSA] | CPT/HCPCS: 51798; 81003; 99212 ==

== ENCOUNTER 2024-09-28 14:32 | Outpatient (AMB) | payer OTHER, SELFPAY ==
[2024-09-28 15:19] VITALS: BP 128/84; PULSE 52; O2SAT 98; BMI 46.6
--- NOTE | 2024-09-28 15:19 | A.OFFVIS_ITS ---
Vital Signs 09/28/24 15:19 Height 5 ft 6 in Weight 289 lb BMI 46.6 BP 128/84 Blood Pressure Location Lt brachial Position Sitting Pulse 52 Pulse Source Pulse Oximeter Pulse Oximetry (%) 98 Oxygen Delivery Method Room Air Intake Visit Reasons: Follow up Intake Note: Patient presents follow up MARTELL. Compliance in chart(days, >=4hrs-13 days, Median Pressure-9.0, Median Leaks- 6.9, AHI-6.2). Animal Cruelty Investigator Required: Yes Animal Cruelty Investigator Services: Animal Cruelty Investigator Present Animal Cruelty Investigator Name: Nancy [id number] Information Interpreted: non-clinical & clinical Accompanied by: Spouse Allergies No Known Allergies Allergy (Verified 09/28/24 15:25) HPI Comments Details: 74 y/o Danish speaking male with h/o CHF presents for f/u of martell. His is with him and assists with history today. Animal Cruelty Investigator on IPAD The PSG sleep study result was significant for moderate degree of sleep apnea. The AHI was 19/hr and oxygen quyen was 90%. Titration report 12/25/2022 41 arousals 8.8/hr with PLMS MARTELL CPAP [id number] with large f20 face mask is recommended Pt reports that he was diagnosed with MARTELL 15 years ago, and has difficulties with the pressures blowing on his face, he feels like he is suffocating. His says he snores very loudly and takes of the cpap mask in his sleep, and wakes up 2-3 times for the bathroom at night and is fatigued during the days. He used to use CPAP, but the old CPAP was damaged and he stopped using it. Pt was recommended to have titration study but not happened and he did not have new CPAP. REM sleep was not recorded which may underestimate the severity of his sleep apnea. He has RLS and moves his feet all night long, he has difficulty falling asleep due to the sensations in his feet bilaterally. He wears compression socks o ccasionally due to the edema, patient education provided put his feet up for 2 hours and wear compression socks for 2 hours daily at a minimum. His memory is poor he constantly forgets tasks, names and what he is doing at the moment. His mood is stable. His diet is okay, he has T2DM, being managed on insulin. He is not a smoker, does not drink alcohol. [facility] Medical History Unable to read or write Sleep apnea Diabetes Lipoma of back Morbid obesity Exertional chest pain Congestive heart failure BPH (benign prostatic hyperplasia) CAD (coronary artery disease) Atrial fibrillation GERD (gastroesophageal reflux disease) High cholesterol HTN (hypertension) Surgical History Status post excision of lipoma (~07/03/21) History of esophagogastroduodenoscopy (EGD) H/O colonoscopy Hx of CABG Family History Mother Cardiac disease Cancer Father Prostate cancer Cardiac disease Social History Household Members: Spouse Housing: Apartment Are you a primary daycare director to a significant other at home: No Do you presently have visiting nurse or other home services: No Alcohol intake: never Patient Tobacco Use Status: Former Tobacco user Tobacco use type: Cigarette service: No Current occupational status: unemployed Physical Exam Vital Signs: Last Vital Signs Pulse 52 09/28/24 15:19 BP 128/84 09/28/24 15:19 Pulse Ox 98 09/28/24 15:19 Oxygen Delivery Method Room Air 09/28/24 15:19 BMI result Body Mass Index 46.6 Const General: cooperative, comfortable and no acute distress Nutritional Appearance: obese Orientation/consciousness: patient oriented x3 HEENT Face and sinus: Yes face symmetric Eyes Pupils: Equal, round and reactive pupils present Resp Effort & Inspection: normal respiratory effort and able to speak in complete sentences Neuro General: patient oriented x3 and moves all extremities Cranial nerves: Yes Facial sensation intact/muscles of mastication intact, Yes Equal, round and reactive pupils present, Yes Normal facial strength present, Yes Midline tongue present, Yes Ability to bilaterally rotate head present and Yes Ability to bilaterally elevate shoulders present Gait exam (Neuro): Normal gait present and Assistive device used Results Reviewed Results Reviewed: Titration report 12/25/2022 41 arousals 8.8/hr with PLMS MARTELL CPAP [id number] with large f20 face mask is recommended. Assessment & Plan Assessment & Plan (1) Excessive daytime sleepiness: Code(s): G47.19 - Other hypersomnia Category: Medical Plan MARTELL in lab titration to determine pressures for cpap therapy continuation. Reviewed risk factors of hypertension when not compliant with cpap therapy with patient and today. RLS continue to use magnilife cream otc for RLS, numbness tingling and spasm. May take magnesium 400mg PO at night and b6 200mg at night. May use compression stockings and elevate feet for 2-3 hours daily for bilateral pitting edema. Will f/u in 3 months for therapy compliance, once patient has supplies needed and new cpap machine. Orders: Orders Complete Blood Count no Diff Today G47.19 - Other hypersomnia Comprehensive Met. Panel Today G47.19 - Other hypersomnia Ferritin Today G47.19 - Other hypersomnia Hemoglobin A1c Today G47.19 - Other hypersomnia Magnesium Today G47.19 - Other hypersomnia Lipid Panel with Reflex Today G47.19 - Other hypersomnia TSH reflex Free T4 Today G47.19 - Other hypersomnia Methylmalonic Acid Today G47.19 - Other hypersomnia, G47.9 - Sleep disorder, unspecified, R53.83 - Other fatigue RT PSG in-lab sleep titration 09/28/24 G47.33 - Obstructive sleep apnea (adult) (pediatric) Homocysteine Today G47.19 - Other hypersomnia, G47.9 - Sleep disorder, unspe cified, R53.83 - Other fatigue Vitamin B12 and Folate Today G47.19 - Other hypersomnia Vitamin D 25-OH Total Today G47.19 - Other hypersomnia Patient Instructions: Sleep Hygiene provided: set a scheduled bedtime and wake time to help regulate the circadian rhythm and balance the release of pituitary hormones. Sleep in a dark room, temperatures below 68 degrees, and no devices n bed. Limit caffeinated products 6 hours prior to bed, and limit fluids 2-4 hours prior to bed. Gentle night yoga, diffusing essential oils, and playing soft music can be relaxing. Coding Level of Care Code Est Pt Level 4 (49547) Diagnoses Excessive daytime sleepiness G47.19
--- OUTSIDE RECORDS SUMMARY | 2024-09-28 15:56 | XMS_ITS | Encounter Summary ---
Author Organization [employer] Address [address] [facility] [address] [place] [address] Care Team Providers Care Photographic Laboratory Supervisor Name Role Phone Jeff Arndt MD Primary Care Provide r Marco Hays PharmD Unavailable [phone] Billie Phan PharmD Unavailable [phone] Encounter Details Date Type Department Care Team (Late st Contact Info) Description 09/16/2022 Orders Only [facility] CHC MED & PEDS [address] [place], [place] [phone] Coty Sanchez LPN Social History Tobacco Use [...] Care Team (Late st Contact Info) Description 04/12/2025 1:00 PM EST Office Visit [facility] ADULT DENTAL [address] [place], [place] [phone] Morena, Kristen [address] [place], [place] [phone] documented as of this encounter Procedures Procedure [...] PM EDT Narrative 10/24/2022 4:39 PM EDT ?[facility] ?[address] ?[place] [address] ?XRay Report ? Signed ? Patient: Espinosa,Harvinder ?MR#: [id number] ?? 8 ? : 1950 ?Acct:[id number] ? Age/Sex: 72 / M ?ADM Date: 10/08/22 ? Loc: HO.HHCX ? Attending Dr: Jeff Ny MD ? Ordering Physician: Jeff Ny MD ?? Date of Service: 10/08/22 ?? Procedure(s): XR lumbar spine 4V min ?? Accession Number(s): [id number] ? cc: Jeff Ny MD ? EXAMINATION: [...] 1636 ? DD/ 1238 ? TD/TT: ? Insulation Board Head Saw Operator: SS ? Procedure Note Donotuseinterpreter, Image - 11/06/[address] [address] XRay Report Signed Patient: Sangita Espinosa#: [id number] 8 : 9Acct:[id number] Age/Sex: 72 / MADM Date: 10/08/22 Loc: HO.HHCX Attending Dr: Jeff Ny MD Ordering Physician: Jeff Ny MD Date of Service: 10/08/22 Procedure(s): XR lumbar spine 4V min Accession Number(s): [id number] cc: Jeff Ny MD EXAMINATION: XR THORACIC [...] in OV> 10/24/22 1636 DD/ 1238 TD/TT: Insulation Board Head Saw Operator: SS [facility] External Provider IMG XR PROCEDURES Final Result * XR Thoracolumbar Spine 2 Views (10/08/2022 12:38 PM EDT) Anatomical Region Laterality Modality Spine, T-spine, L-spine Radiogra phic Imaging 10/08/2022 12:3 8 PM EDT Narrative 10/24/2022 4:39 PM EDT ?[facility] ?[address] ?[place] [address] ?XRay Report ? Signed ? Patient: Espinosa,Harvinder ?MR#: [id number] ?? 8 ? : 1950 ?Acct:[id number] ? Age/Sex: 72 / M ?ADM Date: 10/08/22 ? Loc: HO.HHCX ? Attending Dr: Jeff Ny MD ? Ordering Physician: Jeff Ny MD ?? Date of Service: 10/08/22 ?? Procedure(s): XR thoracic spine 2V ?? Accession Number(s): [id number] ? cc: Jeff Ny MD ? EXAMINATION: [...] 1636 ? DD/ 1238 ? TD/TT: ? Insulation Board Head Saw Operator: SS ? Procedure Note Jillian, Destiny - 10/24/2022 [facility] [address] [place] [address] XRay Report Signed Patient: Sangita Espinosa#: [id number] 8 : 9Acct:[id number] Age/Sex: 72 / MADM Date: 10/08/22 Loc: HO.HHCX Attending Dr: Jeff Ny MD Ordering Physician: Jeff Ny MD Date of Service: 10/08/22 Procedure(s): XR thoracic spine 2V Accession Number(s): [id number] cc: Jeff Ny MD EXAMINATION: XR THORACIC [...] in OV> 10/24/22 1636 DD/ 1238 TD/TT: Insulation Board Head Saw Operator: RADHA [facility] External Provider IMG XR PROCEDURES Final Result documented in this encounter Visit Diagnoses Not on filedocumented in this encounter Care Teams Photographic Laboratory Supervisor Relationship Specialty Start Date End Date Jeff Arndt MD [address] [place] [address] PCP - General Internal Medicine 12/14/13 Marco Hays, CarlaD [address] [place] [address] Pharmacist Internal Medicine 07/24/23 08/16/24 Billie Phan PharmD [address] [place] [address] Pharmacist Internal Medicine 08/17/24 08/18/24 documented as of this encounter
--- OUTSIDE RECORDS SUMMARY | 2024-09-28 15:56 | XMS_ITS | Encounter Summary ---
Author Organization [email or web address] Address [address] [facility] [address] [place] [address] Care Team Providers Care Bag Sewer Name Role Phone Jeff Arndt MD Primary Care Provide r Marco Hays PharmD Unavailable [phone] Billie Phan PharmD Unavailable [phone] Encounter Details Date Type Department Care Team (Late st Contact Info) Description 05/20/2022 Orders Only [facility] CHC MED & PEDS [address] [place], [place] [phone] Coty Sanchez LPN Social History Tobacco Use [...] Description 04/12/2025 1:00 PM EST Office Visit [facility] ADULT DENTAL [address] [place], [place] [phone] Morena, Kristen [address] [place], [place] [phone] documented as of this encounter Visit Diagnoses Not on filedocumented in this encounter Care Teams Bag Sewer Relationship Specialty Start Date End Date Jeff Arndt MD [address] [place] [address] PCP - General Internal Medicine 12/14/13 Marco Hays, CarlaD [address] [place] [address] Pharmacist Internal Medicine 07/24/23 08/16/24 Billie Phan PharmD [address] [place] [address] Pharmacist Internal Medicine 08/17/24 08/18/24 documented as of this encounter
--- OUTSIDE RECORDS SUMMARY | 2024-09-28 15:56 | XMS_ITS | Clinical Summary ---
Author Organization [facility] Address [address] [place] [address] Care Team Providers Care Automation Tech Name Role Phone Unavailable Primary Care Provider Unavailabl e Social History Tobacco Use Types Packs/Day Years Used Date Smoking Tobacco: Never Assessed Sex and Gender Information Value Date Recorded Sex Assigned at Not on file Legal Sex Male 7:45 PM EDT Gender Identity Not on file Sexual Orientation [...]
--- OUTSIDE RECORDS SUMMARY | 2024-09-28 15:56 | XMS_ITS | Clinical Summary ---
Author Organization [employer] Address [address] [facility] 7t [place] [address] Care Team Providers Care Spray Gun Repairer Helper Name Role Phone Jeff Arndt MD Primary Care Provide r Allergies Active Allergy Reactions Criticality Noted Date Comments Lisinopril Cough Medications D3 Super Strength 50 MCG (1999) capsule Take 50 mcg by mouth in the evening. 3 Active famotidine (Pepcid) 40 MG tablet Take 40 mg by mouth at bedtime. 3 Active metoprolol succinate XL (Toprol-XL) 100 MG 24 hr tablet TAKE 1 TABLET BY MOUTH TWICE DAILY IN THE MORNING AND IN THE EVENING 3 Active finasteride (Proscar) 5 MG tablet Take 5 mg by mouth in the morning. 3 Active senna (Senokot) 8.6 MG tablet Take 1 tablet by mouth at bedtime. 3 Active pantoprazole (ProtoNix) 40 MG EC tablet TAKE 1 TABLET BY MOUTH EVERY MORNING 30 MINUTES BEFORE BREAKFAST 3 Active Oral Medication Containers misc USE DIRECTED 3 Active albuterol (Ventolin HFA) 108 (90 Base) MCG/ACT inhalerIndications :Wheeze Inhale 2 puffs by mouth every 4-6 hours as needed 18 g 4 Active Synjardy XR 5-1000 MG 24 hr tablet TAKE 1 TABLET BY MOUTH TWICE DAILY IN THE MORNING AND IN THE EVENING WITH MEALS 60 tablet 11 4 Active terazosin (Hytrin) 5 MG capsule Take 5 mg by mouth at bedtime. 4 Active furosemide (Lasix) 40 MG tablet Take 1 tablet by mouth 2 times daily. Active Eliquis 5 MG tabletIndications: Atrial fibrillation, unspecified type (CMS/HCC) TAKE 1 TABLET BY MOUTH TWICE DAILY IN THE MORNING AND AT BEDTIME 60 tablet 3 5 Active rosuvastatin (Crestor) 40 MG tabletIndications: Mixed hyperlipidemia TAKE 1 TABLET BY MOUTH AT BEDTIME 90 tablet 3 5 Active Lancets (OneTouch Delica Plus [id number]) misc TEST BLOOD SUGAR ONCE DAILY DIRECTED 100 each 3 5 Active OneTouch Ultra Test test strip TEST BLOOD SUGAR EVERY DAY DIRECTED 100 strip 3 5 Active losartan (Cozaar) 100 MG tablet TAKE 1 TABLET BY MOUTH EVERY MORNING 90 tablet 3 5 Active traZODone (Desyrel) 50 MG tabletIndications: Primary insomnia TAKE 1 TABLET BY MOUTH AT BEDTIME 30 tablet 3 5 Active Active Problems Problem Noted Date Diagnosed Date [...] the anterior longitudinal ligament. 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 Patient evaluated at [facility], already scheduled for PT Assessment & Plan (11/05/2022 11:08 AM EDT): Pt with c/o lower thoracic and lumbar back pain for months intensity 5/10 On exam evidence of muscle spasm Plain films showed: Degenerative changes in the thoracic and lumbar spine with fusion of the anterior longitudinal ligament. Plan: Will refer to [facility] Assessment & Plan (10/08/2022 12:27 PM [...] the anterior longitudinal ligament. Patient evaluated at [facility], already scheduled for PT Assessment & Plan (11/05/2022 11:07 AM EDT): Pt here for a follow up with c/o lower thoracic and lumbar back pain for months intensity 5/10 On exam evidence of muscle spasm Plain films showed: Degenerative changes in the thoracic and lumbar spine with fusion of the anterior longitudinal ligament. Plan: Will refer to [facility] Assessment & Plan (10/08/2022 12:28 PM [...] daily Will continue to f/u with his Braille And Talking Books Clerk, Last seen 01/2023 ECHO done 10/05/2021 showed Low Normal LV systolic function LVEF 50-55% with elevated filling pressures, mild to mod MR, mod elevated Assessment & Plan (03/25/2023 12:45 PM EST): pt here for a f/u Pt denies any sob, no chest pain Back on Lasix 60 mg po daily Will continue to f/u with his Braille [employer] Talking Books Clerk, Last seen 01/2023 ECHO done 10/05/2021 showed Low Normal LV systolic function LVEF 50-55% with elevated filling pressures, mild to mod MR, mod elevated Assessment & Plan (10/08/2022 10:39 AM EDT): pt here for a f/u Pt denies any sob, no chest pain Back on Lasix 60 mg po daily Will continue to f/u with his Braille [employer] Talking Books Clerk Last seen 02/20/2022 They recommended 3 month [...] recommended 3 month f/u with repeat ECHO [facility] care 09/27/2022 Assessment & Plan (10/21/2023 10:48 AM EDT): PSA: down to 3.4 07/2023 under the care of Urology Colonoscopy 03/12 2017 Assessment & Plan (10/08/2022 10:34 AM EDT): PSA: 4.89 under the care of Urology Colonoscopy 03/12 2017 Gastroesophageal reflux disease 11/18/2013 Assessment & Plan (10/08/2022 10:41 AM EDT): Pt with recurrent c/o severe heartburn In the past he was seen at [facility] on 11/17/2012 after pt c/o heartburn. Pt underwent an EGD. on 02/18/2013 that showed reflux esophagitis and antral gastritis. Dr Hansen recommended repeat colonoscopy 2017 Currently on Omeprazole 40 mg po daily Previous visit he was referred back to [facility] for repeat EGD, unfortunately his new insurance does not contract with [facility] He is now followed at [facility] last note 12/04/2021 Atherosclerosis of coronary artery 04/09/2012 Assessment & Plan (10/21/2023 10:46 AM EDT): Pt denies any recent c/o Chest pain Pt has CAD S/P CABG in 2002. Pt under the care of [facility]. Last seen 09/18/2023 Assessment & Plan (03/25/2023 12:46 PM EST): Pt denies any recent c/o Chest pain Pt has CAD S/P CABG in 2002. Pt under the care of [facility]. Last seen 01/2023 Assessment & Plan (10/08/2022 10:39 AM EDT): Pt denies any recent c/o Chest pain Pt has CAD S/P CABG in 2002. Pt under the care of [facility]. Last seen 02/20/2022 They recommended 3 [...] Terazosin. Patient was supposed to discuss with urologist/mechanical supervisor but doesn't seem to have happened. Adherence [...] Encounters Date Type Department Care Team Description 09/02/2024 1:00 PM EDT Office Visit [facility] ADULT DENTAL [address] [place] [address] Kristen Berg Dental calculus (Primary Dx) 08/21/2024 Refill [facility] [address] [place] [address] Jeff Arndt MD Primary insomnia 08/18/2024 Telephone [facility] [address] [place] [address] Jeff Arndt MD Elizabet Recall 08/17/2024 Travel 08/13/2024 Orders Only GENERIC EXTERNAL DATA DEPARTMENT Provider, Generic External Data 07/29/2024 Refill [facility] [address] [place] [address] Jeff Arndt MD Mixed hyperlipidemia 07/20/2024 Telephone [facility] [address] [place] [address] Jfef Arndt MD FYI from Last 3 Months Immunizations Immunization Administration Dates Next Due Influenza High-dose Quadriva [...] is your housing situation today? I have fredigeoffrey pryor 02/24/[address] you [...] Sign Reading Time Taken Comments Blood Pressure 128/74 09/02/2024 1:02 PM EDT Pulse 60 03/31/2024 9:05 AM EST Temperature [...] Description 04/12/2025 1:00 PM EST Office Visit [facility] [address] [place] [address] Morena, Kristen [address] [place] [address] Health Maintenance Due Date Last Done Comments [...] 08/04/2024 08/05/2023, 08/05/19 SDOH Screening 08/04/2024 08/05/2023 COVID-19 Vaccine ( season) 2024 02/12/2024, 03/31/2022, 08/17/2021, Additional history exists Diabetes: Hemoglobin A1C 02/16/2025 025, 02/12/2024, 08/04/2023, Additional history exists Dental Prophylaxis 03/05/2025 09/02/2024, 1 , 10/15/2013, Additional history exists Dental X-Ray: Bitewings 05/04/2025 05/03/20, 01/15/2024, 10/15/2013, Additional history exists Tobacco Screening 09/02/2025 09/02/2024 Dental X-Ray: Full Mouth 01/15/2027 01/15/2024, 12/2010 Colonoscopy 06/22/2034 03/12/2017 Colorectal Cancer Screening 06/22/2034 Pneumococcal Vaccine: 50+ Years Completed 10/22/2016, 04/04/2015, 09/15/2003 Zoster Vaccines Completed 03/26/2019, 12/2017, 06/16/2014 Hepatitis C Screening Completed 10/29/2022 Influenza Vaccine Completed 02/12/2024, , 02/27/2021, Additional [...] patient's age to complete this topic Meningococcal B Vaccine Aged Out No l onger eligible based on patient's age to complete [...] Author Blood Pressure < 140/90 Blood Pressure 128/74(2024 1:02 PM EDT) No Marco Hays PharmD Blood Pressure < 140/90 Blood Pressure Hypertension 128/74(2024 1:02 PM EDT) No Marco Hays PharmD Patient will adhere to medication regimen General Improving(02/2024 11:16 AM EDT) No Marco Hays PharmD Procedures Procedure Name Priority Date/Time Associated Diagnosis Comments ORAL HYGIENE INSTRUCTIONS Routine 09/02/2024 1:00 PM EDT Dental calculus PROPHYLAXIS - ADULT Routine 09/02/2024 1 :00 PM EDT Dental calculus POCT GLYCATED HEMOGLOBIN, TOTAL Routine 08/17/2024 11:21 AM EDT Type 2 diabetes mellitus without complication, without long-term current use of insulin (CMS/[facility]) PSA, TOTAL Routine 08/13/2024 7:24 AM EDT BITEWINGS - 4 RADIOGRAPHIC IMAGES Routine 05/03/2024 9:00 AM EST INTRAORAL - COMPLETE SERIES OF RADIOGRAPHIC IMAGES [...] Relevant to Health Maintenance Results * (ABNORMAL) POCT A1C (08/17/2024 11:21 AM EDT) Hemoglobin A1C 6.4(A) 4.0 - 6.0 % QC Media Lot # [id number] Lot# Expiration Date [id number] Blood 08/17/2024 11:2 1 AM EDT Billie Phan PharmD POINT OF CARE TEST ENTER/ELIZABETH T ORDERABLES Final Result * (ABNORMAL) PSA,Total (08/13/2024 7:24 AM EDT) Prostate Specific Antigen 6.73(H) <0.05 - 4.0 ng/mL [facility] Comment:PSA methodology: Payam Solano i ChemiluminescentMicroparticle Immunoassay (CMIA) 08/13/2024 7:24 AM EDT 08/13/2024 7:24 AM EDT Generic External Data Provider LAB BLOOD ORDERAB LES Final Result [facility] [address] [place] [phone] * Albumin, Random Urine W/Creatinine (06/02/2023 3:16 PM EST) Creatinine, Urine 207.30 mg/dL [facility] Microalbumin Urine 17.0 mg/L [facility] Microalbum Creatinine Ratio Ur 8.2 <30 ug/mg cr [facility] Comment:Albumin/Creatinine R atio Reference Ranges: Normal: < 30 ug/mg creatinine Microalbuminuria: 30 - 300 ug/mg creatinineClinical Albuminuria: > 300 ug/mg creatinine Urine (Urine, Random) 06/02/2023 3:16 PM EST 06/02/2023 4:16 PM EST Jeff Bazzi MD LAB URINE ORDERABLES Final Result [facility] [address] [place] [phone] * Lipid Panel with Reflex to Direct LDL (10/29/2022 10:18 AM EDT) Cholesterol, Total 132 <200 mg/dL [facility] [place] [facility] HDL Cholesterol 46 > OR = 40 mg/dL [facility] [place] [facility] Triglycerides 88 <150 mg/dL [facility] [place] [facility] LDL Cholesterol 69 mg/dL (calc) [facility] [place] [facility] Comment: Reference range: <100 Desirable range <100 mg/dL for primary prevention; ?? <70 mg/dL for patients with CHD or diabetic patients with > or = 2 CHD risk factors. LDL-C is now calculated using the Roger-Martha calculation, which is a validated novel method providing better accuracy than the Friedewald equation in the estimation of LDL-C. Roger SS et al. FRAN. 2013;310(19): 2360-9455 (http://education.GCD Systeme.Vend-a-Bar/faq/WWE036) Chol/HDLC Ratio 2.9 <5.0 (calc) [facility] [place] [facility] Non-HDL Cholesterol 86 <130 mg/dL (calc) [facility] [place] [facility] Comment: For patients with diabetes plus 1 major ASCVD risk factor, treating to a non-HDL-C goal of <100 mg/dL (LDL-C of <70 mg/dL) is considered a therapeutic option. 10/29/2022 10:1 8 AM EDT 10/29/2022 10:18 AM EDT Narrative [facility] - 10/29/2022 10:25 PM EDT FASTING:YES FASTING: YES us Jeff Bazzi MD LAB BLOOD ORDERABLES Final Result Performing Organization Address [facility]/ZIP Co de Phone Number [address], [facility] [place] [address] [facility] [phone] * Hepatitis C Antibody with Reflex to HCV, RNA, Quantitative, Real-Time PCR (10/29/2022 10:18 AM EDT) Hepatitis C Antibody NON-REACT PRUDENCE NON-REACT PRUDENCE [facility] Comment: HCV antibody was non-reactive. There is no laboratory evidence of HCV infection. In most cases, no further action is required. However, if recent HCV exposure is suspected, a test for HCV RNA (test code 58196) is suggested. For additional information please refer to http://education.CleanAgents.com/faq/SGI24a5 (This link is being provided for informational/ educational purposes only.) Blood Venous blood specimen / Unknown 10/29/2022 10:18 AM EDT 10/29/2022 10:18 AM EDT Narrative [facility] - 10/29/2022 10:25 PM EDT FASTING:YES FASTING: YES Jeff Bazzi MD LAB BLOOD ORDERABLES Final Result Performing Organization Address [facility] Co de Phone Number [address], [facility] [place] [address] [facility] [address] [phone] * Hm Colonoscopy (03/12/2017) Colonoscopy Normal Normal 03/12/2017 Historical Provider HEALTH MAINTENANCE Edited Result - Final from Last 3 Months or Most Recently Relevant to Health Maintenance Insurance [facility]TE [facility] - [facility] Advance Directives Documents on File Type Date Recorded Patient Heliarc Welder Expl anation Advance Directives and Livin g Will 02/10/2023 Health Care Proxy Care Teams Spray Gun Repairer Helper Relationship Specialty Start Date End Date Jeff Arndt MD [address] [place] [address] PCP - General Internal Medicine 12/14/13
--- OUTSIDE RECORDS SUMMARY | 2024-09-28 15:56 | XMS_ITS | Encounter Summary ---
Author Organization [email or web address] Address [address] [place] [address] 7 [place] [address] Care Team Providers Care Chef Instructor Name Role Phone Jeff Arndt MD Primary Care Provide r Marco Hays PharmD Unavailable [phone] Billie Phan PharmD Unavailable [phone] Encounter Details Date Type Department Care Team (Late st Contact Info) Description 05/22/2022 Orders Only [facility] MED[facility]INE [address] [place], [place] [phone] Rain Parada LPN Social History Tobacco Use [...] Description 04/12/2025 1:00 PM EST Office Visit [facility] ADULT DENTAL [address] [place], [place] [phone] Morena, Kristen [address] [place], [place] [phone] documented as of this encounter Visit Diagnoses Not on filedocumented in this encounter Care Teams Chef Instructor Relationship Specialty Start Date End Date Jeff Arndt MD [address] [place] [address] PCP - General Internal Medicine 12/14/13 Marco Hays, CarlaD [address] [place] [address] Pharmacist Internal Medicine 07/24/23 08/16/24 Billie Phan PharmD [address] [place] [address] Pharmacist Internal Medicine 08/17/24 08/18/24 documented as of this encounter
--- OUTSIDE RECORDS SUMMARY | 2024-09-28 15:56 | XMS_ITS | Encounter Summary ---
Author Organization [employer] Address [address] [place] [address] 7 [place] [address] Care Team Providers Care Glass Block Installer Name Role Phone Jeff Arndt MD Primary Care Provide r Marco Hays PharmD Unavailable [phone] Billie Phan PharmD Unavailable [phone] Encounter Details Date Type Department Care Team (Late st Contact Info) Description 09/12/2022 Abstract [facility] MED[facility]INE [address] [place], [place] [phone] Jeff Arndt MD [address] [place], [place] [phone] Social History Tobacco Use Types Packs/Day Years [...] Description 04/12/2025 1:00 PM EST Office Visit [facility] ADULT DENTAL [address] [place], [place] [phone] Kristen Berg [address] [place] [address] documented as of this encounter Procedures Procedure Name Priority Date/Time Associated Diagnosis Comments HM COLONOSCOPY Routine 03/12/2017 documented in this encounter Results * Hm Colonoscopy (03/12/2017) Colonoscopy Normal Normal 03/12/2017 us Historical Provider [facility] MAIN[facility] Edited Result - Final documented in this encounter Visit Diagnoses Not on filedocumented in this encounter Care Teams Glass Block Installer Relationship Specialty Start Date End Date Jeff Arndt MD [address] [place] [address] PCP - General Internal Medicine 12/14/13 Marco Hays, CarlaD [address] [place] [address] Pharmacist Internal Medicine 07/24/23 08/16/24 Billie Phan, CarlaD [address] [place] [address] Pharmacist Internal Medicine 08/17/24 08/18/24 documented as of this encounter
--- OUTSIDE RECORDS SUMMARY | 2024-09-28 15:56 | XMS_ITS | Encounter Summary ---
Author Organization [facility] Address [address] [place] [address] 7 [place] [address] Care Team Providers Care Bankruptcy Law Specialist Name Role Phone Jeff Arndt MD Primary Care Provide r Marco Hays PharmD Unavailable [phone] Billie Phan PharmD Unavailable [phone] Encounter Details Date Type Department Care Team (Late st Contact Info) Description 07/24/2022 Orders Only [facility] MEDICINE [address] [place], [place] [phone] Rain Parada LPN Social History Tobacco Use [...] Description 04/12/2025 1:00 PM EST Office Visit [facility] ADULT DENTAL [address] [place], [place] [phone] Morena, Kristen [address] [place], [place] [phone] documented as of this encounter Visit Diagnoses Not on filedocumented in this encounter Care Teams Bankruptcy Law Specialist Relationship Specialty Start Date End Date Jeff Arndt MD [address] [place] [address] PCP - General Internal Medicine 12/14/13 Marco Hays, CarlaD [address] [place] [address] Pharmacist Internal Medicine 07/24/23 08/16/24 Billie Phan PharmD [address] [place] [address] Pharmacist Internal Medicine 08/17/24 08/18/24 documented as of this encounter
== END 2024-09-28 16:15 | disposition home or self-care (01) ==
LOC: HO.HSMS 14:33
PROVIDERS: PCP Internal Medicine; Visit Provider Physician Assistant Medical
DX: G47.19 Other hypersomnia (principal)
CPT/HCPCS: 99214

== ENCOUNTER → 2024-09-28 14:32 | Outpatient (BNVA) | payer OTHER, SELFPAY | PROVIDERS: PCP Internal Medicine; Visit Provider Physician Assistant Medical | DX: G47.19 Other hypersomnia (principal) | CPT/HCPCS: 99212 ==

== ENCOUNTER 2024-12-20 08:07 | Outpatient (REF) | payer OTHER, SELFPAY ==
--- OUTSIDE RECORDS SUMMARY | 2024-12-20 08:18 | XMS_ITS | Encounter Summary ---
Author Organization [employer] Address [address] [facility] 7 [place] [address] Care Team Providers Care Child Development Director Name Role Phone Jeff Arndt MD Primary Care Provide r Reason for Visit * Reason Comments Med Refill Encounter Details Date Type Department Care Team (Late st Contact Info) Description 11/08/2024 Refill [facility] [address] [place], [place] [phone] Jeff Arndt MD [address] [place], [place] [phone] Atrial fibrillation, unspecified type (CMS/HCC) Social History [...] Description 04/12/2025 1:00 PM EST Office Visit [facility] ADULT [facility] [address] [place] [address] Morena, Kristen [address] [place] [address] documented as of this encounter Goals Goal [...] documented as of this encounter Care Teams Child Development Director Relationship Specialty Start Date End Date Jeff Arndt MD [address] [place] [address] PCP - General Internal Medicine 12/14/13 documented as of this encounter
--- OUTSIDE RECORDS SUMMARY | 2024-12-20 08:19 | XMS_ITS | Patient Health Record ---
Author Organization [employer] Address [address] [place] [phone] Care Team Providers Care Derrick Builder Name Role Phone Demetrio Serna Jr Reason For Referral No Information Plan Of Treatment No Information
--- OUTSIDE RECORDS SUMMARY | 2024-12-20 08:19 | XMS_ITS | Clinical Summary ---
Author Organization [facility] Address [address] [place] [address] Care Team Providers Care Alumni Secretary Name Role Phone Unavailable Primary Care Provider [...]
[2024-12-20 08:44] LABS: Hematocrit 39.8 % (42.0-52.0); Hemoglobin 12.5 g/dl (14.0-18.0); Mean Corpuscular HGB Conc 31.4 g/dl (31.0-36.0); Mean Corpuscular Hemoglobin 28.8 pg (27.0-33.0); Mean Corpuscular Volume 91.7 fL (80.0-98.0); NRBC Abs Auto 0.000 X10*3/uL (0.0-0.012); NRBC Pct Auto 0.0 /100WBC (0.0-0.2); Platelet Count 132 X10*3/uL (160-400); Red Blood Count 4.34 X10*6/uL (4.60-5.80); White Blood Count 5.9 X10*3/uL (4.8-10.8)
[2024-12-20 09:12] LABS: Hemoglobin A1C 233.8689 umol/L; Total Hemoglobin (HGBA1C) 4906.6662 umol/L
[2024-12-20 09:22] LABS: Alanine Aminotransferase 17 U/L (0-40); Albumin Level 4.1 g/dL (3.5-5.0); Alkaline Phosphatase 75 U/L (39-117); Anion Gap 8 (12-20); Aspartate Amino Transferase 25 U/L (5-37); Blood Urea Nitrogen 17 mg/dL (9-16); Calcium 8.5 mg/dL (8.4-10.2); Carbon Dioxide 26 mmol/L (22-29); Chloride 112 mmol/L (96-108); Cholesterol 123 mg/dL (<200); Estimated Glomerular Filt Rate > 60; HDL Cholesterol 46 mg/dL (>40); Magnesium 2.0 mg/dL (1.6-2.6); Potassium 4.0 mmol/L (3.3-5.1); Sodium 142 mmol/L (135-145); Total Protein 7.3 g/dL (6.5-8.0); Triglycerides 64 mg/dL (<150)
[2024-12-20 09:31] LABS: Microalbum/Creatinine Ratio Ur 5.8 ug/mg cr (<30)
[2024-12-20 09:41] LABS: Ferritin 37 ng/mL (20-250); PSA,Total (Free>4and<10) 6.97 ng/mL (0.00-4.00)
[2024-12-20 09:45] LABS: Folate 7.8 ng/mL (> or = 4.0); Vitamin B12 304 pg/mL (200-900)
[2024-12-20 10:34] LABS: Reflex LDLD? No
[2024-12-21 12:22] LABS: Free Prostate Spec Ag 1.1 ng/mL; Percent Free Prostate Spec Ag 17 % (calc) (>25)
== END 2024-12-20 08:08 | disposition home or self-care (01) ==
LOC: HO.LAB 08:07
PROVIDERS: Nurse Practitioner Family; Pharmacist; PCP Internal Medicine; Visit Provider Physician Assistant Medical
DX: G47.19 Other hypersomnia (principal); R53.83 Other fatigue; G47.9 Sleep disorder, unspecified; E78.2 Mixed hyperlipidemia; E11.9 Type 2 diabetes mellitus without complications; R97.20 Elevated prostate specific antigen [PSA]; Z12.5 Encounter for screening for malignant neoplasm of prostate
CPT/HCPCS: 36415; 80053; 80061; 82043; 82248; 82306; 82570; 82607; 82728; 82746; 83036; 83090; 83735; 83921; 84153; 84154; 84443; 85027

== ENCOUNTER 2024-12-28 08:42 | Outpatient (REF) | payer OTHER, SELFPAY ==
--- OUTSIDE RECORDS SUMMARY | 2024-12-28 09:28 | XMS_ITS | Patient Health Record ---
Author Organization [facility] Address [address] [place] [phone] Care Team Providers Care Admin Assistant Name Role Phone Demetrio Serna Jr Reason For Referral No Information Plan Of Treatment No Information
--- OUTSIDE RECORDS SUMMARY | 2024-12-28 09:28 | XMS_ITS | Clinical Summary ---
Author Organization [facility] Address [address] [place] [address] Care Team Providers Care Chain Tender Name Role Phone Unavailable Primary Care Provider [...]
--- OUTSIDE RECORDS SUMMARY | 2024-12-28 09:28 | XMS_ITS | Encounter Summary ---
Author Organization [employer] Address [address] [facility] 7 [place] [address] Care Team Providers Care Regulatory Internship Name Role Phone Jeff Arndt MD Primary Care Provide r Reason for Visit * Reason Comments Med Refill Encounter Details Date Type Department Care Team (Late st Contact Info) Description 11/08/2024 Refill [facility] MEDICINE [address] [place], [place] [phone] Jeff Arndt MD [address] [place], [place] [phone] Atrial fibrillation, unspecified type (CMS/HCC) Social History [...] Description 04/12/2025 1:00 PM EST Office Visit [facility] ADULT DENTAL [address] [place] [address] Morena, Kristen [address] [place] [address] documented as of this encounter Goals Goal [...] documented as of this encounter Care Teams Regulatory Internship Relationship Specialty Start Date End Date Jeff Arndt MD [address] [place] [address] PCP - General Internal Medicine 12/14/13 documented as of this encounter
[2024-12-28 10:39] LABS: Folate 9.7 ng/mL (> or = 4.0); Vitamin B12 363 pg/mL (200-900)
== END 2024-12-28 08:43 | disposition home or self-care (01) ==
LOC: HO.LAB 08:42
PROVIDERS: PCP Internal Medicine; Visit Provider Pharmacist
DX: E11.9 Type 2 diabetes mellitus without complications (principal)
CPT/HCPCS: 36415; 82607; 82746

== ENCOUNTER 2025-01-03 08:41 | Outpatient (AMB) | payer OTHER, SELFPAY ==
--- OUTSIDE RECORDS SUMMARY | 2025-01-03 09:11 | XMS_ITS | Encounter Summary ---
Author Organization [employer] Address [address] [facility] 7 [place] [address] Care Team Providers Care Tenterer Name Role Phone Jeff Arndt MD Primary Care Provide r Reason for Visit * Reason Comments Med Refill Encounter Details Date Type Department Care Team (Late st Contact Info) Description 11/08/2024 Refill [facility] MEDICINE [address] [place], [place] [phone] Jeff Arndt MD [address] [place], [place] [phone] Atrial fibrillation, unspecified type (CMS/HCC) Social History [...] Description 04/12/2025 1:00 PM EST Office Visit [facility] ADULT DENTAL [address] [place] [address] Morena, Kristen [address] [place] [address] documented as of this encounter Goals Goal [...] documented as of this encounter Care Teams Tenterer Relationship Specialty Start Date End Date Jeff Arndt MD [address] [place] [address] PCP - General Internal Medicine 12/14/13 documented as of this encounter
--- OUTSIDE RECORDS SUMMARY | 2025-01-03 09:11 | XMS_ITS | Clinical Summary ---
Author Organization [facility] Address [address] [place] [address] Care Team Providers Care Event Sales Manager Name Role Phone Unavailable Primary Care Provider [...]
--- NOTE | 2025-01-03 09:27 | A.OFFVIS_ITS ---
Vital Signs 01/03/25 09:34 Height 5 ft 6 in Weight 271 lb BMI 43.7 BP 132/68 Blood Pressure Location Rt brachial Position Sitting Pulse 74 Pulse Source Pulse Oximeter Pulse Oximetry (%) 96 Oxygen Delivery Method Room Air Intake Visit Reasons: 6 mo f/u Intake Note: ESTABLISHED PATIENT for mgmt of GERD + CIC. Chief Complaint; Pt denies any GI changes or new sx since last visit. Confirms that his current Rx therapy is OK. Analyst Competitive Intelligence Required: Yes Analyst Competitive Intelligence Services: Analyst Competitive Intelligence Present Analyst Competitive Intelligence Name: Kareem [id number] + [facility] [place] Information Interpreted: clinical only Accompanied by: Self / Same As Patient Allergies No Known Allergies Allergy (Verified 09/28/24 15:25) HPI HPI 6 mo f/u: Details: LAST VISIT: GERD (gastroesophageal reflux disease) Chronic idiopathic constipation Status post colonoscopy Plan Colonoscopy in 10 years if health allows, sooner if clinically necessary. The patient reports that pantoprazole has been working for him as well as the famotidine. Patient denies eating late at night. Discussed with patient importance of avoiding dietary triggers in the dense 19. Standing upright for minimum 3 hours after meals discussed with him. Follow-up in the office in 6 months, sooner on a as needed basis. Patient is agreeable to this plan and verbalizes understanding of instructions. He was given opportunity to ask questions and all questions answered. ? Thank you for allowing me to participate in his care Refilled pantoprazole take one tablet half an hour before breakfast 40 mg PO DAILY 90 tabs 3RF K21.9 famotidine 40 mg PO BEDTIME 90 tabs 3RF K21.9 TODAY'S VISIT Patient is here today for follow-up. Patient reports that since last visit he has been doing well. He is taking pantoprazole every morning before breakfast and famotidine at bedtime and he is not having any acid reflux. Patient denies dyspepsia, dysphagia or odynophagia. Denies melena, hematochezia, unintentional weight loss or ribbon like stools. Patient denies any GI concerning symptoms and reports to be feeling well. Moving his bowels without any issues. Patient reports that he is taking senna daily [facility] Medical History Unable to read or write Sleep apnea Diabetes Lipoma of back Morbid obesity Exertional chest pain Congestive heart failure BPH (benign prostatic hyperplasia) CAD (coronary artery disease) Atrial fibrillation GERD (gastroesophageal reflux disease) High cholesterol HTN (hypertension) Surgical History Status post excision of lipoma (~07/03/21) History of esophagogastroduodenoscopy (EGD) H/O colonoscopy Hx of CABG Family History Mother Cardiac disease Cancer Father Prostate cancer Cardiac disease Social History Household Members: Spouse Housing: Apartment Are you a primary home day care provider to a significant other at home: No Do you presently have visiting nurse or other home services: No Alcohol intake: never Patient Tobacco Use Status: Former Tobacco user Tobacco use type: Cigarette service: No Current occupational status: unemployed Review of Systems Const Denies weight gain and Denies weight loss ENT Reports no additional complaints, Denies dysphagia and Denies odynophagia Card Reports no additional complaints Resp Reports no additional complaints GI Denies abdominal pain, Denies belching, Denies melena, Denies bloating, Denies change in bowel habits, Denies dysphagia, Denies excessive flatus, Denies dyspepsia, Denies heartburn, Denies diarrhea, Denies loose stools, Denies nausea, Denies odynophagia and Denies vomiting Reports no additional complaints Musc Reports no additional complaints Neuro Reports no additional complaints Psych Reports no additional complaints Endo Reports no additional complaints Physical Exam Vital Signs: Last Vital Signs Pulse 74 01/03/25 09:34 BP 132/68 01/03/25 09:34 Pulse Ox 96 01/03/25 09:34 Oxygen Delivery Method Room Air 01/03/25 09:34 BMI result Body Mass Index 43.7 Const General: healthy appearing and no acute distress Nutritional Appearance: obese Orientation/consciousness: patient oriented x3 Resp Effort & Inspection: normal respiratory effort, able to speak in complete sentences, no tracheal deviation and symmetric chest movement Auscultation: clear to auscultation bilaterally Cardio Rate: regular rate GI Inspection: Yes normal to inspection, No distended and Yes obesity Palpation (GI): Soft to palpation, not firm, nontender and No hepatosplenomegaly present Auscultation: normal bowel sounds General: Yes no CVA tenderness Back/Spine/Pelvis Back: no CVA tenderness Skin General skin exam: elasticity normal, turgor normal and dry skin Neuro General: patient oriented x3 Psych Appearance: grossly normal Mental Status: mental status grossly normal Assessment & Plan Assessment & Plan (1) Gastroesophageal reflux disease: Code(s): K21.9 - Gastro-esophageal reflux disease without esophagitis Qualifiers: Esophagitis presence: esophagitis presence not specified Qualified Code(s): K21.9 - Gastro-esophageal reflux disease without esophagitis (2) Chronic idiopathic constipation: Code(s): K59.04 - Chronic idiopathic constipation Plan Continue pantoprazole in the morning and famotidine at bedtime. Avoid dietary triggers and late night snacking. Staying upright for minimum 3 hours after meals discussed with patient. Patient will continue taking senna 1-2 tablets every evening. Increase fluid intake and activity to promote better bowel motility. Follow-up in the office in 6 months. Patient was encouraged to call our office if he will have any GI concerning symptoms. He is agreeable to this plan and verbalizes understanding of instructions. He was given the opportunity to ask questions and all questions answered. Thank you for allowing me to participate in his care Coding Level of Care Code Est Pt Level 3 (17749) Diagnoses Gastroesophageal reflux disease, unspecified whether esophagitis present K21.9 Esophagitis presence: esophagitis presence not specified Chronic idiopathic constipation K59.04 Time Spent (min) 30 Comment 20 minutes spent with patient and additional 10 minutes spent reviewing his records
[2025-01-03 09:34] VITALS: BP 132/68; PULSE 74; O2SAT 96; BMI 43.7
== END 2025-01-03 09:57 | disposition home or self-care (01) ==
LOC: HO.HGI 08:42
PROVIDERS: PCP Internal Medicine; Visit Provider Nurse Practitioner Family
DX: K21.9 Gastro-esophageal reflux disease without esophagitis (principal); K59.04 Chronic idiopathic constipation
CPT/HCPCS: 99213

== ENCOUNTER → 2025-01-03 08:41 | Outpatient (BNVA) | payer OTHER, SELFPAY | PROVIDERS: PCP Internal Medicine; Visit Provider Nurse Practitioner Family | DX: K21.9 Gastro-esophageal reflux disease without esophagitis (principal); K59.04 Chronic idiopathic constipation | CPT/HCPCS: 99212 ==